=== PATIENT | female | born 1965 | race Caucasian/White ===

== ENCOUNTER 2019-03-08 15:32 | Emergency (ER) | payer OTHER ==
--- NOTE | 2019-03-08 17:47 | ED Physician Documentation ---
PD HPI OPHTHO - Stated complaint Stated Complaint: LEFT EYE REDNESS - History obtained from History obtained from: Patient - History of Present Illness Timing - onset: Today Timing - details: Still present Location: Left Associated symptoms: Redness Similar symptoms before: Has not had sx before - Additional information Additional information: The patient is a 53-year-old female who presents with redness of her left eye. It was noticed by her about one hour prior to arrival. She denies any traumatic injury. She denies any change in her visual acuity. She denies history of similar symptoms in the past. She wears corrective lenses. Review of Systems Constitutional: denies: Fever Eyes: reports: Other (Red discoloration left eye.). denies: Loss of vision, Decreased vision, Photophobia, Discharge, Irritation Ears: denies: Ear pain, Tinnitus/ringing Nose: reports: Congestion (slight) Throat: denies: Sore throat Cardiac: denies: Chest pain / pressure Respiratory: denies: Dyspnea, Cough GI: denies: Abdominal Pain, Nausea, Vomiting Skin: denies: Rash Musculoskeletal: denies: Neck pain, Extremity pain Neurologic: reports: Headache (mild). 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, Other - Present Medications Home Medications: Ambulatory Orders Medication Instructions Recorded Confirmed Cetirizine HCl 10 mg PO DAILY 03/08/19 03/08/19 - Allergies Allergies/Adverse Reactions: Allergies Allergy/AdvReac Type Severity Reaction Status Date / Time Sulfa (Sulfonamide Allergy Rash Verified 11/29/15 15:40 Antibiotics) codeine AdvReac Emesis Verified 11/29/15 15:40 - Social History Does the pt smoke?: No Smoking Status: Never smoker Does the pt drink ETOH?: No Does the pt have substance abuse?: No - Immunizations Immunizations are current?: Yes PD ED PE NORMAL - Vitals Vital signs reviewed: Yes - General General: Alert and oriented X 3, Well developed/nourished - HEENT HEENT: Atraumatic, PERRL, EOMI, Pharynx benign, Other (Scleral hemorrhages noted on the inferior and medial aspects of the sclera of the left eye. Visual acuity is 20/15 in the left eye with corrective lenses, and 20/20 in the right eye.) - Neck Neck: Supple, no meningeal sign, No adenopathy - Cardiac Cardiac: RRR - Respiratory Respiratory: No respiratory distress - Neuro Neuro: Alert and oriented X 3, No motor deficit, Normal speech Results - Vitals Vitals: Oxygen O2 Source Room air PD MEDICAL DECISION MAKING - ED course Complexity details: considered differential, d/w patient, d/w family ED course: The patient's presentation is significant for scleral hemorrhage of the left eye. There is no history of trauma, and no evidence of foreign body or conjunctival injury. Visual acuity is intact. No further medical treatment as clinically indicated at this time. I discussed with the patient and her the expected course of symptoms, as well as potentially worrisome signs or symptoms that should prompt reevaluation in the emergency department. Departure - Departure Disposition: 01 Home, Self Care Clinical Impression: Scleral hemorrhage of left eye Condition: Stable Instructions: ED Eye Injury Subconj Hemorrhage Follow-Up: Sienna Jara ARNP [Primary Care Provider] - Comments: Try to avoid rubbing your eye. Follow-up with your primary physician, or return to the emergency department, if you develop increasing pain or decreasing visual acuity in your eye, or otherwise worsening symptoms. Discharge Date/Time: 03/08/19 17:52
== END 2019-03-08 17:52 | disposition home or self-care (01) ==
LOC: ED 15:50
DX: H11.32 Conjunctival hemorrhage, left eye (principal)
CPT/HCPCS: 99282

== ENCOUNTER 2019-09-13 12:54 | Emergency (ER) | payer OTHER ==
[2019-09-13 13:02] VITALS: BP 147/81
[2019-09-13] MEDS ORDERED: LIDOCAINE 1% 2 ML VIAL MC ONE (13:14)
[2019-09-13] MEDS ORDERED: cefTRIAXone 1 GM VIAL IM STA (13:14)
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
== END 2019-09-13 13:33 | disposition home or self-care (01) ==
LOC: ED 12:54
DX: L03.211 Cellulitis of face (principal); T20.10XA Burn of first degree of head, face, and neck, unspecified site, initial encounter; X10.2XXA Contact with fats and cooking oils, initial encounter; L01.00 Impetigo, unspecified
CPT/HCPCS: 99282; 99283

== ENCOUNTER 2019-09-14 13:53 | Observation (INO) | payer OTHER ==
[2019-09-14] MEDS ORDERED: PIPERACILLIN/TAZOBACTAM 3.375 GM in SODIUM CHLORIDE 0.9% MINIBAG 100 ML IV STA (14:15)
[2019-09-14] MEDS ORDERED: VANCOMYCIN INJ 1 GM in SODIUM CHLORIDE 0.9% 500 ML IV STA (14:15)
[2019-09-14 14:30] LABS: BASOPHILS # (AUTO) 0.1 10^3/uL (0.0-0.1); BASOPHILS % (AUTO) 0.9 %; EOSINOPHILS # (AUTO) 0.5 10^3/uL (0.0-0.7); EOSINOPHILS % (AUTO) 6.2 %; HGB - HEMOGLOBIN 15.1 g/dL (12.0-16.0); LYMPHOCYTES # (AUTO) 1.9 10^3/uL (1.5-3.5); LYMPHOCYTES % (AUTO) 24.6 %; MEAN CORPUSCULAR HEMOGLOBIN 30.3 pg (27.0-31.0); MEAN CORPUSCULAR HGB CONC 33.2 g/dL (32.0-36.0); MEAN CORPUSCULAR VOLUME 91.4 fL (81.0-99.0); MEAN PLATELET VOLUME 9.8 fL (7.9-10.8); MONOCYTES # (AUTO) 0.7 10^3/uL (0.0-1.0); MONOCYTES % (AUTO) 9.4 %; NEUTROPHILS # (AUTO) 4.6 10^3/uL (1.5-6.6); NEUTROPHILS % (AUTO) 58.5 %; PLT - PLATELET COUNT 238 10^3/uL (130-450); RED BLOOD COUNT 4.98 10^6/uL (4.20-5.40); RED CELL DISTRIBUTION WIDTH 13.2 % (12.0-15.0); WHITE BLOOD COUNT 7.8 x10^3/uL (4.8-10.8)
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
[2019-09-14 14:39] LABS: CALCIUM 9.9 mg/dL (8.5-10.3); CREATININE 0.6 mg/dL (0.4-1.0)
[2019-09-14] MEDS ORDERED: PROCHLORPERAZINE 10 MG/2 ML VIAL IVP PRN (15:21)
[2019-09-14] MEDS ORDERED: SODIUM CHLORIDE FLUSH 0.9% 10 ML SYRINGE IVP PRN (15:21)
[2019-09-14] MEDS ORDERED: traMADol 50 MG TABLET PO PRN (15:25)
[2019-09-14] MEDS ORDERED: VANCOMYCIN PER PHARMACY 100 GM in SODIUM CHLORIDE 0.9% 250 ML IV SCH (16:00)
[2019-09-14] MEDS ORDERED: D5NS W/20 MEQ KCL 1,000 ML IV SCH (17:00)
[2019-09-14] MEDS: SODIUM CHLORIDE FLUSH 0.9% 10 ML SYRINGE IVP SCH (17:22)
[2019-09-14] MEDS: ACETAMINOPHEN 325 MG TABLET PO PRN (18:00)
[2019-09-14] MEDS ORDERED: diphenhydrAMINE 25 MG CAPSULE PO PRN (19:15)
[2019-09-14] MEDS: diphenhydrAMINE 25 MG CAPSULE PO PRN (19:36)
[2019-09-14] MEDS: PIPERACILLIN/TAZOBACTAM 3.375 GM in SODIUM CHLORIDE 0.9% MINIBAG 100 ML IV SCH (22:10)
[2019-09-14] MEDS: FAMOTIDINE 20 MG TABLET PO SCH (22:10)
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
[2019-09-15] MEDS: VANCOMYCIN INJ 1 GM in SODIUM CHLORIDE 0.9% 250 ML IV SCH ×2 (03:51→15:49)
[2019-09-15] MEDS: diphenhydrAMINE 25 MG CAPSULE PO PRN (04:02)
[2019-09-15] MEDS: ACETAMINOPHEN 325 MG TABLET PO PRN ×2 (04:02→08:40)
[2019-09-15] MEDS: SODIUM CHLORIDE FLUSH 0.9% 10 ML SYRINGE IVP SCH ×2 (04:06→08:42)
[2019-09-15 04:50] LABS: BASOPHILS # (AUTO) 0.1 10^3/uL (0.0-0.1); BASOPHILS % (AUTO) 0.9 %; EOSINOPHILS # (AUTO) 0.6 10^3/uL (0.0-0.7); HGB - HEMOGLOBIN 12.2 g/dL (12.0-16.0); LYMPHOCYTES # (AUTO) 2.2 10^3/uL (1.5-3.5); LYMPHOCYTES % (AUTO) 29.9 %; MEAN CORPUSCULAR HEMOGLOBIN 29.3 pg (27.0-31.0); MEAN CORPUSCULAR HGB CONC 32.3 g/dL (32.0-36.0); MEAN CORPUSCULAR VOLUME 90.9 fL (81.0-99.0); MEAN PLATELET VOLUME 9.7 fL (7.9-10.8); MONOCYTES # (AUTO) 0.9 10^3/uL (0.0-1.0); MONOCYTES % (AUTO) 12.1 %; NEUTROPHILS # (AUTO) 3.6 10^3/uL (1.5-6.6); NEUTROPHILS % (AUTO) 48.7 %; PLT - PLATELET COUNT 174 10^3/uL (130-450); RED BLOOD COUNT 4.16 10^6/uL (4.20-5.40); RED CELL DISTRIBUTION WIDTH 13.4 % (12.0-15.0); WHITE BLOOD COUNT 7.4 x10^3/uL (4.8-10.8)
[2019-09-15 04:59] LABS: CALCIUM 8.4 mg/dL (8.5-10.3); CREATININE 0.5 mg/dL (0.4-1.0); MAGNESIUM 1.6 mg/dL (1.7-2.8)
[2019-09-15] MEDS: PIPERACILLIN/TAZOBACTAM 3.375 GM in SODIUM CHLORIDE 0.9% MINIBAG 100 ML IV SCH ×2 (05:57→14:15)
[2019-09-15] MEDS ORDERED: diphenhydrAMINE 25 MG CAPSULE PO PRN (07:17)
[2019-09-15] MEDS: FAMOTIDINE 20 MG TABLET PO SCH (08:41)
[2019-09-15] MEDS ORDERED: POLYETHYLENE GLYCOL 3350 17 GM PACKET PO SCH (09:00)
[2019-09-15] MEDS ORDERED: LORATADINE 10 MG TABLET PO SCH (09:00)
[2019-09-15] MEDS ORDERED: MAGNESIUM OXIDE 400 MG TABLET PO SCH (09:00)
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
[2019-09-15 14:41] LABS: HEMOGLOBIN A1C 0.54 g/dL
--- NOTE | 2019-09-15 14:48 | CT Report ---
Reason: swollen eyes and recent URI, eval for sinusitis Procedure Date: 09/15/2019 Accession Number: [id number] / [id number] Procedure: CT - Sinuses CPT Code: FULL RESULT: EXAM: CT SINUS EXAM DATE: 09/15/2019 02:31 PM. HISTORY: Swollen eyes and recent URI, eval for sinusitis. COMPARISONS: HEAD W/O 11/29/2015 5:25 PM. TECHNIQUE: Routine multi-axial CT imaging performed through the sinuses. Iodinated IV contrast: None. Reconstructions: Multiplanar reformats. In accordance with CT protocol optimization, one or more of the following dose reduction techniques were utilized for this exam: automated exposure control, adjustment of mA and/or KV based on patient size, or use of iterative reconstructive technique. FINDINGS: RIGHT Frontal: Normal. Ethmoid: Opacification of several right-sided ethmoid air cells. Maxillary: Mild mucosal thickening, predominantly within the antrum floor and medial wall. Sphenoid: Normal. Drainage Pathways: Frontal recess appears patent. Right ostiomeatal unit appears occluded by soft tissue thickening, further narrowed by a right-sided Mary Beth cell. LEFT Frontal: Normal. Ethmoid: Normal. Maxillary: Normal. Sphenoid: Normal. Drainage Pathways: The frontal recess, ostiomeatal complex and sphenoethmoidal recess are patent and normal. Accessory ostium noted. Nasal Cavity: Deviation of the nasal septum to the left. Otherwise, unremarkable. Osseous Structures: Unremarkable. Orbits: Unremarkable. Other: None. IMPRESSION: Mild mucosal disease on the right with occlusion of the right ostiomeatal unit. Otherwise, paranasal sinus CT is unremarkable. RADIA
[2019-09-15] MEDS ORDERED: INSULIN ASPART 300 UNIT/3 ML PEN SUBQ SCH (17:00)
[2019-09-15 17:48] VITALS: BP 120/72
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
== END 2019-09-15 17:56 | disposition home or self-care (01) ==
LOC: ED 13:53 → MS3 15:20
PROVIDERS: ADMIT Internal Medicine; ATTEND Internal Medicine
DX: L03.211 Cellulitis of face (principal); T20.03XA Burn of unspecified degree of chin, initial encounter; J01.90 Acute sinusitis, unspecified; R73.03 Prediabetes; Z87.891 Personal history of nicotine dependence; R51 Headache
CPT/HCPCS: 36415; 70486; 80048; 83036; 83735; 85025; 96361; 96365; 96366; 96367; 96375; 99284; 99285; A9270; G0378; J3370

== ENCOUNTER 2023-03-28 11:07 | Emergency (ER) | payer OTHER ==
[2023-03-28 11:24] VITALS: BP 134/76
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
--- OUTSIDE RECORDS SUMMARY | 2023-03-28 12:19 | EXTERNAL MEDICAL SUMMARY RPT | Continuity of Care Document ---
Author Name Unknown Address [address] [place] [address] Phone Organization [facility] Address [address] [place] [address] Phone Care Team Providers Care Lacemaker Name Role Phone Flora Bae Unavailable Unavailable Allergies and Intolerances date description facility type (no date) [facility] (unknown) Immunizations date description facility 2023-03-22 00:00 Tetanus, Diphtheria, Pertussis (Tdap) [facility] Results/Labs test date author facility value unit interpretation Result panel 1 (unknown) (no date) (unknown) (unknown) (no value) (units unknown) (unknown) (unknown) (no date) (unknown) (unknown) [id number] (units unknown) (unknown) (unknown) (no date) (unknown) (unknown) 03/22/23 (units unknown) (unknown) (unknown) (no date) (unknown) (unknown) 11:12 (units unknown) (unknown) (unknown) (no date) (unknown) (unknown) Age/Sex: 58 / F Date of Service: (units unknown) (unknown) (unknown) (no date) (unknown) (unknown) Allergies (units unknown) (unknown) (unknown) (no date) (unknown) (unknown) [facility] (units unknown) (unknown) (unknown) (no date) (unknown) (unknown) [place] [address] (units unknown) (unknown) (unknown) (no date) (unknown) (unknown) Attending Dr: Flora Bae P.A-C (units unknown) (unknown) (unknown) (no date) (unknown) (unknown) BMI 2.2 (units unknown) (unknown) (unknown) (no date) (unknown) (unknown) BP 142/90 H (units unknown) (unknown) (unknown) (no date) (unknown) (unknown) Blood Pressure Location Lt brachial (units unknown) (unknown) (unknown) (no date) (unknown) (unknown) : 7 Acct:[id number] (units unknown) (unknown) (unknown) (no date) (unknown) (unknown) Dept at . (units unknown) (unknown) (unknown) (no date) (unknown) (unknown) Documented By: Flora Bae 03/22/23 1108 (units unknown) (unknown) (unknown) (no date) (unknown) (unknown) Draft (units unknown) (unknown) (unknown) (no date) (unknown) (unknown) Height 5 ft (units unknown) (unknown) (unknown) (no date) (unknown) (unknown) Hives (units unknown) (unknown) (unknown) (no date) (unknown) (unknown) Intake Note: (units unknown) (unknown) (unknown) (no date) (unknown) (unknown) Intake perform ed by: Shamar Mcqueen (units unknown) (unknown) (unknown) (no date) (unknown) (unknown) Intake (units unknown) (unknown) (unknown) (no date) (unknown) (unknown) Intake- Alex hinds Staff (units unknown) (unknown) (unknown) (no date) (unknown) (unknown) Loc: [facility] (units unknown) (unknown) (unknown) (no date) (unknown) (unknown) Medications (units unknown) (unknown) (unknown) (no date) (unknown) (unknown) No Known Home Medications 03/22/23 [History Confirmed 03/22/23] (units unknown) (unknown) (unknown) (no date) (unknown) (unknown) Oxygen Deliver y Method room air (units unknown) (unknown) (unknown) (no date) (unknown) (unknown) PFSH (units unknown) (unknown) (unknown) (no date) (unknown) (unknown) Patient: Delphine Loco MR#: [id number] (units unknown) (unknown) (unknown) (no date) (unknown) (unknown) Position Sitting (un its unknown) (unknown) (unknown) (no date) (unknown) (unknown) Pt presents wi th a rash on chest for a week. Started off as a grease burn. (units unknown) (unknown) (unknown) (no date) (unknown) (unknown) Pulse 81 (units unknown) (unknown) (unknown) (no date) (unknown) (unknown) Pulse Oximetry (%) 99 (units unknown) (unknown) (unknown) (no date) (unknown) (unknown) Pulse Source Monitor (units unknown) (unknown) (unknown) (no date) (unknown) (unknown) Rash (units unknown) (unknown) (unknown) (no date) (unknown) (unknown) Reason For Visit (un its unknown) (unknown) (unknown) (no date) (unknown) (unknown) Signed By: (units unknown) (unknown) (unknown) (no date) (unknown) (unknown) Smoking Status : Former smoker (units unknown) (unknown) (unknown) (no date) (unknown) (unknown) Sulfa (Sulfona mide Antibiotics) Allergy (Mild, Verified 03/22/23 11:12) (units unknown) (unknown) (unknown) (no date) (unknown) (unknown) Temp 98.5 F (units unknown) (unknown) (unknown) (no date) (unknown) (unknown) Temp Source Skin (un its unknown) (unknown) (unknown) (no date) (unknown) (unknown) This note may have been all or partially generated using voice recognition (units unknown) (unknown) (unknown) (no date) (unknown) (unknown) Tobacco + Subs tance Use (units unknown) (unknown) (unknown) (no date) (unknown) (unknown) Tobacco Status (unit s unknown) (unknown) (unknown) (no date) (unknown) (unknown) Visit Reasons: rash burn on chest x1wk (units unknown) (unknown) (unknown) (no date) (unknown) (unknown) Vitals (units unknown) (unknown) (unknown) (no date) (unknown) (unknown) Walk In Clinic Visit (units unknown) (unknown) (unknown) (no date) (unknown) (unknown) Weight 11 lb 3 oz (u nits unknown) (unknown) (unknown) (no date) (unknown) (unknown) codeine Allerg y (Mild, Verified 03/22/23 11:12) (units unknown) (unknown) (unknown) (no date) (unknown) (unknown) have occurred. If there are any questions, please contact the Medical Records (units unknown) (unknown) (unknown) (no date) (unknown) (unknown) may occur. Occasional wrong-word or 'sound-alike' substitutions may have (units unknown) (unknown) (unknown) (no date) (unknown) (unknown) occurred due t o the inherent limitations of voice recognition software. Please (units unknown) (unknown) (unknown) (no date) (unknown) (unknown) read the note carefully and recognize, using context, where these substitutions (units unknown) (unknown) (unknown) (no date) (unknown) (unknown) software. 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 (units unknown) (unknown) Result panel 2 (unknown) (no date) (unknown) (unknown) (no value) (units unknown) (unknown) (unknown) (no date) (unknown) (unknown) (1) Contact dermatitis: (units unknown) (unknown) (unknown) (no date) (unknown) (unknown) (2) Burn: (units unknown) (unknown) (unknown) (no date) (unknown) (unknown) [id number] (units unknown) (unknown) (unknown) (no date) (unknown) (unknown) 03/22/23 1130 (units unknown) (unknown) (unknown) (no date) (unknown) (unknown) 03/22/23 (units unknown) (unknown) (unknown) (no date) (unknown) (unknown) 11:12 (units unknown) (unknown) (unknown) (no date) (unknown) (unknown) Age/Sex: 58 / F Date of Service: (units unknown) (unknown) (unknown) (no date) (unknown) (unknown) Allergies (units unknown) (unknown) (unknown) (no date) (unknown) (unknown) [facility] (units unknown) (unknown) (unknown) (no date) (unknown) (unknown) [place] [id number] (units unknown) (unknown) (unknown) (no date) (unknown) (unknown) Assessment + Plan (u nits unknown) (unknown) (unknown) (no date) (unknown) (unknown) Attending Dr: Flora Bae P.A-C (units unknown) (unknown) (unknown) (no date) (unknown) (unknown) BMI 2.2 (units unknown) (unknown) (unknown) (no date) (unknown) (unknown) BP 142/90 H (units unknown) (unknown) (unknown) (no date) (unknown) (unknown) Blood Pressure Location Lt brachial (units unknown) (unknown) (unknown) (no date) (unknown) (unknown) Chief Complaint (uni ts unknown) (unknown) (unknown) (no date) (unknown) (unknown) Chief Complain t: Burn on chest x 10 days, Rash x 6 days (units unknown) (unknown) (unknown) (no date) (unknown) (unknown) Contact dermat itis type: allergic Contact dermatitis trigger: other (units unknown) (unknown) (unknown) (no date) (unknown) (unknown) : 7 Acct:[id number] (units unknown) (unknown) (unknown) (no date) (unknown) (unknown) Dept at . (units unknown) (unknown) (unknown) (no date) (unknown) (unknown) Details: (units unknown) (unknown) (unknown) (no date) (unknown) (unknown) Discussed with patient that the rash does seem consistent with a contact (units unknown) (unknown) (unknown) (no date) (unknown) (unknown) Documented By: Flora Bae 03/22/23 1108 (units unknown) (unknown) (unknown) (no date) (unknown) (unknown) Exam Narrative (unit s unknown) (unknown) (unknown) (no date) (unknown) (unknown) Exam Narrative: (uni ts unknown) (unknown) (unknown) (no date) (unknown) (unknown) Exam (units unknown) (unknown) (unknown) (no date) (unknown) (unknown) General: Well-developed well-nourished 58-year-old female in no acute distress, (units unknown) (unknown) (unknown) (no date) (unknown) (unknown) HPI (units unknown) (unknown) (unknown) (no date) (unknown) (unknown) Height 152.4 cm (uni ts unknown) (unknown) (unknown) (no date) (unknown) (unknown) Hives (units unknown) (unknown) (unknown) (no date) (unknown) (unknown) Intake Note: (units unknown) (unknown) (unknown) (no date) (unknown) (unknown) Intake perform ed by: Shamar Mcqueen (units unknown) (unknown) (unknown) (no date) (unknown) (unknown) Intake (units unknown) (unknown) (unknown) (no date) (unknown) (unknown) Intake- Alex al Staff (units unknown) (unknown) (unknown) (no date) (unknown) (unknown) Loc: [facility] (units unknown) (unknown) (unknown) (no date) (unknown) (unknown) Medications (units unknown) (unknown) (unknown) (no date) (unknown) (unknown) No Known Home Medications 03/22/23 [History Confirmed 03/22/23] (units unknown) (unknown) (unknown) (no date) (unknown) (unknown) Oxygen Deliver y Method room air (units unknown) (unknown) (unknown) (no date) (unknown) (unknown) PFSH (units unknown) (unknown) (unknown) (no date) (unknown) (unknown) Patient is a 58-year-old female presenting for evaluation of a rash over her (units unknown) (unknown) (unknown) (no date) (unknown) (unknown) Patient: Delphine Loco MR#: [id number] (units unknown) (unknown) (unknown) (no date) (unknown) (unknown) Plan (units unknown) (unknown) (unknown) (no date) (unknown) (unknown) Position Sitting (un its unknown) (unknown) (unknown) (no date) (unknown) (unknown) Pt presents wi th a rash on chest for a week. Started off as a grease burn. (units unknown) (unknown) (unknown) (no date) (unknown) (unknown) Pulse 81 (units unknown) (unknown) (unknown) (no date) (unknown) (unknown) Pulse Oximetry (%) 99 (units unknown) (unknown) (unknown) (no date) (unknown) (unknown) Pulse Source Monitor (units unknown) (unknown) (unknown) (no date) (unknown) (unknown) Qualifiers: (units unknown) (unknown) (unknown) (no date) (unknown) (unknown) ROS Narrative (units unknown) (unknown) (unknown) (no date) (unknown) (unknown) ROS Narrative: (unit s unknown) (unknown) (unknown) (no date) (unknown) (unknown) ROS (units unknown) (unknown) (unknown) (no date) (unknown) (unknown) Rash (units unknown) (unknown) (unknown) (no date) (unknown) (unknown) Reason For Visit (un its unknown) (unknown) (unknown) (no date) (unknown) (unknown) She notes that it is around the burn area where the ointment was applied and (units unknown) (unknown) (unknown) (no date) (unknown) (unknown) She says the r johann still seems to be getting worse. She describes it as itchy. (units unknown) (unknown) (unknown) (no date) (unknown) (unknown) Signed By: <Electronically signed by Flora Bae> (units unknown) (unknown) (unknown) (no date) (unknown) (unknown) Signed (units unknown) (unknown) (unknown) (no date) (unknown) (unknown) Skin: 8 in [place] g burn across anterior chest which appears dull red in color and (units unknown) (unknown) (unknown) (no date) (unknown) (unknown) Smoking Status : Former smoker (units unknown) (unknown) (unknown) (no date) (unknown) (unknown) Sulfa (Sulfona mide Antibiotics) Allergy (Mild, Verified 03/22/23 11:12) (units unknown) (unknown) (unknown) (no date) (unknown) (unknown) Temp 98.5 F (units unknown) (unknown) (unknown) (no date) (unknown) (unknown) Temp Source Skin (un its unknown) (unknown) (unknown) (no date) (unknown) (unknown) This note may have been all or partially generated using voice recognition (units unknown) (unknown) (unknown) (no date) (unknown) (unknown) Tobacco + Subs tance Use (units unknown) (unknown) (unknown) (no date) (unknown) (unknown) Tobacco Status (unit s unknown) (unknown) (unknown) (no date) (unknown) (unknown) Visit Reasons: rash burn on chest x1wk (units unknown) (unknown) (unknown) (no date) (unknown) (unknown) Vitals (units unknown) (unknown) (unknown) (no date) (unknown) (unknown) Walk In Clinic Visit (units unknown) (unknown) (unknown) (no date) (unknown) (unknown) Weight 5.075 kg (uni ts unknown) (unknown) (unknown) (no date) (unknown) (unknown) afterwards. Cleopatra lepe says that her last application of coconut oil was on Tuesday. (units unknown) (unknown) (unknown) (no date) (unknown) (unknown) agents (units unknown) (unknown) (unknown) (no date) (unknown) (unknown) and wash gentl y with soap and water. She may apply Vaseline to the wound to (units unknown) (unknown) (unknown) (no date) (unknown) (unknown) anterior chest for the last 6 days. She sustained a burn from grease on her (units unknown) (unknown) (unknown) (no date) (unknown) (unknown) applied coconu t oil to her chest 6 days ago and noticed a rash occurred (units unknown) (unknown) (unknown) (no date) (unknown) (unknown) cautioned her to avoid exposure to this trigger again. Discussed with patient (units unknown) (unknown) (unknown) (no date) (unknown) (unknown) chest roughly 10 days ago. She states that seems to be healing well, but she (units unknown) (unknown) (unknown) (no date) (unknown) (unknown) codeine Allerg y (Mild, Verified 03/22/23 11:12) (units unknown) (unknown) (unknown) (no date) (unknown) (unknown) consistent wit h contact dermatitis. No induration, fluctuance or exudate noted. (units unknown) (unknown) (unknown) (no date) (unknown) (unknown) dermatitis. Cleopatra lepe is been treated today with 10 mg of Decadron by mouth. I also (units unknown) (unknown) (unknown) (no date) (unknown) (unknown) dry to the [facility]. Surrounding the burn are interrupted erythematous bumps (units unknown) (unknown) (unknown) (no date) (unknown) (unknown) further treatm ent and evaluation. She is agreeable to plan of care. We have (units unknown) (unknown) (unknown) (no date) (unknown) (unknown) have occurred. If there are any questions, please contact the Medical Records (units unknown) (unknown) (unknown) (no date) (unknown) (unknown) help it contin ued to heal better. We discussed signs of infection including (units unknown) (unknown) (unknown) (no date) (unknown) (unknown) may occur. Occasional wrong-word or 'sound-alike' substitutions may have (units unknown) (unknown) (unknown) (no date) (unknown) (unknown) occurred due t o the inherent limitations of voice recognition software. Please (units unknown) (unknown) (unknown) (no date) (unknown) (unknown) over her back. Her last tetanus was updated over 5 years ago. (units unknown) (unknown) (unknown) (no date) (unknown) (unknown) per HPI (units unknown) (unknown) (unknown) (no date) (unknown) (unknown) read the note carefully and recognize, using context, where these substitutions (units unknown) (unknown) (unknown) (no date) (unknown) (unknown) recommend that she take [id number] allergy medicine and Benadryl at night (units unknown) (unknown) (unknown) (no date) (unknown) (unknown) seems to be spreading down her superior abdomen. She denies any involvement (units unknown) (unknown) (unknown) (no date) (unknown) (unknown) software. 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 This steroid should have affect for the next 3 days. I (units unknown) (unknown) (unknown) (no date) (unknown) (unknown) trigger Qualif ied Code(s): L23.89 - Allergic contact dermatitis due to other (units unknown) (unknown) (unknown) (no date) (unknown) (unknown) updated her te tanus today. (units unknown) (unknown) Result panel 3 (unknown) (no date) (unknown) (unknown) (no value) (units unknown) (unknown) (unknown) (no date) (unknown) (unknown) (1) Contact dermatitis: (units unknown) (unknown) (unknown) (no date) (unknown) (unknown) (2) Burn: (units unknown) (unknown) (unknown) (no date) (unknown) (unknown) ADDENDUM (units unknown) (unknown) (unknown) (no date) (unknown) (unknown) [id number] (units unknown) (unknown) (unknown) (no date) (unknown) (unknown) 03/22/23 1130 (units unknown) (unknown) (unknown) (no date) (unknown) (unknown) 03/22/23 1135 (units unknown) (unknown) (unknown) (no date) (unknown) (unknown) 03/22/23 (units unknown) (unknown) (unknown) (no date) (unknown) (unknown) 10 mg PO PO 3019 12/20/24 [id number] [facility] (units unknown) (unknown) (unknown) (no date) (unknown) (unknown) 11:12 (units unknown) (unknown) (unknown) (no date) (unknown) (unknown) Addendum Docum ented By: PETRA Mcqueen (units unknown) (unknown) (unknown) (no date) (unknown) (unknown) Addendum Signed By: (units unknown) (unknown) (unknown) (no date) (unknown) (unknown) Administered b y: Shamar Mcqueen MA on 03/22/23 11:34 (units unknown) (unknown) (unknown) (no date) (unknown) (unknown) Age/Sex: 58 / F Date of Service: (units unknown) (unknown) (unknown) (no date) (unknown) (unknown) Allergies (units unknown) (unknown) (unknown) (no date) (unknown) (unknown) [facility] (units unknown) (unknown) (unknown) (no date) (unknown) (unknown) [place] [id number] (units unknown) (unknown) (unknown) (no date) (unknown) (unknown) Assessment + Plan (u nits unknown) (unknown) (unknown) (no date) (unknown) (unknown) Attending Dr: Flora Bae P.A-C (units unknown) (unknown) (unknown) (no date) (unknown) (unknown) BMI 2.2 (units unknown) (unknown) (unknown) (no date) (unknown) (unknown) BP 142/90 H (units unknown) (unknown) (unknown) (no date) (unknown) (unknown) Blood Pressure Location Lt brachial (units unknown) (unknown) (unknown) (no date) (unknown) (unknown) Chief Complaint (uni ts unknown) (unknown) (unknown) (no date) (unknown) (unknown) Chief Complain t: Burn on chest x 10 days, Rash x 6 days (units unknown) (unknown) (unknown) (no date) (unknown) (unknown) Comments: ... (units unknown) (unknown) (unknown) (no date) (unknown) (unknown) Contact dermat itis type: allergic Contact dermatitis trigger: other (units unknown) (unknown) (unknown) (no date) (unknown) (unknown) : 7 Acct:[id number] (units unknown) (unknown) (unknown) (no date) (unknown) (unknown) Dept at . (units unknown) (unknown) (unknown) (no date) (unknown) (unknown) Details: (units unknown) (unknown) (unknown) (no date) (unknown) (unknown) Discussed with patient that the rash does seem consistent with a contact (units unknown) (unknown) (unknown) (no date) (unknown) (unknown) Documented By: Flora Bae 03/22/23 1108 (units unknown) (unknown) (unknown) (no date) (unknown) (unknown) Dose Route Adm in Location Lot Number Expiration Date NDC (units unknown) (unknown) (unknown) (no date) (unknown) (unknown) Exam Narrative (unit s unknown) (unknown) (unknown) (no date) (unknown) (unknown) Exam Narrative: (uni ts unknown) (unknown) (unknown) (no date) (unknown) (unknown) Exam (units unknown) (unknown) (unknown) (no date) (unknown) (unknown) General: Well-developed well-nourished 58-year-old female in no acute distress, (units unknown) (unknown) (unknown) (no date) (unknown) (unknown) HPI (units unknown) (unknown) (unknown) (no date) (unknown) (unknown) Height 152.4 cm (uni ts unknown) (unknown) (unknown) (no date) (unknown) (unknown) Hives (units unknown) (unknown) (unknown) (no date) (unknown) (unknown) Intake Note: (units unknown) (unknown) (unknown) (no date) (unknown) (unknown) Intake perform ed by: Shamar Mcqueen (units unknown) (unknown) (unknown) (no date) (unknown) (unknown) Intake (units unknown) (unknown) (unknown) (no date) (unknown) (unknown) Intake- Clin al Staff (units unknown) (unknown) (unknown) (no date) (unknown) (unknown) Loc: [facility] (units unknown) (unknown) (unknown) (no date) (unknown) (unknown) 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) (unknown) (unknown) (no date) (unknown) (unknown) Medications (units unknown) (unknown) (unknown) (no date) (unknown) (unknown) No Known Home Medications 03/22/23 [History Confirmed 03/22/23] (units unknown) (unknown) (unknown) (no date) (unknown) (unknown) Office Meds (units unknown) (unknown) (unknown) (no date) (unknown) (unknown) Office Procedu re Documentation entered by Shamar Mcqueen MA 03/22/23 11:35: (units unknown) (unknown) (unknown) (no date) (unknown) (unknown) Oxygen Deliver y Method room air (units unknown) (unknown) (unknown) (no date) (unknown) (unknown) PFSH (units unknown) (unknown) (unknown) (no date) (unknown) (unknown) Patient is a 58-year-old female presenting for evaluation of a rash over her (units unknown) (unknown) (unknown) (no date) (unknown) (unknown) Patient: Delphine Loco MR#: [id number] (units unknown) (unknown) (unknown) (no date) (unknown) (unknown) Performing Provider: Flora Bae PA-C (units unknown) (unknown) (unknown) (no date) (unknown) (unknown) Plan (units unknown) (unknown) (unknown) (no date) (unknown) (unknown) Position Sitting (un its unknown) (unknown) (unknown) (no date) (unknown) (unknown) Pt presents wi th a rash on chest for a week. Started off as a grease burn. (units unknown) (unknown) (unknown) (no date) (unknown) (unknown) Pulse 81 (units unknown) (unknown) (unknown) (no date) (unknown) (unknown) Pulse Oximetry (%) 99 (units unknown) (unknown) (unknown) (no date) (unknown) (unknown) Pulse Source Monitor (units unknown) (unknown) (unknown) (no date) (unknown) (unknown) Qualifiers: (units unknown) (unknown) (unknown) (no date) (unknown) (unknown) ROS Narrative (units unknown) (unknown) (unknown) (no date) (unknown) (unknown) ROS Narrative: (unit s unknown) (unknown) (unknown) (no date) (unknown) (unknown) ROS (units unknown) (unknown) (unknown) (no date) (unknown) (unknown) Rash (units unknown) (unknown) (unknown) (no date) (unknown) (unknown) Reason For Visit (un its unknown) (unknown) (unknown) (no date) (unknown) (unknown) She notes that it is around the burn area where the ointment was applied and (units unknown) (unknown) (unknown) (no date) (unknown) (unknown) She says the r johann still seems to be getting worse. She describes it as itchy. (units unknown) (unknown) (unknown) (no date) (unknown) (unknown) Signed By: <Electronically signed by Flora Bae> (units unknown) (unknown) (unknown) (no date) (unknown) (unknown) Signed with Addenda (units unknown) (unknown) (unknown) (no date) (unknown) (unknown) Skin: 8 in kat[place] g burn across anterior chest which appears dull red in color and (units unknown) (unknown) (unknown) (no date) (unknown) (unknown) Smoking Status : Former smoker (units unknown) (unknown) (unknown) (no date) (unknown) (unknown) Sulfa (Sulfona mide Antibiotics) Allergy (Mild, Verified 03/22/23 11:12) (units unknown) (unknown) (unknown) (no date) (unknown) (unknown) Temp 98.5 F (units unknown) (unknown) (unknown) (no date) (unknown) (unknown) Temp Source Skin (un its unknown) (unknown) (unknown) (no date) (unknown) (unknown) This note may have been all or partially generated using voice recognition (units unknown) (unknown) (unknown) (no date) (unknown) (unknown) Tobacco + Subs tance Use (units unknown) (unknown) (unknown) (no date) (unknown) (unknown) Tobacco Status (unit s unknown) (unknown) (unknown) (no date) (unknown) (unknown) Visit Reasons: rash burn on chest x1wk (units unknown) (unknown) (unknown) (no date) (unknown) (unknown) Vitals (units unknown) (unknown) (unknown) (no date) (unknown) (unknown) Walk In Clinic Visit (units unknown) (unknown) (unknown) (no date) (unknown) (unknown) Weight 5.075 kg (uni ts unknown) (unknown) (unknown) (no date) (unknown) (unknown) afterwards. Cleopatra lepe says that her last application of coconut oil was on Tuesday. (units unknown) (unknown) (unknown) (no date) (unknown) (unknown) agents (units unknown) (unknown) (unknown) (no date) (unknown) (unknown) and wash gentl y with soap and water. She may apply Vaseline to the wound to (units unknown) (unknown) (unknown) (no date) (unknown) (unknown) anterior chest for the last 6 days. She sustained a burn from grease on her (units unknown) (unknown) (unknown) (no date) (unknown) (unknown) applied coconu t oil to her chest 6 days ago and noticed a rash occurred (units unknown) (unknown) (unknown) (no date) (unknown) (unknown) cautioned her to avoid exposure to this trigger again. Discussed with patient (units unknown) (unknown) (unknown) (no date) (unknown) (unknown) chest roughly 10 days ago. She states that seems to be healing well, but she (units unknown) (unknown) (unknown) (no date) (unknown) (unknown) codeine Allerg y (Mild, Verified 03/22/23 11:12) (units unknown) (unknown) (unknown) (no date) (unknown) (unknown) consistent wit h contact dermatitis. No induration, fluctuance or exudate noted. (units unknown) (unknown) (unknown) (no date) (unknown) (unknown) dermatitis. Sh e is been treated today with 10 mg of Decadron by mouth. I also (units unknown) (unknown) (unknown) (no date) (unknown) (unknown) dexamethasone sodium phosphate (units unknown) (unknown) (unknown) (no date) (unknown) (unknown) dry to the [facility]. Surrounding the burn are interrupted erythematous bumps (units unknown) (unknown) (unknown) (no date) (unknown) (unknown) further treatm ent and evaluation. She is agreeable to plan of care. We have (units unknown) (unknown) (unknown) (no date) (unknown) (unknown) have occurred. If there are any questions, please contact the Medical Records (units unknown) (unknown) (unknown) (no date) (unknown) (unknown) help it contin ued to heal better. We discussed signs of infection including (units unknown) (unknown) (unknown) (no date) (unknown) (unknown) may occur. Occasional wrong-word or 'sound-alike' substitutions may have (units unknown) (unknown) (unknown) (no date) (unknown) (unknown) occurred due t o the inherent limitations of voice recognition software. Please (units unknown) (unknown) (unknown) (no date) (unknown) (unknown) over her back. Her last tetanus was updated over 5 years ago. (units unknown) (unknown) (unknown) (no date) (unknown) (unknown) per HPI (units unknown) (unknown) (unknown) (no date) (unknown) (unknown) read the note carefully and recognize, using context, where these substitutions (units unknown) (unknown) (unknown) (no date) (unknown) (unknown) recommend that she take [id number]-[id number] allergy medicine and Benadryl at night (units unknown) (unknown) (unknown) (no date) (unknown) (unknown) seems to be spreading down her superior abdomen. She denies any involvement (units unknown) (unknown) (unknown) (no date) (unknown) (unknown) software. 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 This steroid should have affect for the next 3 days. I (units unknown) (unknown) (unknown) (no date) (unknown) (unknown) trigger Qualif ied Code(s): L23.89 - Allergic contact dermatitis due to other (units unknown) (unknown) (unknown) (no date) (unknown) (unknown) updated her te tanus today. (units unknown) (unknown) Result panel 4 (unknown) (no date) (unknown) (unknown) (no value) (units unknown) (unknown) (unknown) (no date) (unknown) (unknown) (1) Contact dermatitis: (units unknown) (unknown) (unknown) (no date) (unknown) (unknown) (2) Burn: (units unknown) (unknown) (unknown) (no date) (unknown) (unknown) ADDENDUM (units unknown) (unknown) (unknown) (no date) (unknown) (unknown) 0.5 mL IM Left Deltoid [id number] 01/05/25 [id number] [employer] (units unknown) (unknown) (unknown) (no date) (unknown) (unknown) [id number] (units unknown) (unknown) (unknown) (no date) (unknown) (unknown) 03/22/23 1130 (units unknown) (unknown) (unknown) (no date) (unknown) (unknown) 03/22/23 1135 (units unknown) (unknown) (unknown) (no date) (unknown) (unknown) 03/22/23 1136 (units unknown) (unknown) (unknown) (no date) (unknown) (unknown) 03/22/23 Singl e Vaccine 21 (units unknown) (unknown) (unknown) (no date) (unknown) (unknown) 03/22/23 (units unknown) (unknown) (unknown) (no date) (unknown) (unknown) 10 mg PO PO 3019 12/20/24 [id number] [facility] (units unknown) (unknown) (unknown) (no date) (unknown) (unknown) 11:12 (units unknown) (unknown) (unknown) (no date) (unknown) (unknown) Adacel(Tdap Adolesn/Adult)(PF) (units unknown) (unknown) (unknown) (no date) (unknown) (unknown) Addendum Docum ented By: PETRA Mcqueen (units unknown) (unknown) (unknown) (no date) (unknown) (unknown) Addendum Signed By: (units unknown) (unknown) (unknown) (no date) (unknown) (unknown) Administered b y: Shamar Mcqueen MA on 03/22/23 11:34 (units unknown) (unknown) (unknown) (no date) (unknown) (unknown) Administered b y: Shamar Mcqueen MA on 03/22/23 11:35 (units unknown) (unknown) (unknown) (no date) (unknown) (unknown) Administration Comments: ....... (units unknown) (unknown) (unknown) (no date) (unknown) (unknown) Age/Sex: 58 / F Date of Service: (units unknown) (unknown) (unknown) (no date) (unknown) (unknown) Allergies (units unknown) (unknown) (unknown) (no date) (unknown) (unknown) [facility] (units unknown) (unknown) (unknown) (no date) (unknown) (unknown) [place] [id number] (units unknown) (unknown) (unknown) (no date) (unknown) (unknown) Assessment + Plan (u nits unknown) (unknown) (unknown) (no date) (unknown) (unknown) Attending Dr: Flora Bae P.A-C (units unknown) (unknown) (unknown) (no date) (unknown) (unknown) BMI 2.2 (units unknown) (unknown) (unknown) (no date) (unknown) (unknown) BP 142/90 H (units unknown) (unknown) (unknown) (no date) (unknown) (unknown) Blood Pressure Location Lt brachial (units unknown) (unknown) (unknown) (no date) (unknown) (unknown) Chief Complaint (uni ts unknown) (unknown) (unknown) (no date) (unknown) (unknown) Chief Complain t: Burn on chest x 10 days, Rash x 6 days (units unknown) (unknown) (unknown) (no date) (unknown) (unknown) Comments: ... (units unknown) (unknown) (unknown) (no date) (unknown) (unknown) Contact dermat itis type: allergic Contact dermatitis trigger: other (units unknown) (unknown) (unknown) (no date) (unknown) (unknown) : 7 Acct:[id number] (units unknown) (unknown) (unknown) (no date) (unknown) (unknown) Dept at . (units unknown) (unknown) (unknown) (no date) (unknown) (unknown) Details: (units unknown) (unknown) (unknown) (no date) (unknown) (unknown) Discussed with patient that the rash does seem consistent with a contact (units unknown) (unknown) (unknown) (no date) (unknown) (unknown) Documented By: Flora Bea 03/22/23 1108 (units unknown) (unknown) (unknown) (no date) (unknown) (unknown) Dose Route Adm in Location Lot Number Expiration Date NDC (units unknown) (unknown) (unknown) (no date) (unknown) (unknown) Eligibility Eligibility Date Funding Source (units unknown) (unknown) (unknown) (no date) (unknown) (unknown) Exam Narrative (unit s unknown) (unknown) (unknown) (no date) (unknown) (unknown) Exam Narrative: (uni ts unknown) (unknown) (unknown) (no date) (unknown) (unknown) Exam (units unknown) (unknown) (unknown) (no date) (unknown) (unknown) General: Well-developed well-nourished 58-year-old female in no acute distress, (units unknown) (unknown) (unknown) (no date) (unknown) (unknown) HPI (units unknown) (unknown) (unknown) (no date) (unknown) (unknown) Height 152.4 cm (uni ts unknown) (unknown) (unknown) (no date) (unknown) (unknown) Hives (units unknown) (unknown) (unknown) (no date) (unknown) (unknown) Immunizations (units unknown) (unknown) (unknown) (no date) (unknown) (unknown) Intake Note: (units unknown) (unknown) (unknown) (no date) (unknown) (unknown) Intake perform ed by: Shamar Mcqueen (units unknown) (unknown) (unknown) (no date) (unknown) (unknown) Intake (units unknown) (unknown) (unknown) (no date) (unknown) (unknown) Intake- Clinci al Staff (units unknown) (unknown) (unknown) (no date) (unknown) (unknown) Loc: [facility] (units unknown) (unknown) (unknown) (no date) (unknown) (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) 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) (unknown) (unknown) (no date) (unknown) (unknown) Medications (units unknown) (unknown) (unknown) (no date) (unknown) (unknown) No Known Home Medications 03/22/23 [History Confirmed 03/22/23] (units unknown) (unknown) (unknown) (no date) (unknown) (unknown) Not VFC Eligib le 03/22/23 Private Funds (units unknown) (unknown) (unknown) (no date) (unknown) (unknown) Office Meds (units unknown) (unknown) (unknown) (no date) (unknown) (unknown) Office Procedu re Documentation entered by Shamar Mcqueen MA 03/22/23 11:35: (units unknown) (unknown) (unknown) (no date) (unknown) (unknown) Office Procedu re Documentation entered by Shamar Mcqueen MA 03/22/23 11:36: (units unknown) (unknown) (unknown) (no date) (unknown) (unknown) Oxygen Deliver y Method room air (units unknown) (unknown) (unknown) (no date) (unknown) (unknown) PFSH (units unknown) (unknown) (unknown) (no date) (unknown) (unknown) Patient is a 58-year-old female presenting for evaluation of a rash over her (units unknown) (unknown) (unknown) (no date) (unknown) (unknown) Patient: Delphine Loco MR#: [id number] (units unknown) (unknown) (unknown) (no date) (unknown) (unknown) Performing Provider: Flora Bae PA-C (units unknown) (unknown) (unknown) (no date) (unknown) (unknown) Plan (units unknown) (unknown) (unknown) (no date) (unknown) (unknown) Position Sitting (un its unknown) (unknown) (unknown) (no date) (unknown) (unknown) Pt presents wi th a rash on chest for a week. Started off as a grease burn. (units unknown) (unknown) (unknown) (no date) (unknown) (unknown) Pulse 81 (units unknown) (unknown) (unknown) (no date) (unknown) (unknown) Pulse Oximetry (%) 99 (units unknown) (unknown) (unknown) (no date) (unknown) (unknown) Pulse Source Monitor (units unknown) (unknown) (unknown) (no date) (unknown) (unknown) Qualifiers: (units unknown) (unknown) (unknown) (no date) (unknown) (unknown) ROS Narrative (units unknown) (unknown) (unknown) (no date) (unknown) (unknown) ROS Narrative: (unit s unknown) (unknown) (unknown) (no date) (unknown) (unknown) ROS (units unknown) (unknown) (unknown) (no date) (unknown) (unknown) Rash (units unknown) (unknown) (unknown) (no date) (unknown) (unknown) Reason For Visit (un its unknown) (unknown) (unknown) (no date) (unknown) (unknown) She notes that it is around the burn area where the ointment was applied and (units unknown) (unknown) (unknown) (no date) (unknown) (unknown) She says the r johann still seems to be getting worse. She describes it as itchy. (units unknown) (unknown) (unknown) (no date) (unknown) (unknown) Signed By: <Electronically signed by Flora Bae> (units unknown) (unknown) (unknown) (no date) (unknown) (unknown) Signed with Tiffany (units unknown) (unknown) (unknown) (no date) (unknown) (unknown) Skin: 8 in katlyn g burn across anterior chest which appears dull red in color and (units unknown) (unknown) (unknown) (no date) (unknown) (unknown) Smoking Status : Former smoker (units unknown) (unknown) (unknown) (no date) (unknown) (unknown) Sulfa (Sulfona mide Antibiotics) Allergy (Mild, Verified 03/22/23 11:12) (units unknown) (unknown) (unknown) (no date) (unknown) (unknown) Temp 98.5 F (units unknown) (unknown) (unknown) (no date) (unknown) (unknown) Temp Source Skin (un its unknown) (unknown) (unknown) (no date) (unknown) (unknown) This note may have been all or partially generated using voice recognition (units unknown) (unknown) (unknown) (no date) (unknown) (unknown) Tobacco + Subs tance Use (units unknown) (unknown) (unknown) (no date) (unknown) (unknown) Tobacco Status (unit s unknown) (unknown) (unknown) (no date) (unknown) (unknown) VIS Given Date VIS Provided VIS Publication Date (units unknown) (unknown) (unknown) (no date) (unknown) (unknown) Visit Reasons: rash burn on chest x1wk (units unknown) (unknown) (unknown) (no date) (unknown) (unknown) Vitals (units unknown) (unknown) (unknown) (no date) (unknown) (unknown) Walk In Clinic Visit (units unknown) (unknown) (unknown) (no date) (unknown) (unknown) Weight 5.075 kg (uni ts unknown) (unknown) (unknown) (no date) (unknown) (unknown) afterwards. Sh sherley says that her last application of coconut oil was on Tuesday. (units unknown) (unknown) (unknown) (no date) (unknown) (unknown) agents (units unknown) (unknown) (unknown) (no date) (unknown) (unknown) and wash gentl y with soap and water. She may apply Vaseline to the wound to (units unknown) (unknown) (unknown) (no date) (unknown) (unknown) anterior chest for the last 6 days. She sustained a burn from grease on her (units unknown) (unknown) (unknown) (no date) (unknown) (unknown) applied coconu t oil to her chest 6 days ago and noticed a rash occurred (units unknown) (unknown) (unknown) (no date) (unknown) (unknown) cautioned her to avoid exposure to this trigger again. Discussed with patient (units unknown) (unknown) (unknown) (no date) (unknown) (unknown) chest roughly 10 days ago. She states that seems to be healing well, but she (units unknown) (unknown) (unknown) (no date) (unknown) (unknown) codeine Allerg y (Mild, Verified 03/22/23 11:12) (units unknown) (unknown) (unknown) (no date) (unknown) (unknown) consistent wit h contact dermatitis. No induration, fluctuance or exudate noted. (units unknown) (unknown) (unknown) (no date) (unknown) (unknown) dermatitis. Sh e is been treated today with 10 mg of Decadron by mouth. I also (units unknown) (unknown) (unknown) (no date) (unknown) (unknown) dexamethasone sodium phosphate (units unknown) (unknown) (unknown) (no date) (unknown) (unknown) dry to the [facility]. Surrounding the burn are interrupted erythematous bumps (units unknown) (unknown) (unknown) (no date) (unknown) (unknown) further treatm ent and evaluation. She is agreeable to plan of care. We have (units unknown) (unknown) (unknown) (no date) (unknown) (unknown) have occurred. If there are any questions, please contact the Medical Records (units unknown) (unknown) (unknown) (no date) (unknown) (unknown) help it contin ued to heal better. We discussed signs of infection including (units unknown) (unknown) (unknown) (no date) (unknown) (unknown) may occur. Occasional wrong-word or 'sound-alike' substitutions may have (units unknown) (unknown) (unknown) (no date) (unknown) (unknown) occurred due t o the inherent limitations of voice recognition software. Please (units unknown) (unknown) (unknown) (no date) (unknown) (unknown) over her back. Her last tetanus was updated over 5 years ago. (units unknown) (unknown) (unknown) (no date) (unknown) (unknown) per HPI (units unknown) (unknown) (unknown) (no date) (unknown) (unknown) read the note carefully and recognize, using context, where these substitutions (units unknown) (unknown) (unknown) (no date) (unknown) (unknown) recommend that she take rxii-rpb-nlqqqwx allergy medicine and Benadryl at night (units unknown) (unknown) (unknown) (no date) (unknown) (unknown) seems to be spreading down her superior abdomen. She denies any involvement (units unknown) (unknown) (unknown) (no date) (unknown) (unknown) software. 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 This steroid should have affect for the next 3 days. I (units unknown) (unknown) (unknown) (no date) (unknown) (unknown) trigger Qualif ied Code(s): L23.89 - Allergic contact dermatitis due to other (units unknown) (unknown) (unknown) (no date) (unknown) (unknown) updated her te tanus today. (units unknown) (unknown) Social History date description facility 2023-03-22 00:00 Ex-smoker (finding) [facility] Vital Signs date measurement value units 2023-03-22 00:00 BMI 2.2 kg/m2 2023-03-22 00:00 BP_diastolic 90 mmHg 2023-03-22 00:00 BP_systolic 142 mmHg 2023-03-22 00:00 heart_rate 81 /min 2023-03-22 00:00 height_metric 152.4 cm 2023-03-22 00:00 height_standard 60 in 2023-03-22 00:00 o2_saturation 99 % 2023-03-22 00:00 temperature_metric 36.94 C 2023-03-22 00:00 temperature_standard 98.5 F 2023-03-22 00:00 weight_metric 5.07 kg 2023-03-22 00:00 weight_standard 11.18 lb
== END 2023-03-28 11:44 | disposition home or self-care (01) ==
LOC: ED 11:07
DX: L25.1 Unspecified contact dermatitis due to drugs in contact with skin (principal)
CPT/HCPCS: 99281; 99283

== ENCOUNTER 2024-03-14 10:09 | Outpatient (CLI) | payer OTHER ==
[2024-03-14 10:20] LABS: BASOPHILS # (AUTO) 0.1 10^3/uL (0.0-0.1); BASOPHILS % (AUTO) 0.9 %; EOSINOPHILS # (AUTO) 0.2 10^3/uL (0.0-0.7); EOSINOPHILS % (AUTO) 4.3 %; HCT - HEMATOCRIT 43.3 % (37.0-47.0); HGB - HEMOGLOBIN 14.3 g/dL (12.0-16.0); LYMPHOCYTES # (AUTO) 1.5 10^3/uL (1.5-3.5); LYMPHOCYTES % (AUTO) 27.3 %; MEAN CORPUSCULAR HEMOGLOBIN 30.2 pg (27.0-31.0); MEAN CORPUSCULAR VOLUME 91.5 fL (81.0-99.0); MEAN PLATELET VOLUME 9.6 fL (7.9-10.8); MONOCYTES # (AUTO) 0.7 10^3/uL (0.0-1.0); MONOCYTES % (AUTO) 12.4 %; NEUTROPHILS # (AUTO) 2.9 10^3/uL (1.5-6.6); NEUTROPHILS % (AUTO) 54.7 %; PLT - PLATELET COUNT 147 10^3/uL (130-450); RED BLOOD COUNT 4.73 10^6/uL (4.20-5.40); RED CELL DISTRIBUTION WIDTH 12.9 % (12.0-15.0); WHITE BLOOD COUNT 5.3 x10^3/uL (4.8-10.8)
[2024-03-14 10:34] LABS: ALBUMIN 4.4 g/dL (3.2-5.5); ALBUMIN/GLOBULIN RATIO 1.6 (1.0-2.2); ALKALINE PHOSPHATASE 105 IU/L (42-121); ALT ALANINE AMINOTRANSFERASE 59 IU/L (10-60); AST ASPARTATE AMINOTRANSFERASE 35 IU/L (10-42); BILIRUBIN,TOTAL 0.6 mg/dL (0.2-1.0); BUN - BLOOD UREA NITROGEN 11 mg/dL (6-20); CALCIUM 9.3 mg/dL (8.5-10.3); CARBON DIOXIDE - CO2 35 mmol/L (21-32); CHLORIDE 89 mmol/L (101-111); CHOL/HDL RATIO 3.3 (<4.4); CHOLESTEROL 213 mg/dL; CREATININE 0.5 mg/dL (0.6-1.3); GFR - MDRD 128 (>89); GLUCOSE 346 mg/dL (74-104); HDL CHOLESTEROL 65 mg/dL; LDL CHOLESTEROL,CALCULATED 123 mg/dL; LDL/HDL RATIO 1.9 (<4.4); POTASSIUM 3.9 mmol/L (3.5-4.5); SODIUM 131 mmol/L (135-145); TOTAL PROTEIN 7.2 g/dL (6.4-8.9); TRIGLYCERIDES 127 mg/dL (48-352); VLDL CHOLESTEROL 25 mg/dL
[2024-03-14 10:49] LABS: THYROID STIMULATING HORMONE 2.93 uIU/mL (0.34-5.60)
== END 2024-03-14 10:10 | disposition home or self-care (01) ==
LOC: LAB 10:09
PROVIDERS: ATTEND Nurse Practitioner Family
DX: F50.2 Bulimia nervosa (principal); F50.00 Anorexia nervosa, unspecified; R05.3 Chronic cough
CPT/HCPCS: 36415; 80050; 80061; 83721

== ENCOUNTER 2024-03-20 15:02 | Outpatient (CLI) | payer OTHER ==
--- NOTE | 2024-03-21 06:34 | XRAY Report ---
PROCEDURE: Chest 2V INDICATIONS: CHRONIC COUGH TECHNIQUE: 2 views of the chest were obtained. COMPARISON: None. FINDINGS: Surgical changes and devices: None. Lungs and pleura: Mild chronic interstitial changes appear no focal infiltrate. No pneumothorax. Mediastinum: Mediastinal contours appear normal. Heart size is normal. Bones and chest wall: No suspicious bony lesions. Overlying soft tissues appear unremarkable. IMPRESSION: Chronic interstitial changes without focal infiltrate. Reviewed by: Barry Mayo MD on 03/21/2024 5:33 AM DONATO Approved by: Barry Mayo MD on 03/21/2024 5:33 AM DONATO Station ID: [id number]
== END 2024-03-20 15:03 | disposition home or self-care (01) ==
LOC: DI 15:02
PROVIDERS: ATTEND Nurse Practitioner Family
DX: R05.3 Chronic cough (principal)

== ENCOUNTER 2024-04-03 12:41 | Outpatient (CLI) | payer OTHER ==
--- NOTE | 2024-04-04 09:27 | Mammography Report ---
BILATERAL DIGITAL SCREENING MAMMOGRAM 3D/2D: 04/03/2024 CLINICAL: Routine screening. Comparison is made to exam dated: 07/07/2015 mammogram - [facility]. There are scattered areas of fibroglandular density in both breasts (category b / 25%-50% glandular t issue). No significant masses, calcifications, or other findings are seen in either breast. There has been no significant interval change. IMPRESSION: NEGATIVE There is no mammographic evidence of malignancy. A 1 year screening mammogram is recommended. Based on the Tyrer Cuzick model (a risk assessment model) the patient's lifetime risk is 5.6% and her 10 year risk is 1.9%. According to the ACR, ACS, and NCCN guidelines, an annual breast MRI exam maye g with mammogram is recommended if the patient's lifetime risk is 20% or greater. This exam was interpreted at Station ID: [id number]. NOTE: For mammograms, a report in lay terms will be sent to the patient. Approximately 15% of breast malignancies will not be visualized mammographically. In the management of a palpable breast mass, a negative mammogram must not discourage biopsy of a clinically suspicious lesion. Electronically Signed By: Pilo Interiano M.D. aty/penrad:04/03/2024 17:09:56 ACR BI-RADS Category 1: Negative 3341F PARENCHYMAL PATTERN: (A) - The breast(s) demonstrate(s) scattered fibroglandular densities. BI-RADS CATEGORY: (1) - 1 RECOMMENDATION: (ANNUAL) - Recommend routine annual screening mammography. [id number] 1 year screening LATERALITY: (B)
== END 2024-04-03 12:42 | disposition home or self-care (01) ==
LOC: DI 12:41
PROVIDERS: ATTEND Nurse Practitioner Family
DX: Z12.31 Encounter for screening mammogram for malignant neoplasm of breast (principal); R92.323 Mammographic fibroglandular density, bilateral breasts

== ENCOUNTER 2024-04-20 07:32 | Emergency (ER) | payer OTHER ==
[2024-04-20 08:25] LABS: BASOPHILS # (AUTO) 0.1 10^3/uL (0.0-0.1); BASOPHILS % (AUTO) 1.1 %; EOSINOPHILS # (AUTO) 0.2 10^3/uL (0.0-0.7); EOSINOPHILS % (AUTO) 2.9 %; HCT - HEMATOCRIT 43.5 % (37.0-47.0); HGB - HEMOGLOBIN 14.5 g/dL (12.0-16.0); LYMPHOCYTES # (AUTO) 2.1 10^3/uL (1.5-3.5); LYMPHOCYTES % (AUTO) 28.5 %; MEAN CORPUSCULAR HEMOGLOBIN 30.2 pg (27.0-31.0); MEAN CORPUSCULAR HGB CONC 33.3 g/dL (32.0-36.0); MEAN CORPUSCULAR VOLUME 90.6 fL (81.0-99.0); MEAN PLATELET VOLUME 10.5 fL (7.9-10.8); MONOCYTES # (AUTO) 0.6 10^3/uL (0.0-1.0); MONOCYTES % (AUTO) 7.7 %; NEUTROPHILS # (AUTO) 4.3 10^3/uL (1.5-6.6); NEUTROPHILS % (AUTO) 59.5 %; PLT - PLATELET COUNT 214 10^3/uL (130-450); RED CELL DISTRIBUTION WIDTH 12.4 % (12.0-15.0); WHITE BLOOD COUNT 7.2 x10^3/uL (4.8-10.8)
--- NOTE | 2024-04-20 08:36 | XRAY Report ---
PROCEDURE: Chest 1V INDICATIONS: Chest Pain TECHNIQUE: One view of the chest was acquired. COMPARISON: 03/20/2024. FINDINGS: Surgical changes and devices: None. Lungs and pleura: No pleural effusions or pneumothorax. Lungs are clear. Mediastinum: Mediastinal contours appear normal. Heart size is normal. Bones and chest wall: No suspicious bony lesions. Overlying soft tissues appear unremarkable. IMPRESSION: No acute cardiopulmonary process. Reviewed by: Po Ng MD on 04/20/2024 8:34 AM PDT Approved by: Po Ng MD on 04/20/2024 8:34 AM PDT Station ID: [id number]
[2024-04-20 08:39] LABS: ALBUMIN 4.4 g/dL (3.2-5.5); ALBUMIN/GLOBULIN RATIO 1.4 (1.0-2.2); ALKALINE PHOSPHATASE 101 IU/L (42-121); ALT ALANINE AMINOTRANSFERASE 53 IU/L (10-60); AST ASPARTATE AMINOTRANSFERASE 44 IU/L (10-42); BILIRUBIN,TOTAL 0.6 mg/dL (0.2-1.0); BUN - BLOOD UREA NITROGEN 7 mg/dL (6-20); CALCIUM 8.9 mg/dL (8.5-10.3); CARBON DIOXIDE - CO2 29 mmol/L (21-32); CHLORIDE 98 mmol/L (101-111); CREATININE 0.5 mg/dL (0.6-1.3); GFR - MDRD 127 (>89); GLUCOSE 189 mg/dL (74-104); LIPASE < 10 U/L (11-82); MAGNESIUM 1.3 mg/dL (1.7-2.3); POTASSIUM 3.5 mmol/L (3.5-4.5); SODIUM 138 mmol/L (135-145); TOTAL PROTEIN 7.6 g/dL (6.4-8.9)
[2024-04-20 08:42] LABS: TROPONIN I HIGH SENSITIVITY 4.6 ng/L (2.3-14.8)
[2024-04-20] MEDS: MAGNESIUM SULFATE 2 GRAM 2 GM/50 ML BAG IV ONE (09:21)
[2024-04-20] MEDS: POTASSIUM BICARB 25 MEQ TABLET PO STA (09:21)
[2024-04-20] MEDS: SODIUM CHLORIDE 0.9% 500 ML IV STA (09:22)
--- NOTE | 2024-04-20 10:00 | ED Physician Documentation ---
PD HPI CHEST PAIN - Stated complaint Stated Complaint: CP/NAUSEA/BODY NUMB - Chief complaint Chief Complaint: Cardiac - History obtained from History obtained from: Patient, EMS - History of Present Illness Timing - onset: How many hours ago (1) Timing - onset during: Rest (was getting up out of bed when noted pressure feeling in chest and feeling dyspnea. Subsequently noted numbness in arms and legs and face.) Timing - details: Abrupt onset, Still present (the numbness is lessened as has the tightness in chest.) Quality: Pressure, Tightness, Aching Location: Substernal Radiation: No: Neck, Back Associated symptoms: Shortness of air, Nausea. No: Feeling faint / dizzy, Palpitations Similar symptoms before: Has not had sx before Recently seen: Not recently seen Review of Systems Constitutional: denies: Fever, Chills, Myalgias Nose: denies: Rhinorrhea / runny nose, Congestion Throat: denies: Sore throat Cardiac: reports: Chest pain / pressure. denies: Palpitations, Pedal edema, Calf pain Respiratory: reports: Dyspnea. denies: Cough, Wheezing Musculoskeletal: denies: Extremity swelling Neurologic: denies: Near syncope, Syncope PD PAST MEDICAL HISTORY - Past Medical History Past Medical History: Yes Cardiovascular: None Respiratory: None, Other (she reports having a scaring on prior CXR sand has pulmonary appt in few weeks for ?bronchoscopy about it. 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 : None HEENT: None Psych: Eating disorder Musculoskeletal: Osteoarthritis Derm: None - Past Surgical History Past Surgical History: Yes Ortho: Arthroscopic surgery /BELT AND LINK ASSEMBLY SUPERVISOR: Tubal ligation, Other - Present Medications Home Medications: Ambulatory Orders Medication Instructions Recorded Confirmed Multivitamin [Theragran] 1 tab PO DAILY 09/15/19 03/28/23 Betamethasone/Propylene Glyc 10 gm TP TID #200 gm 03/28/23 [Betamethasone Dp Aug 0.05% Oin] - Allergies Allergies/Adverse Reactions: Allergies Allergy/AdvReac Type Severity Reaction Status Date / Time Sulfa (Sulfonamide Allergy Rash Verified 04/20/24 07:45 Antibiotics) codeine AdvReac Emesis Verified 04/20/24 07:45 - Social History Does the pt smoke?: No Smoking Status: Never smoker Does the pt drink ETOH?: Yes Does the pt have substance abuse?: Yes - Immunizations Immunizations are current?: Yes - POLST Patient has POLST: No PD ED PE NORMAL - Vitals Vital signs reviewed: Yes - General General: Alert and oriented X 3, No acute distress, Well developed/nourished - HEENT HEENT: Pharynx benign - Neck Neck: Supple, no meningeal sign, No adenopathy - Cardiac Cardiac: RRR, No murmur - Respiratory Respiratory: No respiratory distress, Clear bilaterally - Abdomen Abdomen: Soft, Non tender, Non distended - Derm Derm: Normal color, Warm and dry Results - Vitals Vitals: Vital Signs - 24 hr 04/20/24 04/20/24 07:43 10:52 Temperature 36.6 C Heart Rate 86 85 Respiratory 18 20 Rate Blood Pressure 146/92 H 146/90 H O2 Saturation 98 97 Oxygen O2 Source Room air - EKG (time done) 07:43 EKG releavant findings:: EKG personally interpreted by author of this note. Relevant findings are: Rate: Rate (enter#) (88) Rhythm: NSR [place]: Normal Intervals: Normal MD QRS: Normal Ischemia: Normal ST segments. No: ST elevation c/w ischemia, ST depression - Labs Labs: Laboratory Tests 04/20/24 04/20/24 07:40 07:40 WBC 7.2 RBC 4.80 Hgb 14.5 Hct 43.5 MCV 90.6 MCH 30.2 MCHC 33.3 RDW 12.4 Plt Count 214 MPV 10.5 Neut # (Auto) 4.3 Lymph # (Auto) 2.1 [place] # (Auto) 0.6 Eos # (Auto) 0.2 Baso # (Auto) 0.1 Absolute Nucleated RBC 0.00 Nucleated RBC % 0.0 Sodium 138 Potassium 3.5 Chloride 98 L Carbon Dioxide 29 Anion Gap 11.0 BUN 7 Creatinine 0.5 L Estimated GFR (MDRD) 127 Glucose 189 H Calcium 8.9 Magnesium 1.3 L Total Bilirubin 0.6 AST 44 H ALT 53 Alkaline Phosphatase 101 Troponin I High Sens 4.6 Total Protein 7.6 Albumin 4.4 Globulin 3.2 Albumin/Globulin Ratio 1.4 Lipase < 10 L - Rads (name of study) chest xray Relevant Findings:: Prelim report reviewed (no acute process), EMP independent interpretation of test PD Medical Decision Making - ED course Complexity details: reviewed results (potassium and magnesium are low. The numbness could be enhanced by those, but initially triggered by hypervent. Normal ECG and CXR with neg trop. ), considered differential (her symptoms sound like possible anxiety, with hhyperventilation. She is breathing okay here but has faint residual numbness symtpoms and chest tightness. No hypoxia. Normal breath sounds. ), d/w patient Departure - Departure Disposition: 01 Home, Self Care Clinical Impression: Numbness and tingling, Chest pain, Hypomagnesemia, Hypokalemia Condition: Stable Record reviewed to determine appropriate education?: Yes Instructions: ED Chest Pain Atypical Unkn Cause Follow-Up: Brittany Snyder FNP [Primary Care Provider] - Comments: Your EKG, chest x-ray, blood tests are normal. The x-ray report actually did not comment on any scar tissue per se. However follow-up with underwriting intern as planned. No signs of heart attack, heart failure, pneumonia, fluid in the lungs. Your blood count and blood sugar and kidney function are good. Regarding your electrolytes, there was some low potassium and low magnesium. It is unclear the cause of the chest discomfort. Consider causes that would not show on the test such as reflux or heartburn, musculoskeletal, panic attack among other things. However the numbness that you had on the arms legs and around the face may have been related to heavier breathing and combined with the electrolyte abnormalities. I would suggest some magnesium and potassium supplements dietarily or [id number] tablets particularly next week or 2. Follow-up with your primary care this afternoon as planned. Return if needed. Forms: PCP List Discharge Date/Time: 04/20/24 10:53
[2024-04-20] MEDS: MAG HYDROX/AL HYDROX/SIMETH 30 ML UDC PO STA (10:06)
[2024-04-20] MEDS: KETOROLAC 15 MG/ML VIAL IVP STA (10:40)
[2024-04-20 10:58] VITALS: BP 146/90; O2SAT 97
== END 2024-04-20 10:53 | disposition home or self-care (01) ==
LOC: ED 07:32
DX: R07.89 Other chest pain (principal); R20.2 Paresthesia of skin; E83.42 Hypomagnesemia; E87.6 Hypokalemia
CPT/HCPCS: 36415; 71045; 80053; 83690; 83735; 84484; 85025; 93005; 96365; 99284; A9270

== ENCOUNTER 2024-08-03 14:53 | Outpatient (CLI) | payer OTHER ==
--- NOTE | 2024-08-07 15:43 | XRAY Report ---
PROCEDURE: Chest 2V INDICATIONS: PNEUMONIA TECHNIQUE: 2 views of the chest were obtained. COMPARISON: 02/18/2014 FINDINGS: Surgical changes and devices: None. Lungs and pleura: No pleural effusions or pneumothorax. Lungs are clear. Mediastinum: Mediastinal contours appear normal. Heart size is normal. Bones and chest wall: No suspicious bony lesions. Overlying soft tissues appear unremarkable. IMPRESSION: Diffuse chronic interstitial changes. No focal infiltrate. Reviewed by: Barry Mayo MD on 08/07/2024 2:42 PM AKDT Approved by: Barry Mayo MD on 08/07/2024 2:42 PM AKDT Station ID: [id number]
== END 2024-08-03 14:54 | disposition home or self-care (01) ==
LOC: DI 14:53
PROVIDERS: ATTEND Nurse Practitioner Family
DX: J15.8 Pneumonia due to other specified bacteria (principal)

== ENCOUNTER 2024-08-11 12:39 | Outpatient (CLI) | payer OTHER | END 2024-08-11 23:59 | disposition critical access hospital (66) | LOC: EMS 12:39 | DX: R06.02 Shortness of breath (principal); R05.9 Cough, unspecified | CPT/HCPCS: A0425; A0427 ==

== ENCOUNTER 2024-08-11 12:49 | Emergency (ER) | payer OTHER ==
--- NOTE | 2024-08-11 12:57 | ED Physician Documentation ---
History of Present Illness - Stated complaint Stated Complaint: SOA - History obtained from History obtained from: Patient - Additonal information Additional information: 59-year-old woman quit smoking 13 years ago and quit drinking alcohol a few weeks ago. She has type 2 diabetes, she got sick earlier this month and went to [facility]. She was diagnosed with pneumonia and put on Omnicef. Reportedly also had a UTI at this time and was given some steroids to. She is still sick but got much worse this morning with shortness of breath and productive cough and feeling like she cannot swallow. She was started on a different antibiotic by her PCP 3 days ago and did a steroid inhaler as well. Denies pedal edema or calf pain. No chronic heart or lung problems. PD PAST MEDICAL HISTORY - Past Medical History Cardiovascular: None Respiratory: None, Other (she reports having a scaring on prior CXR sand has pulmonary appt in few weeks for ?bronchoscopy about it. 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 : None HEENT: None Psych: Eating disorder Musculoskeletal: Osteoarthritis Derm: None - Past Surgical History Past Surgical History: Yes Ortho: Arthroscopic surgery /FLANGING OPERATOR: Tubal ligation, Other - Present Medications Home Medications: Ambulatory Orders Medication Instructions Recorded Confirmed Multivitamin [Theragran] 1 tab PO DAILY 09/15/19 03/28/23 Betamethasone/Propylene Glyc 10 gm TP TID #200 gm 03/28/23 [Betamethasone Dp Aug 0.05% Oin] - Allergies Allergies/Adverse Reactions: Allergies Allergy/AdvReac Type Severity Reaction Status Date / Time Sulfa (Sulfonamide Allergy Rash Verified 08/11/24 13:02 Antibiotics) codeine AdvReac Emesis Verified 08/11/24 13:02 - Social History Does the pt smoke?: No Smoking Status: Former smoker Does the pt drink ETOH?: Yes Does the pt have substance abuse?: Yes - Immunizations Immunizations are current?: Yes - POLST Patient has POLST: No PD ED PE NORMAL - Vitals Vital signs reviewed: Yes - General General: Alert and oriented X 3, Other (Loud audible wheezing at the bedside with frequent cough and speaking in short sentences with some respiratory distress.) - Cardiac Cardiac: RRR, No murmur - Respiratory Respiratory: Other (Tachypneic and speaking in short sentences with rhonchi and wheezing throughout.) - Abdomen Abdomen: Normal bowel sounds, Soft, Non tender - Extremities Extremities: No edema, No calf tenderness / cord - Neuro Neuro: Alert and oriented X 3 Results - Vitals Vitals: Vital Signs - 24 hr 08/11/24 08/11/24 08/11/24 12:58 13:02 13:04 Temperature 36.3 C L Heart Rate 118 H 112 H 118 H Respiratory 32 H 16 22 Rate Blood Pressure 132/104 H 122/75 O2 Saturation 99 98 08/11/24 08/11/24 08/11/24 13:32 15:02 15:30 Temperature Heart Rate 88 85 86 Respiratory 18 16 20 Rate Blood Pressure 122/75 119/61 119/61 O2 Saturation 99 95 96 08/11/24 08/11/24 08/11/24 16:00 16:30 17:00 Temperature Heart Rate 81 69 80 Respiratory 15 18 19 Rate Blood Pressure 102/65 102/68 113/64 O2 Saturation 96 98 96 08/11/24 08/11/24 17:30 18:00 Temperature Heart Rate 83 81 Respiratory 22 20 Rate Blood Pressure 109/71 106/74 O2 Saturation 98 97 Oxygen O2 Source Room air - EKG (time done) 1256 EKG releavant findings:: EKG personally interpreted by author of this note. Relevant findings are: Rate: Rate (enter#) (103) Rhythm: Sinus tachycardia, LAE, AUDREY Hughes: Normal Intervals: Normal MA. No: Prolonged QT QRS: Normal Ischemia: Non specific changes - Labs Labs: Laboratory Tests 08/11/24 08/11/24 08/11/24 13:05 13:05 13:05 WBC 16.5 H RBC 4.63 Hgb 14.3 Hct 42.9 MCV 92.7 MCH 30.9 MCHC 33.3 RDW 12.2 Plt Count 283 MPV 10.1 Neut # (Auto) 11.5 H Lymph # (Auto) 3.0 [place] # (Auto) 1.3 H Eos # (Auto) 0.3 Baso # (Auto) 0.1 Absolute Nucleated RBC 0.00 Nucleated RBC % 0.0 D-Dimer VBG pH 7.398 VBG pCO2 35.2 L VBG pO2 22.3 L VBG HCO3 21.2 L VBG Total CO2 22.3 L VBG O2 Saturation 44.1 L VBG Base Excess -2.9 L Sodium 136 Potassium 3.7 Chloride 96 L Carbon Dioxide 26 Anion Gap 14.0 H BUN 6 Creatinine 0.5 L Estimated GFR (MDRD) 127 Glucose 245 H Calcium 9.7 Phosphorus 3.3 Magnesium 1.0 L* Total Bilirubin 0.5 AST 23 ALT 41 Alkaline Phosphatase 67 Troponin I High Sens Total Protein 7.1 Albumin 4.3 Globulin 2.8 Albumin/Globulin Ratio 1.5 Nasal Adenovirus (PCR) Nasal B. parapertussis DNA (PCR) Nasal Coronavir 229E PCR Nasal Coronavir HKU1 PCR Nasal Coronavir NL63 PCR Nasal Coronavir OC43 PCR Nasal Enterovir/Rhinovir PCR Nasal Influenza B PCR Nasal Influenza A PCR Nasal Parainfluen 1 PCR Nasal Parainfluen 2 PCR Nasal Parainfluen 3 PCR Nasal Parainfluen 4 PCR Nasal RSV (PCR) Nasal B.pertussis DNA PCR Nasal C.pneumoniae (PCR) Christian Human Metapneumo PCR Nasal M.pneumoniae (PCR) Nasal SARS-CoV-2 (PCR) 08/11/24 08/11/24 08/11/24 13:05 13:25 14:39 WBC RBC Hgb Hct MCV MCH MCHC RDW Plt Count MPV Neut # (Auto) Lymph # (Auto) [place] # (Auto) Eos # (Auto) Baso # (Auto) Absolute Nucleated RBC Nucleated RBC % D-Dimer 283.1 H VBG pH VBG pCO2 VBG pO2 VBG HCO3 VBG Total CO2 VBG O2 Saturation VBG Base Excess Sodium Potassium Chloride Carbon Dioxide Anion Gap BUN Creatinine Estimated GFR (MDRD) Glucose Calcium Phosphorus Magnesium Total Bilirubin AST ALT Alkaline Phosphatase Troponin I High Sens 8.5 Total Protein Albumin Globulin Albumin/Globulin Ratio Nasal Adenovirus (PCR) NOT DETECTED Nasal B. parapertussis DNA (PCR) NOT DETECTED Nasal Coronavir 229E PCR NOT DETECTED Nasal Coronavir HKU1 PCR NOT DETECTED Nasal Coronavir NL63 PCR NOT DETECTED Nasal Coronavir OC43 PCR NOT DETECTED Nasal Enterovir/Rhinovir PCR NOT DETECTED Nasal Influenza B PCR NOT DETECTED Nasal Influenza A PCR NOT DETECTED Nasal Parainfluen 1 PCR NOT DETECTED Nasal Parainfluen 2 PCR NOT DETECTED Nasal Parainfluen 3 PCR NOT DETECTED Nasal Parainfluen 4 PCR NOT DETECTED Nasal RSV (PCR) NOT DETECTED Nasal B.pertussis DNA PCR NOT DETECTED Nasal C.pneumoniae (PCR) NOT DETECTED Christian Human Metapneumo PCR NOT DETECTED Nasal M.pneumoniae (PCR) NOT DETECTED Nasal SARS-CoV-2 (PCR) NOT DETECTED - Rads (name of study) CTPA- Mediastinal mass causing mass effect on the trachea and subsegmental PEs Relevant Findings:: Final report received, EMP independent interpretation of test PD Medical Decision Making - ED course ED course: She presents with some respiratory distress, and rhonchorous and wheezy lungs. Sounded more like a bronchitis or COPD exacerbation than anything but concerning the she said she was having trouble eating and drinking feeling like the food would not go down. Workup was notable for leukocytosis, relatively unremarkable venous gas, significant hypomagnesemia and mild hyperglycemia with known diabetes. CT demonstrating a mediastinal mass with possible right lower lobe PE. PE does not quite fit the clinical picture so we will screen for a D-dimer and start anticoagulation if positive. Case discussed with Dr. Ruiz, pulmonology at [facility] at 3:05 PM who agrees with transfer and defers to the hospitalist for admit but he is available for bronchoscopy. Accepted by the hospitalist to [facility] @[phone] Subsequently the bottom turner at [facility] reviewed the case more and felt like she was actually to acute and complex to go to [facility] and subsequently they rerouted her wanting her to go to [facility]. I discussed the case by phone with their bottom turner, Dr. Geoff Meyers at 4:26 PM and they will get me a hospitalist at [facility] now. Accepted by the hospitalist [facility] 5:10 PM. 6:49 PM still waiting for a bed at [facility]. Departure - Departure Disposition: 02 Transfer Acute Care Hosp Clinical Impression: Hypomagnesemia, Mediastinal mass Dyspnea Qualifiers: Dyspnea type: shortness of breath Qualified Code(s): R06.02 - Shortness of breath; R06.00 - Dyspnea, unspecified; R06.01 - Orthopnea Pulmonary embolism Qualifiers: Pulmonary embolism type: single subsegmental (without acute cor pulmonale) Qualified Code(s): I26.93 - Single subsegmental pulmonary embolism without acute cor pulmonale Condition: Serious
[2024-08-11] MEDS: ALBUTEROL NEB 2.5 MG/3 ML INH STA ×2 (13:04→18:53)
[2024-08-11] MEDS: DEXAMETHASONE 10 MG/ML VIAL IVP STA (13:06)
[2024-08-11 13:12] LABS: BASOPHILS # (AUTO) 0.1 10^3/uL (0.0-0.1); BASOPHILS % (AUTO) 0.8 %; EOSINOPHILS # (AUTO) 0.3 10^3/uL (0.0-0.7); EOSINOPHILS % (AUTO) 2.1 %; HCT - HEMATOCRIT 42.9 % (37.0-47.0); HGB - HEMOGLOBIN 14.3 g/dL (12.0-16.0); LYMPHOCYTES % (AUTO) 18.4 %; MEAN CORPUSCULAR HEMOGLOBIN 30.9 pg (27.0-31.0); MEAN CORPUSCULAR HGB CONC 33.3 g/dL (32.0-36.0); MEAN CORPUSCULAR VOLUME 92.7 fL (81.0-99.0); MEAN PLATELET VOLUME 10.1 fL (7.9-10.8); MONOCYTES # (AUTO) 1.3 10^3/uL (0.0-1.0); MONOCYTES % (AUTO) 8.1 %; NEUTROPHILS # (AUTO) 11.5 10^3/uL (1.5-6.6); NEUTROPHILS % (AUTO) 69.7 %; PLT - PLATELET COUNT 283 10^3/uL (130-450); RED BLOOD COUNT 4.63 10^6/uL (4.20-5.40); RED CELL DISTRIBUTION WIDTH 12.2 % (12.0-15.0); WHITE BLOOD COUNT 16.5 x10^3/uL (4.8-10.8)
[2024-08-11 13:15] LABS: VBG PCO2 35.2 mmHg (41-51); VBG PH 7.398 (7.31-7.41)
[2024-08-11 13:16] LABS: VBG BASE EXCESS -2.9 mmol/L (-2 - +2); VBG HCO3 21.2 mmol/L (23-28); VBG OXYGEN SATURATION 44.1 % (60-80); VBG PO2 22.3 mmHg (25-47); VBG TOTAL CO2 22.3 mmol/L (24-29)
[2024-08-11 13:33] LABS: ALBUMIN 4.3 g/dL (3.2-5.5); ALBUMIN/GLOBULIN RATIO 1.5 (1.0-2.2); BILIRUBIN,TOTAL 0.5 mg/dL (0.2-1.0); CALCIUM 9.7 mg/dL (8.5-10.3); CREATININE 0.5 mg/dL (0.6-1.3); PHOSPHORUS 3.3 mg/dL (2.5-5.0); POTASSIUM 3.7 mmol/L (3.5-4.5); TOTAL PROTEIN 7.1 g/dL (6.4-8.9)
[2024-08-11] MEDS ORDERED: iohexoL-300 100 ML VIAL ONE (13:36)
[2024-08-11] MEDS: MAGNESIUM SULFATE 2 GRAM 2 GM/50 ML BAG IV ONE ×2 (14:09→15:24)
[2024-08-11] MEDS: HYDROmorphone 1 MG/ML CARPUJECT IVP STA (14:10)
--- NOTE | 2024-08-11 14:29 | CT Report ---
PROCEDURE: Angio Chest INDICATIONS: pe protocol for dyspnea CONTRAST: omni, 80 TECHNIQUE: After the administration of intravenous contrast, 2 mm axial images were acquired from the pulmonary apices to the posterior costophrenic angles during the arterial phase. In addition, 1 mm lung kernel and 5 mm soft tissue kernel reconstructions were performed. 3-dimensional coronal oblique maximum int ensity projection (MIP) reformats, 8 mm axial MIP, and 5 mm coronal and sagittal MPR reformats were t hen performed through the thorax. For radiation dose reduction, the following was used: automated exp osure control, adjustment of mA and/or kV according to patient size. COMPARISON: Radiograph August 03, 2024, April 20, 2024, April 03, 2024 FINDINGS: Image quality: Excellent. Large vessels: No filling defects within the opacified pulmonary arteries, accounting for motion and contrast timing. No evidence of acute aortic syndrome or aortic aneurysm. Small peripheral filling d efects within the vessels feeding the right inferior posterior lung. Lungs and pleura: No consolidation. No pleural effusions. No pneumothorax. Right lower lobe subpleur al nodule measuring 5.8 mm. Mediastinum: Heart size is normal. No pericardial effusion. No large vessel abnormality. 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 There is a polypoid extension of the mass into the trachea This mass measures 5.3 x 4.1 x 5.3 cm (TV, AP, CC) Chest wall and lower neck: The inferior lobe of the right thyroid abuts the superior mediastinal mass . No axillary or supraclavicular adenopathy by size. Bones: No aggressive osseous abnormality. Upper Abdomen: Unremarkable. IMPRESSION: Middle mediastinal mass causing mass effect upon the trachea with polypoid extension into the airway. Consider direct visualization with bronchoscopy. Subsegmental small pulmonary emboli feeding the right lower lobe. Dr. Sellers called and discussed the above findings the ordering provider at 1:30 PM [place] time 2023 Reviewed by: Masoud Sellers MD on 08/11/2024 1:27 PM AKDT Approved by: Masoud Sellers MD on 08/11/2024 1:27 PM AKDT Station ID: [id number]
[2024-08-11 15:19] LABS: CORONAVIRUS 229E-RESP PCR NOT DETECTED; CORONAVIRUS HKU1-RESP PCR NOT DETECTED; CORONAVIRUS NL63-RESP PCR NOT DETECTED; CORONAVIRUS OC43-RESP PCR NOT DETECTED; SARS-CoV-2 -RESP PCR PANEL NOT DETECTED
[2024-08-11 15:20] LABS: B. PARAPERTUSSIS- RESP PCR PAN NOT DETECTED; B. PERTUSSIS- RESP PCR PANEL NOT DETECTED; C. PNEUMONIAE- RESP PCR PANEL NOT DETECTED; HUMAN METAPNEUMOVIRUS NOT DETECTED; INFLUENZA A- RESP PCR PANEL NOT DETECTED; INFLUENZA B - RESP PCR PANEL NOT DETECTED; M. PNEUMONIAE- RESP PCR PANEL NOT DETECTED; PARAINFLUENZA VIRUS 1 NOT DETECTED; PARAINFLUENZA VIRUS 2 NOT DETECTED; PARAINFLUENZA VIRUS 3 NOT DETECTED; PARAINFLUENZA VIRUS 4 NOT DETECTED; RHINOVIRUS/ENTEROVIRUS NOT DETECTED; RSV- RESP PCR PANEL NOT DETECTED
[2024-08-11] MEDS: HEPARIN 25000UNITS/500ML (D5W) 25,000 UNIT/500 ML BAG IV SCH (15:59)
[2024-08-11] MEDS: iohexoL-300 100 ML VIAL IVP ONE (17:52)
[2024-08-12] MEDS: ACETAMINOPHEN 325 MG TABLET PO PRN (00:42)
[2024-08-12] MEDS: LIDOCAINE VISCOUS 2% 15 ML UDC MM STA ×2 (00:43→22:40)
--- NOTE | 2024-08-12 08:09 | ED Physician Documentation ---
ED Addendum - Addendum Addendum: 08/12/24 08:08 She is still pending bed at [facility]. She was seen and examined at the bedside. She is his she is really no better or worse than yesterday. She is trying to eat breakfast and her stepped out to get her a smoothie from the local coffee shop. 08/12/24 08:46 Called into the room at this time, patient was having a lot more pain in the chest after eating. She denied aspirating. She looked panicky but sats were good and lungs were actually much more clear than yesterday. She was tachycardic though, sinus tach about 130 on the monitor. I suspect she has increased pain as she was eating and it exacerbated the pain from the mass. Will medicate with Dilaudid and Zofran and reassess. 08/12/24 09:16 On recheck she is much better after the above treatments and we are still waiting for a bed at [facility]. I am told that Alma feels that she should go to [facility], and there may be a delay because of that. 08/12/24 16:05 It sounds like [facility] will not be able to take her today. I have asked the health batch unit treater to reach out to other facilities such as [facility]. Obviously were somewhat limited by her acuity given that even [facility] was unable to take her. 08/12/24 16:21 I presented the case to the transfer nurse at [facility] but she was pessimistic that they would have a bed availability. 08/12/24 18:27 I also [facility] at [facility] time and they will consider her case.
[2024-08-12] MEDS: ONDANSETRON 4 MG/2 ML VIAL IVP STA (08:55)
[2024-08-12] MEDS: HYDROmorphone 0.5 MG/0.5 ML SYRINGE IVP STA (08:55)
--- NOTE | 2024-08-12 11:52 | PHARMACY PROGRESS NOTE ---
- Best Possible Medication History Admit Date and Time: Processed by: Pharmacy (Medication Reconciliation completed by Inventory Control AnalystWilliam) Medications reviewed in ED?: Yes Medication History completed: Yes Patient Interview: Completed Secondary Source(s): Insurance records As the person ultimately responsible for medication therapy, providers are able to order a medication from an existing home medication list in [facility] via the "Reconcile Routine" prior to Confirmation of that medication by application support manager. Such practice is discouraged except when the physician, in their clinical judgment, deems that a medical need exists for a medication without regard to previous use.
[2024-08-12 16:29] LABS: BASOPHILS % (AUTO) 0.2 %; EOSINOPHILS # (AUTO) 0.1 10^3/uL (0.0-0.7); EOSINOPHILS % (AUTO) 0.4 %; HCT - HEMATOCRIT 41.2 % (37.0-47.0); HGB - HEMOGLOBIN 13.8 g/dL (12.0-16.0); LYMPHOCYTES # (AUTO) 1.9 10^3/uL (1.5-3.5); LYMPHOCYTES % (AUTO) 12.1 %; MEAN CORPUSCULAR HGB CONC 33.5 g/dL (32.0-36.0); MEAN CORPUSCULAR VOLUME 92.6 fL (81.0-99.0); MEAN PLATELET VOLUME 10.4 fL (7.9-10.8); MONOCYTES # (AUTO) 1.3 10^3/uL (0.0-1.0); MONOCYTES % (AUTO) 8.3 %; NEUTROPHILS # (AUTO) 12.1 10^3/uL (1.5-6.6); NEUTROPHILS % (AUTO) 78.2 %; PLT - PLATELET COUNT 265 10^3/uL (130-450); RED BLOOD COUNT 4.45 10^6/uL (4.20-5.40); RED CELL DISTRIBUTION WIDTH 12.3 % (12.0-15.0); WHITE BLOOD COUNT 15.5 x10^3/uL (4.8-10.8)
[2024-08-12] MEDS: ALBUTEROL NEB 2.5 MG/3 ML INH PRN (16:38)
[2024-08-12 16:43] LABS: ALBUMIN 4.1 g/dL (3.2-5.5); ALBUMIN/GLOBULIN RATIO 1.5 (1.0-2.2); BILIRUBIN,TOTAL 0.3 mg/dL (0.2-1.0); CALCIUM 9.3 mg/dL (8.5-10.3); CREATININE 0.5 mg/dL (0.6-1.3); MAGNESIUM 1.8 mg/dL (1.7-2.3); POTASSIUM 4.2 mmol/L (3.5-4.5); TOTAL PROTEIN 6.8 g/dL (6.4-8.9)
[2024-08-12] MEDS: HYDROmorphone 0.5 MG/0.5 ML SYRINGE IVP PRN (18:34)
[2024-08-12] MEDS ORDERED: DEXAMETHASONE 10 MG/ML VIAL ONE (22:20)
--- NOTE | 2024-08-12 22:20 | ED Physician Documentation ---
ED Addendum - Addendum Addendum: 08/12/24 22:19 Care of patient signed out to me by Dr. Rubio. At [address] Reynoso of CT surgery at [facility], who agreed patient needed to be transferred, for rigid bronchoscopy in conjunction with interventional pulmonology. Just after hanging up the phone I was informed by nursing staff that the patient had an abrupt change in respiratory status. On evaluation patient is stridorous, appeared to be having labored breathing. Patient was able to maintain saturations on room air. Racemic epinephrine nebulizer as well as additional Decadron ordered, respiratory therapy paged out for evaluation. Called anesthesiology electronic equipment installer to come in as backup in case of crash airway needs. BUSINESS TRAINER Candice called to bedside to assist in airway if needed. Patient and significant other did verbally consent to intubation if indicated. Recommended close discussion with ENT as well due to the size and location of the mass. ENT at paged. 2300 - Dr. Green reviewed images, felt that if patient was still having stridor she should be intubated, however it would be an extremely difficult tube, especially with the size and location of the mass as well as limited resources at a critical access hospital. She recommended we reconsult cardiothoracic surgery for additional guidance. Mentioned possibility of heliox, however we do not have this at our facility. 2303: Case re-discussed with Dr. Reynoso and Dr. Bruce via conference call. Dr. Reynoso states that this is likely a tumor and not an abscess, indicating slower growth. He agreed with racemic epinephrine administration, and states that if patient feeling better after steroids and racemic epi then he would recommend against intubation at this time, in favor of expedited transfer to [facility] for interventional pulmonology and CT surgery evaluation. If absolutely necessary then could attempt intubation with 6-0 ETT, however as last resort option. Recommended ICU for airway monitoring. MANDOLIN REPAIR PERSON advised to call [facility] for standby 2320 - Dr. Reid of ICU at accepted case for transfer to ICU. 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 CT surgery recommendations discussed with [facility]. 08/13/24 01:09
[2024-08-12] MEDS: DEXAMETHASONE 10 MG/ML VIAL IVP STA (22:24)
[2024-08-12] MEDS: RACEPINEPHRINE 2.25% NEB INH STA (22:33)
[2024-08-12] MEDS: SODIUM CHLORIDE FOR INHALATION 5 ML NEB INH STA (22:34)
[2024-08-12 23:30] VITALS: BP 105/66
[2024-08-12 23:40] VITALS: O2SAT 98
== END 2024-08-13 | disposition short-term general hospital (02) ==
LOC: EDUNIT# → ED 12:49
DX: E83.42 Hypomagnesemia (principal); R93.89 Abnormal findings on diagnostic imaging of other specified body structures; R06.02 Shortness of breath; I26.93 Single subsegmental thrombotic pulmonary embolism without acute cor pulmonale; Z87.891 Personal history of nicotine dependence; E11.9 Type 2 diabetes mellitus without complications
CPT/HCPCS: 36415; 71275; 80053; 82803; 83735; 84100; 84484; 85025; 85379; 85730; 87633; 93005; 94640; 94664; 96365; 96366; 96368; 96375; 96376; 99285; A9270; J1170; Q9967

== ENCOUNTER 2025-03-10 17:48 | Inpatient (IN) ==
--- OUTSIDE RECORDS SUMMARY | 2025-03-10 17:59 | EXTERNAL MEDICAL SUMMARY RPT | Continuity of Care Document ---
Author Organization [facility] Address [address] [place] [address] Phone Problems date description facility 2024-12-11 08:21 Malignant neoplasm of trachea [facility] 2024-12-11 08:21 Type 2 diabetes mellitus with h yperglycemia [facility] 2024-12-11 08:21 Urinary tract infection, site n ot specified [facility] 2024-12-11 08:21 shelter (current) use of insu swati [facility] 2024-12-11 08:27 Malignant neoplasm of trachea [facility] 2024-12-11 08:27 Type 2 diabetes mellitus with h yperglycemia [facility] 2024-12-11 08:27 Urinary tract infection, site n ot specified [facility] 2024-12-11 08:27 [employer] (current) use of insu sw[facility] 2024-12-11 09:49 Malignant neoplasm of trachea [facility] 2024-12-11 09:49 Type 2 diabetes mellitus with h yperglycemia [facility] 2024-12-11 09:49 Urinary tract infection, site n ot specified [facility] 2024-12-11 09:49 shelter (current) use of insu sw[facility] 2024-12-12 09:05 Malignant neoplasm of trachea [facility] 2024-12-12 09:05 Type 2 diabetes mellitus with h yperglycemia [facility] 2024-12-12 09:05 Urinary tract infection, site n ot specified [facility] 2024-12-12 09:05 shelter (current) use of insu sw[facility] 2024-12-12 10:50 Malignant neoplasm of trachea [facility] 2024-12-12 10:50 Type 2 diabetes mellitus with h yperglycemia [facility] 2024-12-12 10:50 Urinary tract infection, site n ot specified [facility] 2024-12-12 10:50 shelter (current) use of insu swati [facility] 2024-12-12 19:06 Malignant neoplasm of trachea [facility] 2024-12-12 19:06 Type 2 diabetes mellitus with h yperglycemia [facility] 2024-12-12 19:06 Urinary tract infection, site n ot specified [facility] 2024-12-12 19:06 [employer] (current) use of insu [employer] 2024-12-13 00:23 Bronchitis, not specified as ac crow or chronic [facility] 2024-12-13 07:54 Malignant neoplasm of trachea [facility] 2024-12-13 07:54 Type 2 diabetes mellitus with h yperglycemia [facility] 2024-12-13 07:54 Urinary tract infection, site n ot specified [facility] 2024-12-13 07:54 [employer] (current) use of insu [employer] 2024-12-13 08:11 Malignant neoplasm of trachea [facility] 2024-12-13 08:11 Type 2 diabetes mellitus with h yperglycemia [email or web address] 2024-12-13 08:11 Urinary tract infection, site n ot specified [facility] 2024-12-13 08:11 shelter (current) use of insu [employer] 2024-12-13 08:12 Malignant neoplasm of trachea [facility] 2024-12-13 08:12 Type 2 diabetes mellitus with h yperglycemia [facility] 2024-12-13 08:12 Urinary tract infection, site n ot specified [facility] 2024-12-13 08:12 [employer] (current) use of insu [employer] 2024-12-13 08:28 Malignant neoplasm of trachea [facility] 2024-12-13 08:28 Type 2 diabetes mellitus with h yperglycemia [facility] 2024-12-13 08:28 Urinary tract infection, site n ot specified [facility] 2024-12-13 08:28 [employer] (current) use of insu [employer] 2024-12-13 10:05 Malignant neoplasm of trachea [facility] 2024-12-13 10:05 Other specified counseling [employer] 2024-12-13 10:44 Bronchitis, not specified as ac crow or chronic [facility]-13 11:05 [facility] 2024-12-13 11:05 Other specified counseling [employer] [facility] [employer] 2024-12-14 10:39 Bronchitis, not specified as ac crow or chronic [facility] 2024-12-14 10:39 Other specified cough [facility] 2024-12-14 10:39 Pain, unspecified [facility] 2024-12-14 13:11 Malignant neoplasm of trachea [facility] 2024-12-14 13:11 Type 2 diabetes mellitus with h [facility]perglycemia [facility] 13:11 Urinary tract infection, site n ot specified [email or web address] 2024-12-14 13:11 [employer] (current) use of insu sw[facility] [email or web address] 2024-12-14 13:12 Malignant neoplasm of trachea [facility] 2024-12-14 13:12 Type 2 diabetes mellitus with h [facility]perglycemia [facility] 13:12 Urinary tract infection, site n ot specified [email or web address] 2024-12-14 13:12 [employer] (current) use of insu sw[facility] [email or web address] 2024-12-14 13:14 Malignant neoplasm of trachea [facility] 2024-12-14 13:14 Type 2 diabetes mellitus with h [facility]perglycemia [facility] 13:14 Urinary tract infection, site n ot specified [email or web address] 2024-12-14 13:14 shelter (current) use of insu sw[email or web address] 2024-12-14 13:17 Malignant neoplasm of trachea [facility] 2024-12-14 13:17 Type 2 diabetes mellitus with h yperglycemia [email or web address] 2024-12-14 13:17 Urinary tract infection, site n ot specified [email or web address] 2024-12-14 13:17 [employer] (current) use of insu [facility] 2024-12-14 13:19 Malignant neoplasm of trachea [facility] 2024-12-14 13:19 Type 2 diabetes mellitus with h yperglycemia [facility] 2024-12-14 13:19 Urinary tract infection, site n ot specified [email or web address] 2024-12-14 13:19 shelter (current) use of insu [employer] 2024-12-14 14:48 Malignant neoplasm of trachea [facility] 2024-12-14 14:48 Type 2 diabetes mellitus with h yperglycemia [facility] 2024-12-14 14:48 Bronchitis, not specified as ac crow or chronic [facility] 2024-12-14 14:48 Urinary tract infection, site n ot specified [facility] 2024-12-14 14:48 Other specified cough [facility]14 14:48 [facility], unspecified [facility] 2024-12-14 14:48 Other specified counseling [employer] 2024-12-14 14:48 shelter (current) use of insu [employer] 2024-12-15 00:00 Malignant neoplasm of trachea [facility] 2024-12-15 00:00 Type 2 diabetes mellitus withou t complications [facility] 2024-12-15 00:00 Unspecified severe protein-anastacio rajiv malnutrition [facility] 2024-12-15 00:00 Major depressive disorder, sing le episode, moderate [facility] 2024-12-15 00:00 Other specified diseases of upp er respiratory tract [facility] 2024-12-15 00:00 Bronchitis, not specified as ac crow or chronic [facility] 2024-12-15 00:00 Encounter for antineoplastic ch emotherapy [facility] 2024-12-15 00:00 Encounter for palliative care [employer] 2024-12-15 00:00 shelter (current) use of insu [employer] 2024-12-17 06:27 Malignant neoplasm of trachea [facility] 2024-12-17 06:27 Anemia, [facility] 2024-12-17 06:27 Neoplasm related pain (acute) ( chronic) [facility] 2024-12-17 06:27 Other pulmonary embolism withou t acute cor pul[facility]ale [facility] 06:27 Other specified diseases of upp er respiratory tract [facility] 2024-12-17 06:27 Encounter for genera l adult medical examination without abnormal findings [facility]17 06:27 Encounter [facility]ineoplastic ch emotherapy [facility]17 06:27 [facility]17 06:27 Gastrostomy status [facility] 2024-12-18 08:33 Malignant neoplasm of trachea [facility] 2024-12-18 08:33 Type 2 diabetes mellitus with h yperglycemia [facility] 08:33 Urinary tract infection, site n ot specified [facility] 2024-[facility]18 08:33 [employer] (current) use of insu [email or web address] 2024-12-18 08:38 Malignant neoplasm of trachea [facility] 2024-12-18 08:38 Type 2 diabetes mellitus with h yperglycemia [facility] 08:38 Urinary tract infection, site n ot specified [email or web address] 2024-12-18 08:38 shelter (current) use of insu [facility] [email or web address] 2024-12-18 09:32 Malignant neoplasm of trachea [facility] 2024-12-18 09:32 Type 2 diabetes mellitus with h yperglycemia [facility]18 09:32 Urinary tract infection, site n ot specified [email or web address] 2024-12-18 09:32 [employer] (current) use of insu [email or web address] 2024-12-18 10:22 Malignant neoplasm of trachea [facility] 2024-12-18 10:22 Type 2 diabetes mellitus with h yperglycemia [facility]18 10:22 Urinary tract infection, site n ot specified [email or web address] 2024-12-18 10:22 [employer] (current) use of insu swati [facility] 2024-12-19 14:57 Malignant neoplasm of trachea [facility] 2024-12-19 14:57 Gastrostomy status [facility] 2024-12-20 10:09 Malignant neoplasm of trachea [facility] 2024-12-20 10:09 Type 2 diabetes mellitus with h yperglycemia [facility] 2024-12-20 10:09 Urinary tract infection, site n ot specified [facility] 2024-12-20 10:09 [employer] (current) use of insu sw[facility] [email or web address] 2024-12-20 12:46 Malignant neoplasm of trachea [facility] 2024-12-20 12:46 Type 2 diabetes mellitus with h yperglycemia [facility]20 12:46 Urinary tract infection, site n ot specified [facility] 2024-12-20 12:46 [employer] (current) use of insu sw[facility] [email or web address] 2024-12-20 12:47 Malignant neoplasm of trachea [facility] 2024-12-20 12:47 Type 2 diabetes mellitus with h yperglycemia [facility]-20 12:47 Urinary tract infection, site n ot specified [facility]24-[facility]-20 12:47 shelter (current) use of insu [employer] 2024-12-25 09:19 Malignant neoplasm of trachea [facility] 2024-12-25 09:19 Type 2 diabetes mellitus with h yperglycemia [email or web address] 2024-12-25 09:19 Urinary tract infection, site n ot specified [facility] 2024-12-25 09:19 [employer] (current) use of insu swati [facility] 2024-12-25 09:22 Malignant neoplasm of trachea [facility] 2024-12-25 09:22 Type 2 diabetes mellitus with h yperglycemia [email or web address] 2024-12-25 09:22 Urinary tract infection, site n ot specified [email or web address] 2024-12-25 09:22 [employer] (current) use of insu swati [facility] 2024-12-25 09:48 Malignant neoplasm of trachea [facility] 2024-12-25 09:48 Type 2 diabetes mellitus with h yperglycemia [email or web address] 2024-12-25 09:48 Urinary tract infection, site n ot specified [facility] 2024-12-25 09:48 [employer] (current) use of insu [employer] [email or web address] 2024-12-25 10:02 [facility]a [facility] 2024-12-25 10:02 Gastrostomy status [facility] 2024-12-25 10:13 Malignant neoplasm of trachea [facility] 2024-12-25 10:13 [facility]astrostomy status [facility] 2024-12-25 10:14 Malignant neoplasm of trachea [facility] 2024-12-25 10:14 [facility]astrostomy status [facility] 2024-12-25 11:17 Malignant neoplasm of trachea [facility] 2024-12-25 11:17 Type 2 diabetes mellitus with h yperglycemia [facility]25 11:17 Urinary tract infection, site n ot specified [facility] 2024-12-25 11:17 shelter (current) use of insu [facility] [email or web address] 2024-12-27 07:29 Malignant neoplasm of trachea [facility] 2024-12-27 07:29 [facility]astrostomy status [facility] 2024-12-27 08:18 Malignant neoplasm of trachea [facility] 2024-12-27 08:18 Type 2 diabetes mellitus with h yperglycemia [facility]27 08:18 Urinary tract infection, site n ot specified [email or web address] 2024-12-27 08:18 shelter (current) use of insu [facility]ati [email or web address] 2024-12-27 11:50 Malignant neoplasm of trachea [facility] 2024-12-27 11:50 Neoplasm related pain (acute) ( chronic) [email or web address] 2024-12-27 11:50 Other specified diseases of upp er respiratory tract [facility]27 11:50 Encounter for genera l adult medical examination without abnormal findings [email or web address] 2024-12-27 11:50 Encounter for antineoplastic ch emotherapy [facility] 2024-12-27 11:50 Procedure and treatm ent not carried out, unspecified reason [email or web address] 2024-12-27 11:50 Gastrostomy status [facility] 2025-01-01 08:15 Malignant [facility] trachea [facility] 2025-01-01 08:15 Type 2 diabetes mellitus with h yperglycemia [facility] 2025-01-01 08:15 Urinary tract infection, site n ot specified [facility] 2025-01-01 08:15 shelter (current) use of insu [facility]25-[facility]01 08:52 Malignant [facility]oplasm [facility] trachea [facility] 2025-01-01 08:52 Type 2 diabetes mellitus with h yperglycemia [facility] 2025-01-01 08:52 Urinary tract infection, site n ot specified [facility] 2025-01-01 08:52 shelter (current) use of insu [facility] 2025-[facility]-01 08:55 Malignant [facility]oplasm [facility] trachea [facility] 2025-01-01 08:55 Type 2 diabetes mellitus with h yperglycemia [facility] 2025-[facility]-01 08:55 Urinary tract infection, site n ot specified [facility] 2025-01-01 08:55 [employer] (current) use of insu [facility] 2025-01-01 12:23 Malignant [facility] trachea [facility] 2025-01-01 12:23 Gastrostomy status [facility] 2025-01-03 08:12 Malignant neoplasm of trachea [facility] 2025-01-03 08:20 [facility]ignant [facility] trachea [facility] 2025-01-03 08:20 Type 2 diabetes mellitus with h yperglycemia [facility]25-[facility]03 08:20 Urinary tract infection, site n ot specified [email or web address] 2025-01-03 08:20 shelter (current) use of insu swati [email or web address] 2025-01-03 08:21 Malignant neoplasm of trachea [facility] 2025-01-03 08:21 Type 2 diabetes mellitus with h yperglycemia [facility]25-[facility]03 08:21 Urinary tract infection, site n ot specified [email or web address] 2025-01-03 08:21 shelter (current) use of insu [facility] 2025-01-03 08:35 Malignant neoplasm of trachea [facility] 2025-01-03 08:35 Type 2 diabetes mellitus with h yperglycemia [facility] 2025-01-03 08:35 Urinary tract infection, site n ot specified [email or web address] 2025-01-03 08:35 [employer] (current) use of insu [facility]ati [email or web address] 2025-01-03 08:40 Malignant neoplasm of trachea [facility] 2025-01-03 08:52 Malignant neoplasm of trachea [facility] 2025-01-03 08:52 Type 2 diabetes mellitus with h yperglycemia [facility] 2025-01-03 08:52 Urinary tract infection, site n ot specified [facility] 2025-[facility]-03 08:52 [employer] (current) use of insu [facility] [email or web address] 2025-01-03 09:04 Malignant neoplasm of trachea [facility] 2025-01-03 09:04 Type 2 diabetes mellitus with h yperglycemia [facility]25-[facility]03 09:04 Urinary tract infection, site n ot specified [email or web address] 2025-01-03 09:04 [employer] (current) use of insu [employer] 2025-01-03 09:09 Malignant neoplasm of trachea [facility] 2025-01-03 09:09 Type 2 diabetes mellitus with h yperglycemia [facility]25-[facility]03 09:09 Urinary tract infection, site n ot specified [email or web address] 2025-01-03 09:09 [employer] (current) use of insu [facility] 2025-01-03 10:27 Malignant neoplasm of trachea [facility] 2025-01-03 10:27 Type 2 diabetes mellitus with h yperglycemia [facility] 2025-01-03 10:27 Urinary tract infection, site n ot specified [facility]25-[facility]03 10:27 shelter (current) use of insu [facility] 2025-01-03 10:29 Malignant neoplasm of trachea [facility] 2025-01-03 10:29 Type 2 diabetes mellitus with h yperglycemia [email or web address] 2025-01-03 10:29 Urinary tract infection, site n ot specified [facility] 2025-[facility]-03 10:29 shelter (current) use of insu [facility] 2025-01-03 10:32 Malignant neoplasm of trachea [facility] 2025-01-03 10:32 Type 2 diabetes mellitus with h yperglycemia [facility] 2025-01-03 10:32 Urinary tract infection, site n ot specified [facility] 2025-01-03 10:32 shelter (current) use of insu [facility] 2025-01-03 10:34 Malignant neoplasm of trachea [facility] 2025-01-03 10:34 Type 2 diabetes mellitus with h yperglycemia [facility] 2025-01-03 10:34 Urinary tract infection, site n ot specified [facility] 2025-[facility]03 10:34 shelter (current) use of insu [email or web address] 2025-01-03 11:21 Malignant neoplasm of trachea [facility] 2025-01-03 11:21 Type 2 diabetes mellitus with h yperglycemia [facility] 2025-01-03 11:21 Urinary tract infection, site n ot specified [facility] 2025-[facility]-03 11:21 shelter (current) use of insu [email or web address] 2025-01-03 11:22 Malignant neoplasm of trachea [facility] 2025-01-03 11:22 Type 2 diabetes mellitus with h yperglycemia [facility] 2025-01-03 11:22 Urinary tract infection, site n ot specified [facility] 2025-01-03 11:22 [employer] (current) use of insu [facility] 2025-01-04 00:03 Malignant neoplasm of trachea [facility] 2025-01-08 09:00 Malignant neoplasm of trachea [facility] 2025-01-08 09:00 Type 2 diabetes mellitus with h yperglycemia [facility] 2025-01-08 09:00 Urinary tract infection, site n ot specified [facility] 2025-01-08 09:00 shelter (current) use of insu [facility] 2025-01-08 09:01 Malignant neoplasm of trachea [facility] 2025-01-08 09:01 Type 2 diabetes mellitus with h yperglycemia [facility] 2025-01-08 09:01 Urinary tract infection, site n ot specified [email or web address] 2025-01-08 09:01 shelter (current) use of insu [facility]ati [email or web address] 2025-01-08 09:58 [facility] 2025-[facility]-08 09:58 Type 2 diabetes mellitus with h yperglycemia [facility] 2025-01-08 09:58 Urinary tract infection, site n ot specified [email or web address] 2025-01-08 09:58 [employer] (current) use of insu [employer] [email or web address] 2025-01-08 09:59 Malignant neoplasm of trachea [facility] 2025-01-08 09:59 Type 2 diabetes mellitus with h yperglycemia [facility] 2025-01-08 09:59 Urinary tract infection, site n ot specified [email or web address] 2025-01-08 09:59 [employer] (current) use of insu [facility] 2025-01-08 10:00 Malignant neoplasm of trachea [facility] 2025-01-08 10:00 Type 2 diabetes mellitus with h yperglycemia [facility]08 10:00 Urinary tract infection, site n ot specified [email or web address] 2025-01-08 10:00 [employer] (current) use of insu [employer] 2025-01-08 10:05 Malignant neoplasm of trachea [facility] 2025-01-08 10:05 Type 2 diabetes mellitus with h yperglycemia [facility] 2025-01-08 10:05 Urinary tract infection, site n ot specified [email or web address] 2025-01-08 10:05 shelter (current) use of insu [employer] 2025-01-08 10:11 Malignant neoplasm of trachea [facility] 2025-01-08 10:11 Type 2 diabetes mellitus with h yperglycemia [facility] 2025-01-08 10:11 Urinary tract infection, site n ot specified [facility] 2025-01-08 10:11 shelter (current) use of insu [facility] 2025-01-08 13:43 Malignant neoplasm of trachea [facility] 2025-01-08 13:43 Type 2 diabetes mellitus with h yperglycemia [facility] 2025-01-08 13:43 Urinary tract infection, site n ot specified [email or web address] 2025-01-08 13:43 shelter (current) use of insu [facility]ati [facility] 2025-01-08 15:49 Malignant neoplasm of trachea [facility] 2025-01-08 15:49 Type 2 diabetes mellitus with h yperglycemia [facility] 2025-01-08 15:49 Urinary tract infection, site n ot specified [email or web address] 2025-01-08 15:49 [employer] (current) use of insu [facility] 2025-01-09 15:59 Malignant neoplasm of trachea [facility] 2025-01-09 15:59 Type 2 diabetes mellitus with h yperglycemia [email or web address] 2025-01-09 15:59 Urinary tract infection, site n ot specified [email or web address] 2025-01-09 15:59 [employer] (current) use of insu [employer] 2025-01-10 08:03 Malignant neoplasm of trachea [facility] 2025-01-10 08:03 Type 2 diabetes mellitus with h yperglycemia [email or web address] 2025-01-10 08:03 Urinary tract infection, site n ot specified [email or web address] 2025-01-10 08:03 [employer] (current) use of insu [employer] 2025-01-10 09:46 Malignant neoplasm of trachea [facility] 2025-01-10 09:46 Type 2 diabetes mellitus with h yperglycemia [facility] 2025-01-10 09:46 Urinary tract infection, site n ot specified [email or web address] 2025-01-10 09:46 shelter (current) use of insu [facility] 2025-01-10 09:47 Malignant neoplasm of trachea [facility] 2025-01-10 09:47 Type 2 diabetes mellitus with h yperglycemia [email or web address] 2025-01-10 09:47 Urinary tract infection, site n ot specified [facility] 2025-01-10 09:47 [employer] (current) use of [email or web address] 2025-01-10 10:03 Malignant neoplasm of trachea [facility] 2025-01-10 10:03 Type 2 diabetes mellitus with h yperglycemia [facility] 2025-[facility]10 10:03 Urinary tract infection, site n ot specified [facility] [facility]:03 [employer] (current) use of [email or web address] 2025-01-10 11:10 Malignant neoplasm of trachea [employer] [facility] 2025-01-10 11:10 Anemia, unspecified [facility] 2025-01-10 11:10 Neoplasm related pain (acute) ( chronic) [facility] [employer] [facility] 2025-01-10 11:10 Other pulmonary embolism withou t acute cor pulmonale [facility] [employer] [facility] 2025-01-10 11:10 Other specified diseases of upp er respiratory tract [facility] [employer] [facility] 2025-01-10 11:10 Dysuria [facility] [employer] [facility] 2025-01-10 11:10 Encounter for genera l adult medical examination without abnormal findings [facility] [employer] [facility] 2025-01-10 11:10 Encounter for [facility]ineoplastic ch emotherapy [facility] 11:10 Gastrostomy status [facility] 2025-01-10 11:27 Malignant neoplasm of trachea [employer] [facility] 2025-01-10 11:27 Anemia, unspecified [facility] 2025-01-10 11:27 Neoplasm related pain (acute) ( chronic) [facility] [employer] [facility] 2025-01-10 11:27 Other pulmonary embolism withou t acute cor pulmonale [facility] [employer] [facility] 2025-01-10 11:27 Other specified diseases of upp er respiratory tract [facility] [employer] [facility] 2025-01-10 11:27 Dysuria [facility] [employer] [facility] 2025-01-10 11:27 Encounter for genera l adult medical examination without abnormal findings [email or web address] 2025-01-10 11:27 Encounter for antineoplastic ch emotherapy [facility] [employer] [facility] 2025-01-10 11:27 Gastrostomy status [facility] 2025-01-10 15:43 [facility] 2025-01-10 15:43 Type 2 diabetes mellitus with h yperglycemia [facility] 2025-01-10 15:43 Urinary tract infection, site n ot specified [facility] 2025-01-10 15:43 shelter (current) use of insu swati [facility] [employer] [facility] 2025-01-10 16:25 Acute upper respiratory infecti on, unspecified [facility] [employer] [facility] 2025-01-10 16:25 Bronchitis, not specified as ac crow or chronic [facility] [employer] [facility] 2025-01-10 16:25 Nausea [facility] 2025-01-13 18:31 Diarrhea, unspecified [facility] [employer] [facility] 2025-01-13 18:47 Diarrhea, unspecified [facility] [employer] [facility] 2025-01-14 08:56 Diarrhea, unspecified [facility] [employer] [facility] 2025-01-14 15:58 [facility]ignant [facility] 2025-01-14 15:58 Type 2 diabetes mellitus with h yperglycemia [facility] 2025-01-14 15:58 Urinary tract infection, site n ot specified [facility] [employer] [facility] 2025-01-14 15:58 shelter (current) use of insu swati [employer] [facility] 2025-01-15 07:49 [facility]ignant [facility] [employer] [facility] 2025-01-15 07:49 Type 2 diabetes mellitus with h yperglycemia [facility] [employer] [facility] 2025-01-15 07:49 Urinary tract infection, site n ot specified [facility] [employer] [facility] 2025-01-15 07:49 shelter (current) use of insu [email or web address] 2025-01-15 08:44 Malignant neoplasm of trachea [employer] [facility] 2025-01-15 08:44 Type 2 diabetes mellitus with h yperglycemia [facility] [employer] [facility] 2025-01-15 08:44 Urinary tract infection, site n ot specified [facility] [employer] [facility] 2025-01-15 08:44 [employer] (current) use of insu [email or web address] 2025-01-16 08:08 Unspecified abdominal pain [employer] 2025-01-16 08:08 Diarrhea, unspecified [facility] [employer] [facility] 2025-01-16 15:20 Malignant [facility] trachea [facility] [employer] [facility] 2025-01-16 15:20 Type 2 diabetes mellitus with h yperglycemia [facility] [employer] [facility] 2025-01-16 15:20 Urinary tract infection, site n ot specified [facility] [employer] [facility] 2025-01-16 15:20 shelter (current) use of insu swati [email or web address] 2025-01-17 07:56 Malignant neoplasm of trachea [employer] 2025-01-17 08:06 Malignant neoplasm of trachea [employer] [facility] 2025-01-17 08:06 Type 2 diabetes mellitus with h yperglycemia [facility] 08:06 Urinary tract infection, site n ot specified [facility]17 08:06 shelter (current) use of insu swati [email or web address] 2025-01-17 08:07 Malignant neoplasm of trachea [employer] 2025-01-17 08:07 Type 2 diabetes mellitus with h yperglycemia [facility] 08:07 Urinary tract infection, site n ot specified [facility] 2025-01-17 08:07 [employer] (current) use of insu swati [email or web address] 2025-01-17 08:27 Malignant neoplasm of trachea [employer] 2025-01-17 08:27 Type 2 diabetes mellitus with h yperglycemia [facility]17 08:27 Urinary tract infection, site n ot specified [email or web address] 2025-01-17 08:27 [employer] (current) use of insu swati [email or web address] 2025-01-17 08:48 Malignant neoplasm of trachea [employer] 2025-01-17 08:48 Type 2 diabetes mellitus with h yperglycemia [facility]17 08:48 Urinary tract infection, site n ot specified [email or web address] 2025-01-17 08:48 shelter (current) use of insu swati [email or web address] 2025-01-17 08:57 Malignant neoplasm of trachea [employer] 2025-01-17 10:02 Malignant neoplasm of trachea [employer] 2025-01-17 10:02 Type 2 diabetes mellitus with h yperglycemia [email or web address] 2025-01-17 10:02 Urinary tract infection, site n ot specified [email or web address] 2025-01-17 10:02 [employer] (current) use of insu swati [employer] 2025-01-17 15:47 Malignant neoplasm of trachea [employer] 2025-01-17 15:47 Type 2 diabetes mellitus with h yperglycemia [facility] 15:47 Urinary tract infection, site n ot specified [email or web address] 2025-01-17 15:47 [employer] (current) use of insu swati [employer] 2025-01-17 15:48 Malignant neoplasm of trachea [employer] 2025-01-17 15:48 Type 2 diabetes mellitus with h yperglycemia [facility]17 15:48 Urinary tract infection, site n ot specified [email or web address] 2025-01-17 15:48 [employer] (current) use of insu swati [employer] 2025-01-17 15:51 Malignant neoplasm of trachea [employer] 2025-01-17 15:51 Type 2 diabetes mellitus with h yperglycemia [facility]17 15:51 Urinary tract infection, site n ot specified [email or web address] 2025-01-17 15:51 [employer] (current) use of insu [employer] 2025-01-17 15:52 Malignant neoplasm of trachea [employer] 2025-01-17 15:52 Type 2 diabetes mellitus with h yperglycemia [email or web address] 2025-01-17 15:52 Urinary tract infection, site n ot specified [employer] 2025-01-17 15:52 shelter (current) use of insu swati [employer] 2025-01-20 14:53 Toxic gastroenteritis and colit is [employer] 2025-01-20 14:53 Personal history of antineoplas tic chemotherapy [employer] 2025-01-21 09:01 Malignant neoplasm of trachea W [employer] 2025-01-21 09:01 Other pulmonary embolism withou t acute cor pulmonale [employer] 2025-01-21 09:01 Other diseases of me diastinum, not elsewhere classified [employer] 2025-01-21 09:11 Malignant neoplasm of trachea W [employer] 2025-01-21 09:11 Other pulmonary embolism withou t acute cor pulmonale [employer] 2025-01-21 09:11 Other diseases of me diastinum, not elsewhere classified [employer] 2025-01-21 11:39 Malignant neoplasm of trachea W [employer] 2025-01-21 12:31 Malignant neoplasm of trachea W [employer] 2025-01-21 12:31 Other pulmonary embolism withou t acute cor pulmonale [employer] 2025-01-21 12:31 Other diseases of me diastinum, not elsewhere classified [employer] 2025-01-21 14:13 Malignant neoplasm of trachea [employer] 2025-01-21 14:13 Type 2 diabetes mellitus with h yperglycemia [employer] 2025-01-21 14:13 Urinary tract infection, site n ot specified [employer] 2025-01-21 14:13 shelter (current) use of insu [employer] 2025-01-22 08:25 Malignant neoplasm of trachea [employer] 2025-01-22 08:25 Type 2 diabetes mellitus with h yperglycemia [employer] 2025-01-22 08:25 Urinary tract infection, site n ot specified [employer] 2025-01-22 08:25 shelter (current) use of insu [employer] 2025-01-22 08:52 Malignant neoplasm of trachea W [employer] 2025-01-22 08:52 Type 2 diabetes mellitus with h yperglycemia [employer] 2025-01-22 08:52 Urinary tract infection, site n ot specified [employer] 2025-01-22 08:52 [employer] (current) use of insu [employer] 2025-01-23 13:20 Malignant neoplasm of trachea W [employer] 2025-01-23 13:20 Other pulmonary embolism withou t acute cor pulmonale [employer] 2025-01-23 13:20 Other diseases of me diastinum, not elsewhere classified [employer] 2025-01-24 00:01 Malignant neoplasm of trachea W [employer] 2025-01-24 00:01 Other pulmonary embolism withou t acute cor pulmonale [employer] 2025-01-24 00:01 Other diseases of me diastinum, not elsewhere classified [employer] 2025-01-24 07:24 Malignant neoplasm of trachea [employer] 2025-01-24 07:40 Malignant neoplasm of trachea W [employer] 2025-01-24 07:40 Type 2 diabetes mellitus with h yperglycemia [employer] 2025-01-24 07:40 Urinary tract infection, site n ot specified [employer] 2025-01-24 07:40 [employer] (current) use of insu [employer] 2025-01-24 07:41 Malignant neoplasm of trachea [employer] 2025-01-24 07:41 Type 2 diabetes mellitus with h yperglycemia [employer] 2025-01-24 07:41 Urinary tract infection, site n ot specified [employer] 2025-01-24 07:41 shelter (current) use of [employer] 2025-01-24 08:07 Malignant neoplasm of trachea [employer] 2025-01-24 08:07 Type 2 diabetes mellitus with h yperglycemia [employer] 2025-01-24 08:07 Urinary tract infection, site n ot specified [employer] 2025-01-24 08:07 [employer] (current) use of [employer] 2025-01-24 11:07 Malignant neoplasm of trachea [employer] 2025-01-24 11:07 Anemia, unspecified [facility] 2025-01-24 11:07 Other pulmonary embolism withou t acute cor pulmonale [employer] 2025-01-24 11:07 Other specified diseases of upp er respiratory tract [employer] 2025-01-24 11:07 [facility] 2025-01-24 11:07 Pain in left knee [facility] 2025-01-24 11:07 Encounter for genera l adult medical examination without abnormal findings [email or web address] 2025-01-24 11:07 Encounter for antineoplastic ch emotherapy [email or web address] 2025-01-24 11:07 [facility]astrostomy status [facility] [employer] [facility] 2025-01-24 11:15 Malignant neoplasm of trachea [employer] 2025-01-24 15:43 Malignant neoplasm of trachea [employer] 2025-01-24 15:43 Type 2 diabetes mellitus with h yperglycemia [facility] 15:43 Urinary tract infection, site n ot specified [email or web address] 2025-01-24 15:43 [employer] (current) use of insu swati [email or web address] 2025-01-25 00:03 Malignant neoplasm of trachea [employer] 2025-01-28 13:15 Malignant neoplasm of trachea [employer] 2025-01-28 13:15 Type 2 diabetes mellitus with h yperglycemia [facility]28 13:15 Urinary tract infection, site n ot specified [email or web address] 2025-01-28 13:15 shelter (current) use of insu swati [email or web address] 2025-01-29 08:55 Malignant neoplasm of trachea [employer] [facility] 2025-01-29 08:55 Type 2 diabetes mellitus with h yperglycemia [facility]25-[facility]29 08:55 Urinary tract infection, site n ot specified [email or web address] 2025-01-29 08:55 shelter (current) use of insu swati [email or web address] 2025-02-05 09:08 Cough, unspecified [facility] [employer] [facility] 2025-02-05 09:08 Shortness of breath [employer] [facility] 2025-02-07 07:21 Malignant neoplasm of trachea [employer] 2025-02-07 08:33 Malignant neoplasm of trachea [employer] 2025-02-07 08:33 Type 2 diabetes mellitus with h yperglycemia [email or web address] 2025-02-07 08:33 Urinary tract infection, site n ot specified [email or web address] 2025-02-07 08:33 shelter (current) use of insu swati [email or web address] 2025-02-07 08:54 Malignant neoplasm of trachea [facility] 2025-02-07 08:54 Type 2 diabetes mellitus with h yperglycemia [facility] 2025-02-07 08:54 Urinary tract infection, site n ot specified [facility] 2025-02-07 08:54 [employer] (current) use of insu swati [email or web address] 2025-02-07 09:08 Malignant neoplasm of trachea [facility] [employer] [facility] 2025-02-07 09:08 Type 2 diabetes mellitus with h yperglycemia [facility] 2025-02-07 09:08 Urinary tract infection, site n ot specified [email or web address] 2025-02-07 09:08 [employer] (current) use of insu swati [email or web address] 2025-02-07 09:25 Malignant neoplasm of trachea [facility] [employer] [facility] 2025-02-07 09:25 Type 2 diabetes mellitus with h yperglycemia [facility] [employer] [facility] 2025-02-07 09:25 Urinary tract infection, site n ot specified [email or web address] 2025-02-07 09:25 [employer] (current) use of insu [employer]ait [employer] 2025-02-07 09:27 Malignant neoplasm of trachea [employer] [facility] 2025-02-07 09:27 Type 2 diabetes mellitus with h yperglycemia [facility] [employer] [facility] 2025-02-07 09:27 Urinary tract infection, site n ot specified [email or web address] 2025-02-07 09:27 [employer] (current) use of insu swati [employer] 2025-02-07 10:10 Malignant neoplasm of trachea W [employer] [facility] 2025-02-07 10:10 Type 2 diabetes mellitus with h yperglycemia [facility] [employer] [facility] 2025-02-07 10:10 Urinary tract infection, site n ot specified [email or web address] 2025-02-07 10:10 [employer] (current) use of insu swati [employer] 2025-02-07 13:21 Dyspnea, unspecified [facility] 2025-02-07 14:34 Malignant neoplasm of trachea [facility] [employer] [facility] 2025-02-07 14:34 Type 2 diabetes mellitus with h yperglycemia [facility] [employer] [facility] 2025-02-07 14:34 Urinary tract infection, site n ot specified [facility] 2025-[facility]-07 14:34 shelter (current) use of insu swati [email or web address] 2025-02-07 14:37 Malignant neoplasm of trachea [employer] [facility] 2025-02-07 14:37 Type 2 diabetes mellitus with h yperglycemia [facility] [employer] [facility] 2025-02-07 14:37 Urinary tract infection, site n ot specified [facility] 2025-[facility]-07 14:37 shelter (current) use of insu swati [email or web address] 2025-02-07 14:38 Malignant neoplasm of trachea [employer] [facility] 2025-02-07 14:38 Type 2 diabetes mellitus with h yperglycemia [facility] [employer] [facility] 2025-02-07 14:38 Urinary tract infection, site n ot specified [email or web address] 2025-02-07 14:38 shelter (current) use of insu swati [employer] 2025-02-07 14:52 Malignant neoplasm of trachea [employer] 2025-02-07 14:52 Type 2 diabetes mellitus with h yperglycemia [facility] 2025-[facility]07 14:52 Urinary tract infection, site n ot specified [email or web address] 2025-02-07 14:52 shelter (current) use of insu swati [employer] 2025-02-07 15:38 Malignant neoplasm of trachea [employer] 2025-02-07 15:38 Type 2 diabetes mellitus with h yperglycemia [facility] 2025-[facility]-07 15:38 Urinary tract infection, site n ot specified [email or web address] 2025-02-07 15:38 shelter (current) use of insu swati [employer] 2025-02-07 15:39 Malignant neoplasm of trachea [employer] 2025-02-07 15:39 Type 2 diabetes mellitus with h yperglycemia [facility] 2025-02-07 15:39 Urinary tract infection, site n ot specified [email or web address] 2025-02-07 15:39 [employer] (current) use of insu swati [employer] 2025-02-07 15:40 Malignant neoplasm of trachea [facility] [employer] 2025-02-07 15:40 Type 2 diabetes mellitus with h yperglycemia [facility] 2025-02-07 15:40 Urinary tract infection, site n ot specified [facility] 2025-02-07 15:40 [employer] (current) use of insu swati [facility] 2025-02-07 15:57 Malignant neoplasm of trachea [facility] 2025-02-07 15:57 Type 2 diabetes mellitus with h yperglycemia [facility] 2025-02-07 15:57 Urinary tract infection, site n ot specified [facility] 2025-02-07 15:57 [employer] (current) use of insu swati [facility] 2025-02-07 16:04 Malignant neoplasm of trachea [facility] 2025-02-07 16:04 Type 2 diabetes mellitus with h yperglycemia [facility] 2025-02-07 16:04 Urinary tract infection, site n ot specified [facility] 2025-02-07 16:04 shelter (current) use of insu swati [facility] 2025-02-07 16:05 Malignant neoplasm of trachea [facility] 2025-02-07 16:05 Type 2 diabetes mellitus with h yperglycemia [facility] 2025-02-07 16:05 Urinary tract infection, site n ot specified [facility] 2025-02-07 16:05 shelter (current) use of insu [facility]ati [facility] 2025-02-07 16:06 Malignant neoplasm of trachea [facility] 2025-02-07 16:06 Type 2 diabetes mellitus with h yperglycemia [facility] 2025-02-07 16:06 Urinary tract infection, site n ot specified [facility] 2025-02-07 16:06 [employer] (current) use of insu swati [facility] 2025-02-07 16:09 Malignant neoplasm of trachea [facility] 2025-02-07 16:09 Type 2 diabetes mellitus with h yperglycemia [facility] 2025-02-07 16:09 Urinary tract infection, site n ot specified [facility] 2025-02-07 16:09 [employer] (current) use of insu swati [employer] 2025-02-07 16:10 Malignant neoplasm of trachea [facility] [employer] [facility] 2025-02-07 16:10 Type 2 diabetes mellitus with h yperglycemia [facility] [employer] [facility] 2025-02-07 16:10 Urinary tract infection, site n ot specified [facility] 2025-02-07 16:10 [employer] (current) use of insu swati [email or web address] 2025-02-07 16:12 Malignant neoplasm of trachea [facility] [employer] [facility] 2025-02-07 16:12 Type 2 diabetes mellitus with h yperglycemia [facility] [employer] [facility] 2025-02-07 16:12 Urinary tract infection, site n ot specified [email or web address] 2025-02-07 16:12 shelter (current) use of insu swati [employer] 2025-02-11 07:46 Malignant neoplasm of trachea [employer] [facility] 2025-02-11 12:59 Malignant neoplasm of trachea [employer] [facility] 2025-02-11 12:59 Type 2 diabetes mellitus with h yperglycemia [email or web address] 2025-02-11 12:59 Urinary tract infection, site n ot specified [email or web address] 2025-02-11 12:59 shelter (current) use of insu swati [employer] 2025-02-11 13:00 Malignant neoplasm of trachea [employer] 2025-02-11 13:00 Type 2 diabetes mellitus with h yperglycemia [facility]-11 13:00 Urinary tract infection, site n ot specified [email or web address] 2025-02-11 13:00 [employer] (current) use of insu swati [employer] 2025-02-11 15:19 Malignant neoplasm of trachea [facility] [employer] 2025-02-11 15:19 Type 2 diabetes mellitus with h yperglycemia [email or web address] 2025-02-11 15:19 Urinary tract infection, site n ot specified [email or web address] 2025-02-11 15:19 shelter (current) use of insu swati [employer] 2025-02-12 08:05 Malignant neoplasm of trachea [employer] 2025-02-12 08:05 Type 2 diabetes mellitus with h yperglycemia [email or web address] 2025-02-12 08:05 Urinary tract infection, site n ot specified [email or web address] 2025-02-12 08:05 shelter (current) use of insu swati [employer] 2025-02-12 08:50 Malignant neoplasm of trachea [facility] [employer] [facility] 2025-02-12 08:50 Type 2 diabetes mellitus with h yperglycemia [facility] [employer] [facility] 2025-02-12 08:50 Urinary tract infection, site n ot specified [email or web address] 2025-02-12 08:50 [employer] (current) use of insu swati [email or web address] 2025-02-12 08:51 Malignant neoplasm of trachea [facility] [employer] 2025-02-12 08:51 Type 2 diabetes mellitus with h yperglycemia [employer] [facility] 2025-02-12 08:51 Urinary tract infection, site n ot specified [email or web address] 2025-02-12 08:51 shelter (current) use of insu swati [employer] 2025-02-12 08:54 Malignant neoplasm of trachea [employer] 2025-02-12 08:54 Type 2 diabetes mellitus with h yperglycemia [facility] 08:54 Urinary tract infection, site n ot specified [email or web address] 2025-02-12 08:54 shelter (current) use of insu swati [employer] 2025-02-12 09:51 Malignant neoplasm of trachea W [employer] 2025-02-12 09:51 Type 2 diabetes mellitus with h yperglycemia [email or web address] 2025-02-12 09:51 Urinary tract infection, site n ot specified [employer] 2025-02-12 09:51 shelter (current) use of insu swati [employer] 2025-02-12 11:29 Malignant neoplasm of trachea [employer] 2025-02-12 11:29 Type 2 diabetes mellitus with h yperglycemia [employer] 2025-02-12 11:29 Type 2 diabetes mellitus withou t complications [facility] 2025-02-12 11:29 Urinary tract infection, site n ot specified [employer] 2025-02-12 11:29 [employer] (current) use of insu swati [employer] 2025-02-12 11:31 Malignant neoplasm of trachea [employer] 2025-02-12 11:31 Type 2 diabetes mellitus with h yperglycemia [facility] 11:31 Type 2 diabetes mellitus withou t complications [facility] 2025-[facility]12 11:31 Urinary tract infection, site n ot specified [facility] 2025-02-12 11:31 shelter (current) use of insu swati [email or web address] 2025-02-12 11:35 Type 2 diabetes mellitus withou t complications [facility] 2025-02-12 11:35 [employer] (current) use of insu swati [employer] 2025-02-12 14:04 Type 2 diabetes mellitus withou t [facility]04 [employer] (current) use of insu swati [email or web address] 2025-02-14 08:19 Malignant neoplasm of trachea [employer] 2025-02-14 08:19 Type 2 diabetes mellitus with h [facility]perglycemia [facility] 08:19 Type 2 diabetes mellitus with[facility] t complications [facility]14 08:19 Urinary tract infection, site n ot specified [email or web address] 2025-02-14 08:19 shelter (current) use of insu [employer] 2025-02-14 09:11 Malignant neoplasm of trachea [employer] 2025-02-14 09:11 Type 2 diabetes mellitus with h yperglycemia [email or web address] 2025-02-14 09:11 Type 2 diabetes mellitus withou t complications [email or web address] 2025-02-14 09:11 Urinary tract infection, site n ot specified [email or web address] 2025-02-14 09:11 [employer] (current) use of insu swati [employer] 2025-02-14 12:33 Malignant neoplasm of trachea [employer] 2025-02-14 12:33 Type 2 diabetes mellitus with h yperglycemia [email or web address] 2025-02-14 12:33 Type 2 diabetes mellitus withou t complications [email or web address] 2025-02-14 12:33 Urinary tract infection, site n ot specified [email or web address] 2025-02-14 12:33 [employer] (current) use of insu swati [employer] 2025-02-14 16:06 Malignant neoplasm of trachea W [employer] 2025-02-14 16:06 Type 2 diabetes mellitus with h yperglycemia [employer] 2025-02-14 16:06 Type 2 diabetes mellitus withou t complications [employer] 2025-02-14 16:06 Urinary tract infection, site n ot specified [employer] 2025-02-14 16:06 [employer] (current) use of insu [employer] 2025-02-18 15:33 Malignant neoplasm of trachea W [employer] 2025-02-18 15:33 Type 2 diabetes mellitus with h yperglycemia [employer] 2025-02-18 15:33 Type 2 diabetes mellitus withou t complications [employer] 2025-02-18 15:33 Urinary tract infection, site n ot specified [employer] 2025-02-18 15:33 shelter (current) use of insu [employer] 2025-02-19 07:44 Malignant neoplasm of trachea W [employer] 2025-02-19 08:01 Malignant neoplasm of trachea W [employer] 2025-02-19 08:01 Type 2 diabetes mellitus with h yperglycemia [employer] 2025-02-19 08:01 Type 2 diabetes mellitus withou t complications [employer] 2025-02-19 08:01 Urinary tract infection, site n ot specified [employer] 2025-02-19 08:01 [employer] (current) use of insu [employer] 2025-02-19 08:59 Malignant neoplasm of trachea W [employer] 2025-02-19 08:59 Type 2 diabetes mellitus with h yperglycemia [employer] 2025-02-19 08:59 Type 2 diabetes mellitus withou t complications [employer] 2025-02-19 08:59 Urinary tract infection, site n ot specified [employer] 2025-02-19 08:59 [employer] (current) use of insu [employer] 2025-02-19 09:18 Malignant neoplasm of trachea W [employer] 2025-02-19 09:20 Malignant neoplasm of trachea W [employer] [facility] 2025-02-19 09:20 Type 2 diabetes mellitus with h yperglycemia [employer] 2025-02-19 09:20 Type 2 diabetes mellitus withou t complications [email or web address] 2025-02-19 09:20 Urinary tract infection, site n ot specified [facility] 09:20 shelter (current) use of insu [employer] 2025-02-19 10:36 Malignant neoplasm of trachea [employer] [facility] 2025-02-19 10:36 Anemia, unspecified [facility] 2025-02-19 10:36 Type 2 diabetes mellitus with h yperglycemia [employer] 2025-02-19 10:36 Type 2 diabetes mellitus withou t complications [facility] 10:36 Urinary tract infection, site n ot specified [email or web address] 2025-02-19 10:36 Nausea with vomiting, unspecifi ed [email or web address] 2025-02-19 10:36 shelter (current) use of insu [employer] 2025-02-19 10:37 Malignant neoplasm of trachea [employer] 2025-02-19 10:37 Anemia, unspecified [facility] [facility] 2025-02-19 10:37 Type 2 diabetes mellitus with h yperglycemia [employer] 2025-02-19 10:37 Type 2 diabetes mellitus withou t complications [email or web address] 2025-02-19 10:37 Urinary tract infection, site n ot specified [email or web address] 2025-02-19 10:37 Nausea with vomiting, unspecifi ed [email or web address] 2025-02-19 10:37 [employer] (current) use of insu [employer] 2025-02-19 10:42 Malignant neoplasm of trachea [employer] 2025-02-19 10:42 Anemia, unspecified [facility] [facility] 2025-02-19 10:42 Type 2 diabetes mellitus with h yperglycemia [employer] 2025-02-19 10:42 Type 2 diabetes mellitus withou t complications [employer] 2025-02-19 10:42 Urinary tract infection, site n ot specified [email or web address] 2025-02-19 10:42 Nausea with vomiting, unspecifi ed [email or web address] 2025-02-19 10:42 shelter (current) use of insu swati [email or web address] 2025-02-19 10:43 Malignant neoplasm of trachea [employer] [facility] 2025-02-19 10:43 Anemia, unspecified [facility] 2025-02-19 10:43 Type 2 diabetes mellitus with h yperglycemia [email or web address] 2025-02-19 10:43 Type 2 diabetes mellitus withou t complications [facility] 10:43 Urinary tract infection, site n ot specified [email or web address] 2025-02-19 10:43 Nausea with vomiting, unspecifi ed [facility] 10:43 shelter (current) use of [employer] 2025-02-19 10:53 Malignant neoplasm of trachea [employer] [facility] 2025-02-19 10:53 Anemia, unspecified [facility] 2025-02-19 10:53 Type 2 diabetes mellitus with h yperglycemia [email or web address] 2025-02-19 10:53 Type 2 diabetes mellitus withou t complications [facility] 10:53 Urinary tract infection, site n ot specified [email or web address] 2025-02-19 10:53 Nausea with vomiting, unspecifi ed [facility] 2025-02-19 10:53 [employer] (current) use of [employer] 2025-02-20 00:03 Malignant neoplasm of trachea [employer] 2025-02-20 09:32 Malignant neoplasm of trachea [employer] 2025-02-20 09:32 Anemia, unspecified [facility] [facility] 2025-02-20 09:32 Type 2 diabetes mellitus with h yperglycemia [email or web address] 2025-02-20 09:32 Type 2 diabetes mellitus withou t complications [email or web address] 2025-02-20 09:32 Urinary tract infection, site n ot specified [email or web address] 2025-02-20 09:32 Nausea with vomiting, unspecifi ed [employer] 2025-02-20 09:32 shelter (current) use of insu [employer] 2025-02-20 11:35 Malignant neoplasm of trachea W [employer] 2025-02-20 11:35 Anemia, unspecified [facility] [facility] 2025-02-20 11:35 Type 2 diabetes mellitus with h yperglycemia [employer] 2025-02-20 11:35 Type 2 diabetes mellitus withou t complications [employer] 2025-02-20 11:35 Urinary tract infection, site n ot specified [employer] 2025-02-20 11:35 Nausea with vomiting, unspecifi ed [email or web address] 2025-02-20 11:35 shelter (current) use of [employer] 2025-02-20 13:44 Malignant neoplasm of trachea [employer] 2025-02-20 13:44 Anemia, unspecified [facility] [facility] 2025-02-20 13:44 Type 2 diabetes mellitus with h yperglycemia [employer] 2025-02-20 13:44 Type 2 diabetes mellitus withou t complications [email or web address] 2025-02-20 13:44 Urinary tract infection, site n ot specified [employer] 2025-02-20 13:44 Nausea with vomiting, unspecifi ed [email or web address] 2025-02-20 13:44 shelter (current) use of [employer] 2025-02-20 14:51 Hypotension, unspecified [employer] 2025-02-20 14:51 Weakness [employer] 2025-02-21 08:44 Malignant neoplasm of trachea [employer] 2025-02-21 08:44 Anemia, unspecified [facility] [facility] 2025-02-21 08:44 Type 2 diabetes mellitus with h yperglycemia [employer] 2025-02-21 08:44 Type 2 diabetes mellitus withou t complications [employer] 2025-02-21 08:44 Urinary tract infection, site n ot specified [employer] 2025-02-21 08:44 Nausea with vomiting, unspecifi ed [employer] 2025-02-21 08:44 [employer] (current) use of insu [employer] 2025-02-21 08:59 Malignant neoplasm of trachea [employer] [facility] 2025-02-21 08:59 Anemia, unspecified [facility] [facility] 2025-02-21 08:59 Type 2 diabetes mellitus with h yperglycemia [employer] [facility] 2025-02-21 08:59 Type 2 diabetes mellitus withou t complications [facility] [employer] [facility] 2025-02-21 08:59 Urinary tract infection, site n ot specified [email or web address] 2025-02-21 08:59 Nausea with vomiting, unspecifi ed [employer] [facility] 2025-02-21 08:59 [employer] (current) use of [employer] 2025-02-21 11:14 Malignant neoplasm of trachea [employer] [facility] 2025-02-21 11:14 Anemia, unspecified [facility] [facility] 2025-02-21 11:14 Type 2 diabetes mellitus with h yperglycemia [email or web address] 2025-02-21 11:14 Type 2 diabetes mellitus withou t complications [facility] [employer] [facility] 2025-02-21 11:14 Urinary tract infection, site n ot specified [email or web address] 2025-02-21 11:14 Nausea with vomiting, unspecifi ed [employer] [facility] 2025-02-21 11:14 Diarrhea, unspecified [facility] 2025-02-21 11:14 shelter (current) use of [employer] 2025-02-21 11:20 Malignant neoplasm of trachea [employer] [facility] 2025-02-21 11:20 Anemia, unspecified [facility] [facility] 2025-02-21 11:20 Type 2 diabetes mellitus with h yperglycemia [email or web address] 2025-02-21 11:20 Type 2 diabetes mellitus withou t complications [email or web address] 2025-02-21 11:20 Urinary tract infection, site n ot specified [email or web address] 2025-02-21 11:20 Nausea with vomiting, unspecifi ed [email or web address] 2025-02-21 11:20 Diarrhea, unspecified [facility] 2025-02-21 11:20 shelter (current) use of insu [employer] 2025-02-22 00:00 Type 2 diabetes mellitus with h yperglycemia [employer] [facility] 2025-02-22 00:00 Type 2 diabetes mellitus withou t complications [facility] [employer] [facility] 2025-02-22 00:00 [facility] 2025-02-22 00:00 [employer] (current) use of [employer] 2025-02-26 08:18 Malignant neoplasm of trachea [employer] [facility] 2025-02-26 08:18 Anemia, unspecified [facility] [facility] 2025-02-26 08:18 Type 2 diabetes mellitus with h yperglycemia [employer] [facility] 2025-02-26 08:18 Type 2 diabetes mellitus withou t complications [facility] [employer] [facility] 2025-02-26 08:18 Urinary tract infection, site n ot specified [email or web address] 2025-02-26 08:18 Nausea with vomiting, unspecifi ed [employer] [facility] 2025-02-26 08:18 Diarrhea, unspecified [place] [facility] 2025-02-26 08:18 shelter (current) use of [employer] 2025-02-26 08:24 Malignant neoplasm of trachea [employer] [facility] 2025-02-26 08:24 Anemia, unspecified [facility] [facility] 2025-02-26 08:24 Type 2 diabetes mellitus with h yperglycemia [email or web address] 2025-02-26 08:24 Type 2 diabetes mellitus withou t complications [facility] [employer] [facility] 2025-02-26 08:24 Urinary tract infection, site n ot specified [email or web address] 2025-02-26 08:24 Nausea with vomiting, unspecifi ed [email or web address] 2025-02-26 08:24 Diarrhea, unspecified [facility] 2025-02-26 08:24 shelter (current) use of [employer] 2025-02-26 08:25 Malignant neoplasm of trachea [employer] [facility] 2025-02-26 08:25 Anemia, unspecified [facility] [facility] 2025-02-26 08:25 Type 2 diabetes mellitus with h yperglycemia [facility] 08:25 Type 2 diabetes mellitus withou t complications [facility]26 08:25 Urinary tract infection, site n ot specified [facility] [employer] [facility] 2025-02-26 08:25 Nausea with vomiting, unspecifi ed [facility] [employer] [facility] 2025-02-26 08:25 Diarrhea, unspecified [facility] 2025-02-26 08:25 [employer] (current) use of insu swati [email or web address] 2025-02-26 08:55 Malignant neoplasm of trachea [employer] [facility] 2025-02-26 08:55 Anemia, unspecified [facility] [facility] 2025-02-26 08:55 Type 2 diabetes mellitus with h yperglycemia [facility]25-[facility]26 08:55 Type 2 diabetes mellitus withou t complications [facility] [employer] [facility] 2025-02-26 08:55 Urinary tract infection, site n ot specified [email or web address] 2025-02-26 08:55 Nausea with vomiting, unspecifi ed [facility] [employer] [facility] 2025-02-26 08:55 Diarrhea, unspecified [facility] 2025-02-26 08:55 [employer] (current) use of [email or web address] 2025-02-26 09:56 Malignant neoplasm of trachea [employer] [facility] 2025-02-26 09:56 Anemia, unspecified [place] [facility] 2025-02-26 09:56 Type 2 diabetes mellitus with h yperglycemia [facility] 2025-[facility]26 09:56 Type 2 diabetes mellitus withou t complications [facility] [employer] [facility] 2025-02-26 09:56 Urinary tract infection, site n ot specified [email or web address] 2025-02-26 09:56 Nausea with vomiting, unspecifi ed [email or web address] 2025-02-26 09:56 Diarrhea, unspecified [facility] 2025-02-26 09:56 shelter (current) use of [employer] 2025-02-28 08:39 Malignant neoplasm of trachea [employer] 2025-02-28 08:39 Anemia, unspecified [facility] [facility] 2025-02-28 08:39 Type 2 diabetes mellitus with h yperglycemia [facility] [employer] [facility] 2025-02-28 08:39 Type 2 diabetes mellitus withou t complications [facility] 2025-02-28 08:39 Urinary tract infection, site n ot specified [facility] [employer] [facility] 2025-02-28 08:39 Nausea with vomiting, unspecifi ed [facility] [employer] [facility] 2025-02-28 08:39 Diarrhea, unspecified [place] [facility] 2025-02-28 08:39 [employer] (current) use of [email or web address] 2025-02-28 09:15 Malignant neoplasm of trachea [employer] [facility] 2025-02-28 09:15 Anemia, unspecified [place] [facility] 2025-02-28 09:15 Type 2 diabetes mellitus with h yperglycemia [facility] [employer] [facility] 2025-02-28 09:15 Type 2 diabetes mellitus withou t complications [facility] [employer] [facility] 2025-02-28 09:15 Urinary tract infection, site n ot specified [email or web address] 2025-02-28 09:15 Nausea with vomiting, unspecifi ed [facility]25-[facility]28 09:15 Diarrhea, unspecified [place] [facility] 2025-02-28 09:15 shelter (current) use of [email or web address] 2025-02-28 09:21 Malignant neoplasm of trachea [employer] [facility] 2025-02-28 09:21 Anemia, unspecified [facility] [facility] 2025-02-28 09:21 Type 2 diabetes mellitus with h yperglycemia [facility] 2025-[facility]28 09:21 Type 2 diabetes mellitus withou t complications [facility] [employer] [facility] 2025-02-28 09:21 Urinary tract infection, site n ot specified [email or web address] 2025-02-28 09:21 Nausea with vomiting, unspecifi ed [facility] [employer] [facility] 2025-02-28 09:21 Diarrhea, unspecified [facility] 2025-02-28 09:21 shelter (current) use of [employer] 2025-02-28 14:39 [facility] 2025-[facility]-28 14:39 Anemia, unspecified [place] [facility] 2025-02-28 14:39 Type 2 diabetes mellitus with h yperglycemia [facility] 2025-02-28 14:39 Type 2 diabetes mellitus withou t complications [facility] 2025-02-28 14:39 Urinary tract infection, site n ot specified [facility] 2025-02-28 14:39 Nausea with vomiting, unspecifi ed [facility] 2025-02-28 14:39 Diarrhea, unspecified [place] [facility] 2025-02-28 14:39 [employer] (current) use of insu [email or web address] 2025-02-28 14:41 [facility] 2025-02-28 14:41 Anemia, unspecified [place] [facility] 2025-02-28 14:41 Type 2 diabetes mellitus with h yperglycemia [facility] 2025-02-28 14:41 Type 2 diabetes mellitus withou t complications [facility] 2025-02-28 14:41 Urinary tract infection, site n ot specified [facility] 2025-02-28 14:41 Nausea with vomiting, unspecifi ed [facility] 2025-02-28 14:41 Diarrhea, unspecified [facility] 2025-02-28 14:41 shelter (current) use of [email or web address] 2025-03-05 08:32 Malignant [facility] trachea [facility] [employer] [facility] 2025-03-05 08:32 Anemia, unspecified [place] [facility] 2025-03-05 08:32 Type 2 diabetes mellitus with h yperglycemia [facility] 2025-[facility]05 08:32 Type 2 diabetes mellitus withou t complications [facility] 2025-03-05 08:32 Urinary tract infection, site n ot specified [facility] [employer] [facility] 2025-03-05 08:32 Nausea with vomiting, unspecifi ed [facility] [employer] [facility] 2025-03-05 08:32 Diarrhea, unspecified [facility] 2025-03-05 08:32 [employer] (current) use of [employer] [facility] 2025-03-05 08:33 Malignant neoplasm of trachea [facility] 2025-03-05 08:33 Anemia, unspecified [facility] 2025-03-05 08:33 Type 2 diabetes mellitus with h yperglycemia [facility] 2025-03-05 08:33 Type 2 diabetes mellitus withou t complications [facility] 2025-03-05 08:33 Urinary tract infection, site n ot specified [facility] 2025-03-05 08:33 Nausea with vomiting, unspecifi ed [facility] 2025-03-05 08:33 [facility], [facility]25-03-05 08:33 shelter (current) use of insu [employer] [facility] 2025-03-05 11:31 Malignant [facility]oplasm of trachea [facility] 2025-03-05 11:31 Anemia, unspecified [facility] 2025-03-05 11:31 Other pulmonary embolism withou t acute cor pulmonale [facility] 2025-03-05 11:31 Other specified diseases of upp er respiratory tract [facility] 2025-03-05 11:31 Pain in right knee [facility] 2025-03-05 11:31 Pain in left knee [facility] 2025-03-05 11:31 Encounter for genera l adult medical examination without abnormal findings [facility] [employer] [facility] 2025-03-05 11:31 Encounter for antineoplastic ch emotherapy [facility] 2025-03-05 11:31 Gastrostomy status [facility] 2025-03-05 11:35 Malignant [facility] trachea [facility] 2025-03-05 11:35 Anemia, unspecified [facility] 2025-03-05 11:35 Type 2 diabetes mellitus with h yperglycemia [facility] 2025-03-05 11:35 Type 2 diabetes mellitus withou t complications [facility] 2025-03-05 11:35 Urinary tract infection, site n ot specified [facility] [employer] [facility] 2025-03-05 11:35 Nausea with vomiting, unspecifi ed [facility] 2025-03-05 11:35 Diarrhea, unspecified [place] [facility] 2025-03-05 11:35 [employer] (current) use of insu [email or web address] 2025-03-05 11:37 Malignant [facility]oplasm of trachea [facility] [employer] [facility] 2025-03-05 11:37 Anemia, unspecified [place] [facility] 2025-03-05 11:37 Type 2 diabetes mellitus with h yperglycemia [facility] [employer] [facility] 2025-03-05 11:37 Type 2 diabetes mellitus withou t complications [facility] 2025-03-05 11:37 Urinary tract infection, site n ot specified [email or web address] 2025-03-05 11:37 Nausea with vomiting, unspecifi ed [facility] [employer] [facility] 2025-03-05 11:37 Diarrhea, unspecified [facility] [facility] 2025-03-05 11:37 [employer] (current) use of insu [email or web address] 2025-03-06 09:17 Malignant neoplasm of trachea [employer] [facility] 2025-03-06 09:17 Anemia, unspecified [place] [facility] 2025-03-06 09:17 Type 2 diabetes mellitus with h yperglycemia [facility] 2025-03-06 09:17 Type 2 diabetes mellitus withou t complications [facility] [employer] [facility] 2025-03-06 09:17 Urinary tract infection, site n ot specified [email or web address] 2025-03-06 09:17 Nausea with vomiting, unspecifi ed [facility] [employer] [facility] 2025-03-06 09:17 Diarrhea, unspecified [place] [facility] 2025-03-06 09:17 shelter (current) use of [email or web address] 2025-03-07 08:51 Malignant neoplasm of trachea [employer] 2025-03-07 08:51 Anemia, unspecified [place] [facility] 2025-03-07 08:51 Type 2 diabetes mellitus with h yperglycemia [facility] 2025-03-07 08:51 Type 2 diabetes mellitus withou t complications [facility] [employer] [facility] 2025-03-07 08:51 Urinary tract infection, site n ot specified [email or web address] 2025-03-07 08:51 Nausea with vomiting, unspecifi ed [facility] [employer] [facility] 2025-03-07 08:51 Diarrhea, unspecified [facility] 2025-03-07 08:51 [employer] (current) use of insu [employer] [facility] [employer] [facility] 2025-03-07 16:05 [facility] [facility]05 Anemia, unspecified [facility] 2025-03-07 16:05 Type 2 diabetes mellitus with h [facility]perglycemia [facility] [employer] [facility] 2025-03-07 16:05 Type 2 diabetes mellitus withou t complications [facility] 2025-03-07 16:05 Urinary tract infection, site n ot specified [facility] [employer] [facility] 2025-03-07 16:05 Nausea with vomiting, unspecifi ed [facility] [employer] [facility] 2025-03-07 16:05 Diarrhea, unspecified [facility] 2025-03-07 16:05 [employer] (current) use of insu swati [facility] [employer] [facility] 2025-03-07 16:19 Malignant neoplasm of trachea [employer] [facility] 2025-03-07 16:19 Anemia, unspecified [facility] 2025-03-07 16:19 Type 2 diabetes mellitus with h yperglycemia [facility] [employer] [facility] 2025-03-07 16:19 Type 2 diabetes mellitus withou t complications [facility] [employer] [facility] 2025-03-07 16:19 Hypoglycemia, unspecified [facility] 2025-03-07 16:19 Hypotension, unspecified [facility] [employer] [facility] 2025-03-07 16:19 Bronchitis, not specified as ac crow or chronic [facility] 2025-03-07 16:19 [facility]asm [facility]25-03-07 16:19 Urinary tract infection, site n ot specified [facility] [employer] [facility] 2025-03-07 16:19 [facility]optysis [facility] [employer] [facility] 2025-03-07 16:19 Other specified [facility] 2025-03-07 16:19 Cough, unspecified [facility] 2025-03-07 16:19 Shortness of breath [facility] 2025-03-07 16:19 Other forms [facility]pnea [facility] 2025-03-07 16:19 [facility]zing [facility] 2025-03-07 16:19 Other chest pain [facility] 2025-03-07 16:19 Unspecified abdominal pain [facility] 2025-03-07 16:19 Nausea with vomiting, unspecifi ed [facility] [employer] [facility] 2025-03-07 16:19 Dysphagia, unspecified [facility] [employer] [facility] 2025-03-07 16:19 Diarrhea, unspecified [facility] 2025-03-07 16:19 Pain, unspecified [facility] [employer] [facility] 2025-03-07 16:19 Weakness [facility] [employer] [facility] 2025-03-07 16:19 Hyperglycemia, unspecified [facility] 2025-03-07 16:19 shelter (current) use of [email or web address] 2025-03-08 08:23 Malignant ne[facility]a [facility] 2025-03-08 08:23 Anemia, unspecified [facility] 2025-03-08 08:23 Type 2 diabetes mellitus with h yperglycemia [facility] 2025-03-08 08:23 Type 2 diabetes mellitus withou t complications [facility] 2025-03-08 08:23 Urinary tract infection, site n ot specified [facility] 2025-03-08 08:23 Nausea with vomiting, unspecifi ed [facility] 2025-03-08 08:23 Diarrhea, unspecified [facility] 2025-03-08 08:23 [employer] (current) use of [employer] Results/Labs test date facility value unit notes Result panel 1 SARS-CoV-2 -RESP PCR PANEL 2024-12-12 19:23 [employer] NOT DETECTED (missing) A negative test result for this test indicates that SARS-CoV-2 RNA was not present in the specimen above the limit of detection. Testing performed on the [employer] RP2.1 Panel, a multiplexed nucleic acid repiratory panel. Negative results do not preclude infection with SARS-CoV-2 virus and should not be the sole basis of a patient management decision. In some patients repeat testing at various time points may be necessary for virus detection. False-negative results may arise from improper sample collection, degradation of viral RNA during shipping or storage, the presence of PCR inhibitors, and/or mutation in the SARS-CoV-2 virus. INFLUENZA A- RESP PCR PANEL 2024-12-12:23 [facility] NOT DETECTED (missing) Influenza A including subtypes H1, H3, and H1-2009 not detected by the [employer] RP2.1 Panel, a multiplexed nucleic acid test intended for the simultaneous qualitative detection and differentiation of nucleic acids from multiple viral and bacterial respiratory organisms. B. PARAPERTUSSIS- RESP PCR DEL RIO 2024-12-12 19:23 [facility] NOT DETECTED (missing) Negative results for this organism do not preclude infection with this organism and may require additional laboratory testing (e.g., bacterial and viral culture, immunofluorescence, and radiography) when evaluating a patient with possible respiratory tract infection. B. PERTUSSIS- RESP PCR PANEL 2024-12-12 19:23 [facility] NOT DETECTED (missing) Negative results for this organism do not preclude infection with this organism and may require additional laboratory testing (e.g., bacterial and viral culture, immunofluorescence, and radiography) when evaluating a patient with possible respiratory tract infection. C. PNEUMONIAE- RESP PCR PANEL 2024-12-12 19:23 [facility] NOT DETECTED (missing) Negative results for this organism do not preclude infection with this organism and may require additional laboratory testing (e.g., bacterial and viral culture, immunofluorescence, and radiography) when evaluating a patient with possible respiratory tract infection. M. PNEUMONIAE- RESP PCR PANEL 2024-12-12 19:23 [facility] NOT DETECTED (missing) Negative results for this organism do not preclude infection with this organism and may require additional laboratory testing (e.g., bacterial and viral culture, immunofluorescence, and radiography) when evaluating a patient with possible respiratory tract infection. CORONAVIRUS 229E-RESP PCR 2024-12-12 19:23 [facility] NOT DETECTED (missing) Negative results in the setting ofa respiratory illness may be due to infection with pathogens not detected by this test, or lower respiratory tract infection that may not be detected by nasopharyngeal specimen. CORONAVIRUS HKU1-RESP PCR 2024-12-12 19:23 [facility] NOT DETECTED (missing) Negative results in the setting ofa respiratory illness may be due to infection with pathogens not detected by this test, or lower respiratory tract infection that may not be detected by nasopharyngeal specimen. CORONAVIRUS [id number] PCR 2024-12-12 19:23 [facility] NOT DETECTED (missing) Negative results in the setting ofa respiratory illness may be due to infection with pathogens not detected by this test, or lower respiratory tract infection that may not be detected by nasopharyngeal specimen. CORONAVIRUS [id number] PCR 2024-12-12 19:23 [facility] NOT DETECTED (missing) Negative results in the setting ofa respiratory illness may be due to infection with pathogens not detected by this test, or lower respiratory tract infection that may not be detected by nasopharyngeal specimen. HUMAN METAPNEUMOVIRUS 2024-12-12 19:23 [facility] NOT DETECTED (missing) Negative results in the setting ofa respiratory illness may be due to infection with pathogens not detected by this test, or lower respiratory tract infection that may not be detected by nasopharyngeal specimen. INFLUENZA B - RESP PCR PANEL 2024-12-12 19:23 [facility] NOT DETECTED (missing) Negative results in the setting ofa respiratory illness may be due to infection with pathogens not detected by this test, or lower respiratory tract infection that may not be detected by nasopharyngeal specimen. PARAINFLUENZA VIRUS 1 2024-12-12 19:23 [facility] NOT DETECTED (missing) Negative results in the setting ofa respiratory illness may be due to infection with pathogens not detected by this test, or lower respiratory tract infection that may not be detected by nasopharyngeal specimen. PARAINFLUENZA VIRUS 2 2024-12-12 19:23 [facility] NOT DETECTED (missing) Negative results in the setting ofa respiratory illness may be due to infection with pathogens not detected by this test, or lower respiratory tract infection that may not be detected by nasopharyngeal specimen. PARAINFLUENZA VIRUS 3 2024-12-12 19:23 [facility] NOT DETECTED (missing) Negative results in the setting ofa respiratory illness may be due to infection with pathogens not detected by this test, or lower respiratory tract infection that may not be detected by nasopharyngeal specimen. PARAINFLUENZA VIRUS 4 2024-12-12 19:23 [facility] NOT DETECTED (missing) Negative results in the setting ofa respiratory illness may be due to infection with pathogens not detected by this test, or lower respiratory tract infection that may not be detected by nasopharyngeal specimen. RHINOVIRUS/ENTEROVI CHETAN 2024-12-12 19:23 [facility] NOT DETECTED (missing) Negative results in the setting ofa respiratory illness may be due to infection with pathogens not detected by this test, or lower respiratory tract infection that may not be detected by nasopharyngeal specimen. RSV- RESP PCR PANEL 2024-12-12 19:23 [facility] NOT DETECTED (missing) Negative results in the setting ofa respiratory illness may be due to infection with pathogens not detected by this test, or lower respiratory tract infection that may not be detected by nasopharyngeal specimen. ADENOVIRUS - RESP PCR PANEL 2024-12-12 19:23 [facility] NOT DETECTED (missing) Y Negative results in the setting ofa respiratory illness may be due to infection with pathogens not detected by this test, or lower respiratory tract infection that may not be detected by nasopharyngeal specimen. Result panel 2 NUCLEATED RED BLOOD CELLS AUTO 2024-12-12 19:24 [facility] 0.0 /100wbc (missing) EOSINOPHILS # (AUTO) 2024-12-12 19:24 [facility] 0.0 10 3/ul (missing) NRBC ABSOLUTE COUNT (AUTO) 2024-12-12 19:24 [facility] 0.00 x10 3/ul (missing) BASOPHILS # (AUTO) 2024-12-12 19:24 [facility] 0.1 10 3/ul (missing) BILIRUBIN,TOTAL 2024-12-12 19:24 [facility] 0.2 mg /dl As of May 2023 testing method has changed, this may include reference ranges. LYMPHOCYTES # (AUTO) 2024-12-12 19:24 [facility] 0.3 10 3/ul (missing) CREATININE 2024-12-12 19:24 [facility] 0.5 mg/dl As of May 2023 testing method has changed, this may include reference ranges. MONOCYTES # (AUTO) 2024-12-12 19:24 [facility] 0.8 10 3/ul (missing) ALBUMIN/GLOBULIN RATIO 2024-12-12 19:24 [facility] 1.4 (missing) (missing) LACTIC ACID, VENOUS 2024-12-12 19:24 [facility] 1.6 mmol/l Y As of May 2023 testing method has changed, this may include reference ranges. HGB - HEMOGLOBIN 2024-12-12 19:24 [facility] 10.4 g /dl (missing) CHLORIDE 2024-12-12 19:24 [facility] 100 mmol/l As of May 2023 testing method has changed, this may include reference ranges. GFR - MDRD 2024-12-12 19:24 [facility] (jihan givens) Social History date description facility
--- NOTE | 2025-03-10 18:00 | ED Physician Documentation ---
PD HPI URI Stated complaint Stated Complaint: SOA Chief complaint Chief Complaint: Resp History obtained from History obtained from: Patient and Family History of Present Illness Timing - onset: How many days ago (3-4) Timing duration: Days Timing details: Gradual onset and Still present (Increasing cough with yellow sputum and feeling of dyspnea and wheezing over the last 3 to 4 days, feeling chilled but no measured fevers. Oximetry at home 95%. Has been doing her usual Xopenex nebulizer and budesonide inhalers. 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 Is being treated by oncology. History of asthma. She states PE last fall and is on DOAC medication however ran out a week ago and her insurance is not covering it.) Recently seen: Clinic (Removal of tracheal stent by pulmonology about a month ago.) Meds/Allgy Home Medications Ambulatory Orders Medication Instructions Recorded Confirmed sodium chloride 3 % for 4 ml inhalation BID 09/05/24 03/10/25 nebulization prochlorperazine maleate 10 mg 10 mg PO TID PRN nausea and 10/25/24 03/10/25 tablet (Compazine) vomiting #90 tabs naloxone 4 mg/actuation nasal 4 mg intranasal Q2M PRN opioid 10/30/24 03/10/25 spray (Narcan) overdose #2 ea budesonide-formoterol HFA 80 2 puff inhalation BID #10.2 grams 11/07/24 03/10/25 mcg-4.5 mcg/actuation aerosol inhaler (Symbicort) loperamide 2 mg tablet (Imodium 2 mg PO Q4H PRN diarrhea 11/21/24 03/10/25 A-D) lancets 30 gauge (CareTouch Twist #100 ea 11/23/24 03/02/25 Lancet) pen needle, diabetic 31 gauge x #100 ea 11/23/24 03/02/25 3/16" (Comfort EZ Pen [place]) apixaban 2.5 mg tablet 2.5 mg PO BID #60 tabs 11/29/24 03/10/25 insulin lispro 100 unit/mL 1 - 4 unit (0.01 - 0.04 mL) subcut 12/03/24 03/10/25 subcutaneous pen (Humalog KwikPen TID #15 mL (U-100) Insulin) lidocaine HCl 2 % mucosal solution 1 applic mucous membrane TID PRN 12/05/24 03/10/25 (Lidocaine Viscous) pain #100 mL lidocaine 5 % topical patch 1 patch topical QDAY #30 ea 12/13/24 03/10/25 lidocaine-prilocaine 2.5 %-2.5 % 30 g topical ONCE PRN pain #30 01/01/25 03/10/25 topical cream grams benzonatate 200 mg capsule See Rx Instructions .Route 01/10/25 03/10/25 .COMPLEX #30 caps blood sugar diagnostic (FreeStyle #100 ea 01/10/25 03/02/25 Lite Strips) olanzapine 5 mg tablet 5 mg PO QPM Nausea #60 tabs 01/10/25 03/10/25 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 sensor (FreeStyle #6 ea 01/17/25 03/02/25 Deep 3 Sensor device) diphenoxylate-atropine 2.5 1 tab PO QID PRN diarrhea #60 tabs 01/18/25 03/10/25 mg-0.025 mg tablet (Lomotil) 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 sensor (FreeStyle #3 ea 01/22/25 03/02/25 Deep 3 Plus Sensor device) hydromorphone 1 mg/mL oral liquid 3 - 4 mg (3 - 4 mL) PO Q4H PRN 01/24/25 03/10/25 pain #473 mL ondansetron 8 mg disintegrating 8 mg PO Q8H PRN nausea and 01/24/25 03/10/25 tablet vomiting #90 tabs 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,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,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 ea 01/26/25 03/02/25 (FreeStyle Deep 3 [place]) levalbuterol HCl 1.25 mg/3 mL 1.25 mg inhalation Q12H 02/07/25 03/10/25 solution for nebulization miconazole nitrate 200 mg/5 gram 1 appful vaginal 02/07/25 03/02/25 (4 %) vaginal cream famotidine 40 mg/5 mL (8 mg/mL) 40 mg (5 mL) PO QDAY #150 mL 02/08/25 03/10/25 oral suspension guaifenesin 100 mg/5 mL oral liquid 200 mg PO Q4H PRN congestion 02/10/25 03/10/25 insulin glargine 100 unit/mL (3 5 - 10 unit subcut DAILY 02/10/25 03/10/25 mL) subcutaneous pen (Lantus Solostar U-100 Insulin) gabapentin 300 mg/6 mL (6 mL) oral 200 - 300 mg PO TID 02/12/25 03/10/25 solution acetaminophen 500 mg tablet 1,000 mg (2 x 500 mg) PO TID PRN 02/19/25 03/10/25 pain #180 tabs [id number] 1 cap PO BID #60 caps 02/19/25 03/10/25 12,000-38,000-60,000 unit capsule,delayed rel (Creon) mirtazapine 7.5 mg tablet 15 mg (2 x 7.5 mg) feeding tube HS 02/19/25 03/02/25 #90 tabs metformin 1,000 mg tablet 500 mg (1/2 x 1,000 mg) feeding 02/21/25 03/10/25 tube HS #180 tabs alprazolam 0.5 mg disintegrating 0.5 mg PO BID-TID PRN Anxiety #60 03/02/25 03/10/25 tablet tabs Allergies Allergies Allergy/AdvReac Type Severity Reaction Status Date / Time oxycodone Allergy Severe Rash Verified 03/10/25 17:52 Sulfa (Sulfonamide Allergy Rash Verified 03/10/25 17:52 Antibiotics) paclitaxel AdvReac Severe Respiratory Verified 03/10/25 17:52 codeine AdvReac Emesis Verified 03/10/25 17:52 PFSH Active Problems All Active Problems (Updated 03/10/25 @ 22:10 by Solomon Grande MD) Aspiration pneumonia (Acute) Acute hypokalemia (Acute) RAD (reactive airway disease) with wheezing (Acute) Productive cough (Acute) Acute dyspnea (Acute) Hiccups (Acute) Chronic pain (Acute) Nausea and vomiting (Acute) EMILY (acute kidney injury) (Acute) Status post chemotherapy (Chronic) Shortness of breath (Acute) Joint pain (Acute) Anemia (Acute) Fatigue due to treatment (Acute) Drug-induced diarrhea (Acute) Electrolyte and fluid disorder (Acute) 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) Diabetes mellitus type 2, insulin dependent (Chronic) Major depression (Chronic) Encounter for education about infusion care (Acute) Throat pain (Acute) Right pulmonary embolus (Acute) Type 2 diabetes mellitus with diabetic neuropathy (Chronic) GERD without esophagitis (Chronic) Anemia associated with chemotherapy (Chronic) Anxiety as acute reaction to gross stress (Acute) Tobacco use disorder, moderate, in sustained remission, dependence (Chronic) Palliative care patient (Acute) Counseling regarding advanced directives and goals of care (Acute) Joint pain following chemotherapy (Acute) Chronic pancreatitis (Acute) Severe protein-calorie malnutrition (Chronic) Alcohol dependence, in remission (Chronic) G tube feedings (Acute) Healthcare maintenance (Acute) Cancer associated pain (Chronic) Tracheal stenosis (Chronic) Encounter for antineoplastic chemotherapy (Acute) Medical History Medical History (Updated 03/10/25 @ 22:10 by Solomon Grande MD) Acidosis, lactic Nausea GERD (gastroesophageal reflux disease) Anemia Hypomagnesemia Type 2 diabetes mellitus with hyperglycemia Weight loss Diabetic eye exam 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 Numbness and tingling sensation of skin (04/20/24) Recurrent UTI Dyspnea and respiratory abnormalities Chronic cough (03/09/24) Mixed hyperlipidemia (03/22/24) Tracheal stenosis after procedure Type 2 diabetes mellitus with hyperglycemia, without long-term current use of insulin (03/22/24) Seasonal allergies (03/09/24) Atrophy of pancreas Tinnitus, bilateral (03/09/24) Hypochloremia (03/22/24) Bulimia nervosa (03/09/24) Anorexia nervosa (03/09/24) Alcohol abuse, episodic (03/09/24) Knee cartilage, torn, left Surgical History Surgical History H/O knee surgery 3 in the S/P bronchoscopy with biopsy History of reversal of tubal ligation History of tubal ligation History of laparoscopy Family History Family History Other Family history unknown Social History Social History Smoking Status: Former smoker If you are a former smoker, when did you quit? (Date/Year): 2010 Number of Years Smoked: 20 How many cigarettes a day do you smoke? (20 cigarettes=1 Pk): 20 Second hand tobacco smoke exposure: Yes Do you dip or chew tobacco?: No Do you vape?: No Patient requests smoking cessation consult: No Initiate information on smoking cessation: No Living arrangement: At home Marital Status: Living Condition: With spouse/s.o. 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 She does have intermittent harsh cough with production of yellowish thicker sputum. No noted blood. Lymph no lymphadenopathy noted Respiratory breath sounds equal bilaterally, normal respiratory effort, wheezing noted (expiratory wheezes) and (scattered wheezes), rales noted (base) (left) and no retractions Cardiovascular normal heart rate noted, regular rhythm noted and no edema Gastrointestinal abdomen soft to palpation and nontender to palpation Extremities no tenderness and full ROM Frail extremities with very low muscle mass Psychiatry mental status grossly normal, oriented x3, thought process normal and cooperative Results Vitals Vitals: Vital Signs - 24 hr 03/10/25 17:52 03/10/25 18:32 03/10/25 19:11 Temperature 36.5 C Temperature Source Tympanic Pulse Rate 105 H 88 Respiratory Rate 24 20 Blood Pressure 117/62 O2 Saturation 94 Oxygen Delivery Method Room Air O2 Source Room air Room air Pain Intensity 6 04/20/25 20:20 Temperature Temperature Source Pulse Rate 100 Respiratory Rate 24 Blood Pressure 104/67 O2 Saturation 93 Oxygen Delivery Method O2 Source Pain Intensity 5 Oxygen O2 Source Room air Labs Labs: Microbiology 03/10/25 19:20 Gram Stain - Final Sputum Laboratory Tests 03/10/25 18:35 WBC 5.5 RBC 2.33 L Hgb 7.1 L Hct 21.0 L MCV 90.1 MCH 30.5 MCHC 33.8 RDW 15.6 H Plt Count 148 MPV 9.4 Neut # (Auto) Not Reportable Lymph # (Auto) Not Reportable [place] # (Auto) Not Reportable Eos # (Auto) Not Reportable Baso # (Auto) Not Reportable Absolute Nucleated RBC Not Reportable Total Counted 100 Band Neuts % (Manual) 6 Abnorm Lymph % (Manual) 0 Nucleated RBC % Not Reportable Neutrophils # (Manual) 5.1 Lymphocytes # (Manual) 0.2 L Monocytes # (Manual) 0.1 Eosinophils # (Manual) 0.1 Basophils # (Manual) 0.0 Differential Comment MANUAL DIFFERENTIAL Platelet Estimate NORMAL (130-450,000) Platelet Morphology NORMAL APPEARANCE RBC Morph Micro Appear NORMAL APPEARANCE Sodium 133 L Potassium 2.8 L Chloride 96 L Carbon Dioxide 29 Anion Gap 8.0 BUN 12 Creatinine 0.5 L Estimated GFR (MDRD) 127 Glucose 173 H Calcium 8.3 L Total Bilirubin 0.3 AST 15 ALT 10 Alkaline Phosphatase 90 Total Protein 6.1 L Albumin 3.0 L Globulin 3.1 Albumin/Globulin Ratio 1.0 Lipase < 10 L Nasal Adenovirus (PCR) NOT DETECTED Nasal B. parapertussis DNA (PCR) NOT DETECTED Nasal Coronavir 229E PCR NOT DETECTED Nasal Coronavir HKU1 PCR NOT DETECTED Nasal Coronavir NL63 PCR NOT DETECTED Nasal Coronavir OC43 PCR NOT DETECTED Nasal Enterovir/Rhinovir PCR NOT DETECTED Nasal Influenza B PCR NOT DETECTED Nasal Influenza A PCR NOT DETECTED Nasal Parainfluen 1 PCR NOT DETECTED Nasal Parainfluen 2 PCR NOT DETECTED Nasal Parainfluen 3 PCR NOT DETECTED Nasal Parainfluen 4 PCR NOT DETECTED Nasal RSV (PCR) NOT DETECTED Nasal B.pertussis DNA PCR NOT DETECTED Nasal C.pneumoniae (PCR) NOT DETECTED [facility] Human Metapneumo PCR NOT DETECTED Nasal M.pneumoniae (PCR) NOT DETECTED Nasal SARS-CoV-2 (PCR) NOT DETECTED Rads (name of study) chest xray: Relevant Findings:: Final report received and EMP independent interpretation of test (patchy basilar opacities most likely c/w pneumonia.) PD Medical Decision Making ED course Complexity details: re-evaluated patient (givning nebulier treatments as well as steroids. Presume to give antibiotics as CXR just done showing likely infiltrates. Care to Dr. Grande. ), considered differential (concern for pneumonia given cough, dyspnea, and productive cough. Had tracheal stent until this past month. Could be easier for aspiration or infectious causes. ) and d/w patient Discharge Plan Discharge Patient Disposition: [facility] DC/Xfer Condition: Stable Clinical Impression: Acute dyspnea, Productive cough, Acute hypokalemia RAD (reactive airway disease) with wheezing Qualifiers: Asthma severity: unspecified severity Asthma persistence: unspecified Asthma complication type: with acute exacerbation Qualified Code(s): J45.901 - Unspecified asthma with (acute) exacerbation Aspiration pneumonia Qualifiers: Aspiration pneumonia type: unspecified Laterality: unspecified laterality Lung location: unspecified part of lung Qualified Code(s): J69.0 - Pneumonitis due to inhalation of food and vomit
[2025-03-10] MEDS ORDERED: LEVALBUTEROL 1.25 MG/3 ML NEB INH ONE (18:23)
[2025-03-10] MEDS ORDERED: IPRATROPIUM 0.2 MG/ML NEB INH ONE (18:23)
[2025-03-10] MEDS: IPRATROPIUM 0.2 MG/ML NEB INH STA (18:25)
[2025-03-10] MEDS: LEVALBUTEROL 1.25 MG/3 ML NEB INH STA (18:25)
[2025-03-10 18:52] LABS: BASOPHILS % (AUTO) 0.2 %; EOSINOPHILS % (AUTO) 1.3 %; HGB - HEMOGLOBIN 7.1 g/dL (12.0-16.0); LYMPHOCYTES % (AUTO) 4.9 %; MEAN CORPUSCULAR HEMOGLOBIN 30.5 pg (27.0-31.0); MEAN CORPUSCULAR HGB CONC 33.8 g/dL (32.0-36.0); MEAN CORPUSCULAR VOLUME 90.1 fL (81.0-99.0); MEAN PLATELET VOLUME 9.4 fL (7.9-10.8); NEUTROPHILS % (AUTO) 82.2 %; PLT - PLATELET COUNT 148 10^3/uL (130-450); RED BLOOD COUNT 2.33 10^6/uL (4.20-5.40); RED CELL DISTRIBUTION WIDTH 15.6 % (12.0-15.0); WHITE BLOOD COUNT 5.5 x10^3/uL (4.8-10.8)
[2025-03-10 18:54] LABS: ABNORMAL LYMPHS % (MANUAL) 0 %
[2025-03-10] MEDS: DEXAMETHASONE 10 MG/ML VIAL IVP STA (19:02)
[2025-03-10] MEDS: SODIUM CHLORIDE 0.9% 1,000 ML IV STA (19:02)
--- NOTE | 2025-03-10 19:04 | ED Physician Documentation ---
ED Addendum Addendum Addendum: 59-year-old female with past medical significant for tracheal carcinoma status post stent placement presents to the emergency department shortness of air. Tachycardic, low-level tachypnea on arrival but maintaining low but adequate oxygen saturations on room air. Initial report was patient had some mild to moderate wheezing and received breathing treatments and Decadron prior to my evaluation. During my evaluation patient remains somewhat short of breath with crackles in lower lung bases. Labs reviewed, significant hypokalemia with potassium repletion administered. No chest pain reported that would be of concern for cardiac ischemia. She does have history of PE and is not currently anticoagulated and given the remainder of her risk factors I obtained CT angiography which was negative for pulmonary emboli but did show likely aspiration pneumonia. She is covered with Rocephin, Flagyl, azithromycin. Discussed with the telehospitalist service who graciously agreed to hospitalize for further evaluation and treatment. Discharge Plan Discharge Condition: Stable Clinical Impression: Acute dyspnea, Productive cough, RAD (reactive airway disease) with wheezing Prescriptions: No Action lidocaine HCl [Lidocaine Viscous] 2 % solution 1 applic mucous membrane TID PRN (Reason: pain) Qty: 100 3RF Rx Instructions: Mix 5 ml / 15 ml water to thin; use every 3 hours as need for throat pain lidocaine 5 % adhesive patch,medicated 1 patch topical QDAY Qty: 30 5RF Rx Instructions: leave on most painful area for up to 12 hrs then remove. Fresh patch daily. lidocaine-prilocaine 2.5-2.5 % cream 30 g topical ONCE PRN (Reason: pain) Qty: 30 2RF Rx Instructions: apply quarter inch amount over port site 1 hour prior to access as needed. benzonatate 200 mg capsule See Rx Instructions .ROUTE .COMPLEX Qty: 30 3RF Dose Instruction: TAKE ONE CAPSULE BY MOUTH EVERY EIGHT HOURS NEEDED FOR COUGH Rx Instructions: TAKE ONE CAPSULE BY MOUTH EVERY EIGHT HOURS NEEDED FOR COUGH. Do not exceed 3 caps per day. (DME) FreeStyle Lite Strips Strip See Rx Instructions .ROUTE .MEDSUPPLY Qty: 100 2RF Rx Instructions: Monitor in the AM and PM (DME) FreeStyle Deep 3 Sensor Device See Rx Instructions .Route Qty: 6 3RF Rx Instructions: Needs to take blood glucose 5 times daily. One in the AM one time prior to each meal times 3 and once in the evening (DME) FreeStyle Deep 3 Plus Sensor Device See Rx Instructions .Route Qty: 3 5RF Rx Instructions: Check blood glucose in the AM and PM ondansetron 8 mg tablet,disintegrating 8 mg PO Q8H PRN (Reason: nausea and vomiting) Qty: 90 1RF Rx Instructions: For use after chemotherapy. hydromorphone 1 mg/mL liquid 3 - 4 mg PO Q4H PRN (Reason: pain) Qty: 473 0RF (DME) FreeStyle Deep 3 [place] Misc See Rx Instructions .Route Qty: 1 0RF Rx Instructions: Needs to take blood glucose 5 times daily. One in the AM one time prior to each meal times 3 and once in the evening famotidine 40 mg/5 mL (8 mg/mL) suspension for reconstitution 40 mg PO QDAY Qty: 150 2RF naloxone [Narcan] 4 mg/actuation spray,non-aerosol 4 mg intranasal Q2M PRN (Reason: opioid overdose) Qty: 2 4RF Rx Instructions: spray 1 dose into ONE nostril; alternate nostrils w each dose until help arrives insulin lispro [Humalog KwikPen Insulin] 100 unit/mL insulin pen 1 - 4 unit subcut TID Qty: 15 0RF diphenoxylate-atropine [Lomotil] 2.5-0.025 mg tablet 1 tab PO QID PRN (Reason: diarrhea) Qty: 60 3RF levalbuterol HCl 1.25 mg/3 mL solution for nebulization 1.25 mg inhalation Q12H miconazole nitrate 200 mg/5 gram (4 %) cream 1 appful vaginal insulin glargine [Lantus Solostar U-100 Insulin] 100 unit/mL (3 mL) insulin pen 5 - 10 unit subcut DAILY guaifenesin 100 mg/5 mL liquid 200 mg PO Q4H PRN (Reason: congestion) Rx Instructions: Take with lots of water to help push out secretions. Creon 12,000-38,000 -60,000 unit capsule,delayed release(DR/EC) 1 cap PO BID Qty: 60 2RF Rx Instructions: administer with meals and/or snacks mirtazapine 7.5 mg tablet 15 mg feeding tube HS Qty: 90 3RF acetaminophen 500 mg tablet 1,000 mg PO TID PRN (Reason: pain) Qty: 180 3RF sodium chloride 3 % solution for nebulization 4 ml inhalation BID prochlorperazine maleate [Compazine] 10 mg tablet 10 mg PO TID PRN (Reason: nausea and vomiting) Qty: 90 1RF (DME) lancets [CareTouch Twist Lancet] 30 gauge misc See Rx Instructions .Route Qty: 100 2RF Rx Instructions: As directed (DME) pen needle, diabetic [Comfort EZ Pen [place]] 31 gauge x 3/16" needle See Rx Instructions .Route Qty: 100 0RF Rx Instructions: As directed with Lantus Solostar pen budesonide-formoterol [Symbicort] 80-4.5 mcg/actuation HFA aerosol inhaler 2 puff inhalation BID Qty: 10.2 3RF apixaban 2.5 mg tablet 2.5 mg PO BID Qty: 60 5RF loperamide [Imodium A-D] 2 mg tablet 2 mg PO Q4H PRN (Reason: diarrhea) Rx Instructions: Take 4 mg daily routine to prevent diarrhea. Administer 2 mg after each loose stool until symptoms controlled; do not exceed 8 mg per 24 hrs olanzapine 5 mg tablet 5 mg PO QPM Qty: 60 2RF Rx Instructions: Take in the evening on night #2, 3, and 4 post chemotherapy weekly gabapentin 300 mg/6 mL (6 mL) solution 200 - 300 mg PO TID alprazolam 0.5 mg tablet,disintegrating 0.5 mg PO BID-TID PRN (Reason: Anxiety) Qty: 60 0RF Rx Instructions: Use sparingly due to sedation and addiction metformin 1,000 mg tablet 500 mg feeding tube HS Qty: 180 3RF Print Language: Arabic Stand Alone Forms: PCP List
[2025-03-10 19:07] LABS: ALKALINE PHOSPHATASE 90 IU/L (42-121); ALT ALANINE AMINOTRANSFERASE 10 IU/L (10-60); AST ASPARTATE AMINOTRANSFERASE 15 IU/L (10-42); BILIRUBIN,TOTAL 0.3 mg/dL (0.2-1.0); BUN - BLOOD UREA NITROGEN 12 mg/dL (6-20); CALCIUM 8.3 mg/dL (8.5-10.3); CARBON DIOXIDE - CO2 29 mmol/L (21-32); CHLORIDE 96 mmol/L (101-111); CREATININE 0.5 mg/dL (0.6-1.3); GFR - MDRD 127 (>89); GLUCOSE 173 mg/dL (74-104); POTASSIUM 2.8 mmol/L (3.5-4.5); SODIUM 133 mmol/L (135-145); TOTAL PROTEIN 6.1 g/dL (6.4-8.9)
[2025-03-10 19:09] LABS: LIPASE < 10 U/L (11-82)
[2025-03-10 19:20] LABS: BAND NEUTROPHILS % (MANUAL) 6 %; DIFFERENTIAL COMMENT MANUAL DIFFERENTIAL; EOSINOPHILS # (MANUAL) 0.1 10^3/uL (0-0.7); LYMPHOCYTES # (MANUAL) 0.2 10^3/uL (1.5-3.5); LYMPHOCYTES % (MANUAL) 4 %; MONOCYTES # (MANUAL) 0.1 10^3/uL (0.0-1.0); NEUTROPHILS # (MANUAL) 5.1 10^3/uL (1.5-6.6); PLATELET ESTIMATE, MANUAL NORMAL (130-450,000) (NORMAL); PLATELET MORPHOLOGY NORMAL APPEARANCE (NORMAL); RBC MORPHOLOGY (MULTIPLE) NORMAL APPEARANCE (NORMAL)
[2025-03-10 19:38] LABS: B. PARAPERTUSSIS- RESP PCR PAN NOT DETECTED; B. PERTUSSIS- RESP PCR PANEL NOT DETECTED; C. PNEUMONIAE- RESP PCR PANEL NOT DETECTED; CORONAVIRUS 229E-RESP PCR NOT DETECTED; CORONAVIRUS HKU1-RESP PCR NOT DETECTED; CORONAVIRUS NL63-RESP PCR NOT DETECTED; CORONAVIRUS OC43-RESP PCR NOT DETECTED; HUMAN METAPNEUMOVIRUS NOT DETECTED; INFLUENZA A- RESP PCR PANEL NOT DETECTED; INFLUENZA B - RESP PCR PANEL NOT DETECTED; M. PNEUMONIAE- RESP PCR PANEL NOT DETECTED; PARAINFLUENZA VIRUS 1 NOT DETECTED; PARAINFLUENZA VIRUS 2 NOT DETECTED; PARAINFLUENZA VIRUS 4 NOT DETECTED; RHINOVIRUS/ENTEROVIRUS NOT DETECTED; RSV- RESP PCR PANEL NOT DETECTED; SARS-CoV-2 -RESP PCR PANEL NOT DETECTED
[2025-03-10] MEDS: ONDANSETRON 4 MG/2 ML VIAL IVP STA (19:57)
[2025-03-10] MEDS: MAGNESIUM SULFATE 2 GRAM 2 GM/50 ML BAG IV ONE (19:58)
[2025-03-10] MEDS: POTASSIUM CHLOR 10 MEQ/100 ML 10 MEQ/100 ML BAG IV SCH (19:58)
[2025-03-10] MEDS ORDERED: iohexoL-300 100 ML VIAL ONE (20:33)
[2025-03-10] MEDS: iohexoL-300 100 ML VIAL IVP ONE (21:07)
--- NOTE | 2025-03-10 21:31 | CT Report ---
PROCEDURE: CT Angio Chest INDICATIONS: Rule out PE CONTRAST: 65 ML OMNI 300 TECHNIQUE: After the administration of intravenous contrast, 2 mm axial images were acquired from the pulmonary apices to the posterior costophrenic angles during the arterial phase. In addition, 1 mm lung kernel and 5 mm soft tissue kernel reconstructions were performed. 3-dimensional coronal oblique maximum int ensity projection (MIP) reformats, 8 mm axial MIP, and 5 mm coronal and sagittal MPR reformats were t hen performed through the thorax. For radiation dose reduction, the following was used: automated exp osure control, adjustment of mA and/or kV according to patient size. COMPARISON: 03/25/2025 FINDINGS: Image quality: Excellent. Large vessels: No filling defects within the opacified pulmonary arteries, accounting for motion and contrast timing. No evidence of acute aortic syndrome or aortic aneurysm. Lungs and pleura: Diffuse tracheal thickening, with tracheal stent in place. There is dependent conso lidation in all lobes, with exception of the right middle lobe.. Mediastinum: Heart size is normal. No pericardial effusion. No large vessel abnormality. No mediastin al adenopathy by size criteria. Chest wall and lower neck: Thyroid is unremarkable. No axillary or supraclavicular adenopathy by size . Bones: No aggressive osseous abnormality. Upper Abdomen: Chronic pancreatitis. IMPRESSION: No pulmonary embolus. Dependent consolidation. Differential includes drug reaction, aspiration, multifocal pneumonia Diffuse tracheal thickening, with tracheal stent present. Reviewed by: Nish Tamez MD on 03/10/2025 9:29 PM PDT Approved by: Nish Tamez MD on 03/10/2025 9:29 PM PDT Station ID: [id number]
--- NOTE | 2025-03-10 21:32 | XRAY Report ---
PROCEDURE: XR Chest 1V INDICATIONS: cough and dyspnea few days TECHNIQUE: One view of the chest was acquired. COMPARISON: Same day CT. FINDINGS: Surgical changes and devices: Left chest wall port hip projects over the low SVC. Lungs and pleura: Patchy bibasilar opacities. Mediastinum: Mediastinal contours appear normal. Heart size is normal. Bones and chest wall: No suspicious bony lesions. Overlying soft tissues appear unremarkable. IMPRESSION: Patchy dependent opacities. Differential includes drug reaction, aspiration or infection. Reviewed by: Nish Tamez MD on 03/10/2025 9:30 PM PDT Approved by: Nish Tamez MD on 03/10/2025 9:30 PM PDT Station ID: [id number]
[2025-03-10] MEDS: cefTRIAXone 1 GM VIAL IVP STA (22:02)
[2025-03-10] MEDS: metroNIDAZOLE 500 MG/100 ML 500 MG/100 ML BAG IV ONE (22:04)
[2025-03-10] MEDS: POTASSIUM BICARB 25 MEQ TABLET PO STA (22:05)
[2025-03-10] MEDS: AZITHROMYCIN INJ 500 MG in SODIUM CHLORIDE 0.9% 250 ML IV STA (22:05)
[2025-03-10] MEDS ORDERED: SODIUM CHLORIDE FLUSH 0.9% 10 ML SYRINGE IVP PRN (22:52)
[2025-03-10] MEDS ORDERED: PROCHLORPERAZINE 10 MG/2 ML VIAL IVP PRN (22:52)
--- OUTSIDE RECORDS SUMMARY | 2025-03-10 23:07 | EXTERNAL MEDICAL SUMMARY RPT | Continuity of Care Document ---
Author Organization [facility] Address [address] [place] [address] Phone Problems date description facility 2024-12-11 08:21 Malignant neoplasm of trachea [facility] 2024-12-11 08:21 Type 2 diabetes mellitus with h yperglycemia [facility] 2024-12-11 08:21 Urinary tract infection, site n ot specified [facility] 2024-12-11 08:21 FPC (current) use of insu swati [facility] 2024-12-11 08:27 Malignant neoplasm of trachea [facility] 2024-12-11 08:27 Type 2 diabetes mellitus with h yperglycemia [facility] 2024-12-11 08:27 Urinary tract infection, site n ot specified [facility] 2024-12-11 08:27 [employer] (current) use of insu swati [facility] 2024-12-11 09:49 Malignant neoplasm of trachea [facility] 2024-12-11 09:49 Type 2 diabetes mellitus with h yperglycemia [facility] 2024-12-11 09:49 Urinary tract infection, site n ot specified [facility] 2024-12-11 09:49 FPC (current) use of insu swati [facility] 2024-12-12 09:05 Malignant neoplasm of trachea [facility] 2024-12-12 09:05 Type 2 diabetes mellitus with h yperglycemia [facility] 2024-12-12 09:05 Urinary tract infection, site n ot specified [facility] 2024-12-12 09:05 FPC (current) use of insu swati [facility] 2024-12-12 10:50 Malignant neoplasm of trachea [facility] 2024-12-12 10:50 Type 2 diabetes mellitus with h yperglycemia [facility] 2024-12-12 10:50 Urinary tract infection, site n ot specified [facility] 2024-12-12 10:50 FPC (current) use of insu swati [facility] 2024-12-12 19:06 Malignant neoplasm of trachea [facility] 2024-12-12 19:06 Type 2 diabetes mellitus with h yperglycemia [facility] 2024-12-12 19:06 Urinary tract infection, site n ot specified [facility] 2024-12-12 19:06 [employer] (current) use of insu [employer] [facility] 2024-12-13 00:23 Bronchitis, not specified as ac samish or chronic [facility] 2024-12-13 07:54 Malignant neoplasm of trachea [facility] 2024-12-13 07:54 Type 2 diabetes mellitus with h yperglycemia [facility] 2024-12-13 07:54 Urinary tract infection, site n ot specified [facility] 2024-12-13 07:54 [employer] (current) use of insu [employer] 2024-12-13 08:11 Malignant neoplasm of trachea [facility] 2024-12-13 08:11 Type 2 diabetes mellitus with h yperglycemia [facility] 2024-12-13 08:11 Urinary tract infection, site n ot specified [facility] 2024-12-13 08:11 FPC (current) use of insu [employer] 2024-12-13 08:12 Malignant neoplasm of trachea [facility] 2024-12-13 08:12 Type 2 diabetes mellitus with h yperglycemia [facility] 2024-12-13 08:12 Urinary tract infection, site n ot specified [facility] 2024-12-13 08:12 [employer] (current) use of insu [employer] 2024-12-13 08:28 Malignant neoplasm of trachea [facility] 2024-12-13 08:28 Type 2 diabetes mellitus with h yperglycemia [facility] 2024-12-13 08:28 Urinary tract infection, site n ot specified [facility] 2024-12-13 08:28 [employer] (current) use of insu [employer] 2024-12-13 10:05 Malignant neoplasm of trachea [facility] 2024-12-13 10:05 Other specified counseling [employer] 2024-12-13 10:44 Bronchitis, not specified as ac samish or chronic [facility] 11:05 [facility]24-12[facility]13 11:05 Other specified counseling [employer] [facility] [employer] 2024-12-14 10:39 Bronchitis, not specified as ac samish or chronic [facility]24-12-14 10:39 Other specified cough [facility] 2024-12-14 10:39 Pain, unspecified [facility] 2024-12-14 13:11 Malignant neoplasm of trachea [facility] 2024-12-14 13:11 Type 2 diabetes mellitus with h [facility]perglycemia [facility] 13:11 Urinary tract infection, site n ot specified [employer] 2024-12-14 13:11 [employer] (current) use of insu swati [employer] 2024-12-14 13:12 Malignant neoplasm of trachea [facility] 2024-12-14 13:12 Type 2 diabetes mellitus with h yperglycemia [facility] 13:12 Urinary tract infection, site n ot specified [employer] 2024-12-14 13:12 [employer] (current) use of insu swati [employer] 2024-12-14 13:14 Malignant neoplasm of trachea [facility] 2024-12-14 13:14 Type 2 diabetes mellitus with h yperglycemia [facility] 13:14 Urinary tract infection, site n ot specified [employer] 2024-12-14 13:14 FPC (current) use of insu swati [employer] 2024-12-14 13:17 Malignant neoplasm of trachea [facility] 2024-12-14 13:17 Type 2 diabetes mellitus with h yperglycemia [employer] 2024-12-14 13:17 Urinary tract infection, site n ot specified [employer] 2024-12-14 13:17 [employer] (current) use of insu swati [facility] 2024-12-14 13:19 Malignant neoplasm of trachea [facility] 2024-12-14 13:19 Type 2 diabetes mellitus with h yperglycemia [facility] 2024-12-14 13:19 Urinary tract infection, site n ot specified [employer] 2024-12-14 13:19 FPC (current) use of insu [employer] 2024-12-14 14:48 Malignant neoplasm of trachea [facility] 2024-12-14 14:48 Type 2 diabetes mellitus with h yperglycemia [facility] 2024-12-14 14:48 Bronchitis, not specified as ac samish or chronic [facility] 2024-12-14 14:48 Urinary tract infection, site n ot specified [facility] 2024-12-14 14:48 Other specified cough [facility] 2024-12-14 14:48 Pain, unspecified [facility] 2024-12-14 14:48 Other specified counseling [facility] 2024-12-14 14:48 FPC (current) use of insu [employer] 2024-12-15 00:00 Malignant neoplasm of trachea [facility] 2024-12-15 00:00 Type 2 diabetes mellitus withou t complications [facility] 2024-12-15 00:00 Unspecified severe protein-anastacio rajiv malnutrition [facility] 2024-12-15 00:00 Major depressive disorder, sing le episode, moderate [facility] 2024-12-15 00:00 Other specified diseases of upp er respiratory tract [facility] 2024-12-15 00:00 Bronchitis, not specified as ac samish or chronic [facility] 2024-12-15 00:00 Encounter for antineoplastic ch emotherapy [facility] 2024-12-15 00:00 Encounter for palliative care [employer] 2024-12-15 00:00 FPC (current) use of insu [employer] 2024-12-17 06:27 Malignant neoplasm of trachea [facility] 2024-12-17 06:27 Anemia, unspecified [facility] 2024-12-17 06:27 Neoplasm related pain (acute) ( chronic) [facility] 2024-12-17 06:27 Other pulmonary embolism withou t acute cor [facility]ale [facility]17 06:27 Other specified diseases of upp er respiratory tract [facility] 2024-12-17 06:27 Encounter for genera l adult medical examination without abnormal findings [facility]17 06:27 Encounter for antineoplastic ch emotherapy [facility]24-[facility]-17 06:27 Encounter for palliative care [facility] 2024-12-17 06:27 Gastrostomy status [facility] 2024-12-18 08:33 Malignant neoplasm of trachea [facility] 2024-12-18 08:33 Type 2 diabetes mellitus with h yperglycemia [facility] 08:33 Urinary tract infection, site n ot specified [facility]24-12-18 08:33 [employer] (current) use of insu swati [employer] 2024-12-18 08:38 Malignant neoplasm of trachea [facility] 2024-12-18 08:38 Type 2 diabetes mellitus with h yperglycemia [facility] 08:38 Urinary tract infection, site n ot specified [employer] 2024-12-18 08:38 FPC (current) use of insu swati [employer] 2024-12-18 09:32 Malignant neoplasm of trachea [facility] 2024-12-18 09:32 Type 2 diabetes mellitus with h yperglycemia [facility]18 09:32 Urinary tract infection, site n ot specified [employer] 2024-12-18 09:32 [employer] (current) use of insu swati [employer] 2024-12-18 10:22 Malignant neoplasm of trachea [facility] 2024-12-18 10:22 Type 2 diabetes mellitus with h yperglycemia [facility]18 10:22 Urinary tract infection, site n ot specified [employer] 2024-12-18 10:22 [employer] (current) use of insu swati [facility] 2024-12-19 14:57 Malignant neoplasm of trachea [facility] 2024-12-19 14:57 Gastrostomy status [facility] 2024-12-20 10:09 Malignant neoplasm of trachea [facility] 2024-12-20 10:09 Type 2 diabetes mellitus with h yperglycemia [facility] 2024-12-20 10:09 Urinary tract infection, site n ot specified [facility] 2024-12-20 10:09 [employer] (current) use of insu swati [employer] 2024-12-20 12:46 Malignant neoplasm of trachea [facility] 2024-12-20 12:46 Type 2 diabetes mellitus with h yperglycemia [facility]20 12:46 Urinary tract infection, site n ot specified [facility] 2024-12-20 12:46 [employer] (current) use of insu swati [employer] 2024-12-20 12:47 Malignant neoplasm of trachea [facility] 2024-12-20 12:47 Type 2 diabetes mellitus with h yperglycemia [facility]20 12:47 Urinary tract infection, site n ot specified [facility]24-12-20 12:47 FPC (current) use of insu [employer] 2024-12-25 09:19 Malignant neoplasm of trachea [facility] 2024-12-25 09:19 Type 2 diabetes mellitus with h yperglycemia [employer] 2024-12-25 09:19 Urinary tract infection, site n ot specified [facility] 2024-12-25 09:19 [employer] (current) use of insu swati [facility] 2024-12-25 09:22 Malignant neoplasm of trachea [facility] 2024-12-25 09:22 Type 2 diabetes mellitus with h yperglycemia [employer] 2024-12-25 09:22 Urinary tract infection, site n ot specified [employer] 2024-12-25 09:22 [employer] (current) use of insu swati [facility] 2024-12-25 09:48 Malignant neoplasm of trachea [facility] 2024-12-25 09:48 Type 2 diabetes mellitus with h yperglycemia [employer] 2024-12-25 09:48 Urinary tract infection, site n ot specified [facility] 2024-12-25 09:48 [employer] (current) use of insu swati [employer] 2024-12-25 10:02 Malignant neoplasm of trachea [facility] 2024-12-25 10:02 Gastrostomy status [facility] 2024-12-25 10:13 Malignant neoplasm of trachea [facility] 2024-12-25 10:13 Gastrostomy status [facility] 2024-12-25 10:14 Malignant neoplasm of trachea [facility] 2024-12-25 10:14 Gastrostomy status [facility] 2024-12-25 11:17 Malignant neoplasm of trachea [facility] 2024-12-25 11:17 Type 2 diabetes mellitus with h yperglycemia [facility]24-[facility]-25 11:17 Urinary tract infection, site n ot specified [facility] 2024-12-25 11:17 FPC (current) use of insu swati [employer] 2024-12-27 07:29 Malignant neoplasm of trachea [facility] 2024-12-27 07:29 Gastrostomy status [facility] 2024-12-27 08:18 Malignant neoplasm of trachea [facility] 2024-12-27 08:18 Type 2 diabetes mellitus with h yperglycemia [facility]24-[facility]27 08:18 Urinary tract infection, site n ot specified [employer] 2024-12-27 08:18 FPC (current) use of insu swati [employer] [facility] 2024-12-27 11:50 Malignant neoplasm of trachea [facility] 2024-12-27 11:50 Neoplasm related pain (acute) ( chronic) [employer] [facility] 2024-12-27 11:50 Other specified diseases of upp er respiratory tract [facility]27 11:50 Encounter for genera l adult medical examination without abnormal findings [employer] [facility] 2024-12-27 11:50 Encounter for antineoplastic ch emotherapy [facility] 2024-12-27 11:50 Procedure and treatm ent not carried out, unspecified reason [facility] 2024-12-27 11:50 Gastrostomy status [facility] 2025-01-01 08:15 Malignant neoplasm of trachea [facility] 2025-01-01 08:15 Type 2 diabetes mellitus with h yperglycemia [facility] 2025-01-01 08:15 Urinary tract infection, site n ot specified [facility] 2025-01-01 08:15 FPC (current) use of insu swati [facility]25-01-01 08:52 Malignant neoplasm of trachea [facility] 2025-01-01 08:52 Type 2 diabetes mellitus with h yperglycemia [facility] 2025-01-01 08:52 Urinary tract infection, site n ot specified [facility] 2025-01-01 08:52 FPC (current) use of insu swati [facility]25-[facility]-01 08:55 Malignant neoplasm of trachea [facility] 2025-01-01 08:55 Type 2 diabetes mellitus with h yperglycemia [facility]25-[facility]-01 08:55 Urinary tract infection, site n ot specified [facility] 2025-01-01 08:55 [employer] (current) use of insu swati [facility] 2025-01-01 12:23 Malignant neoplasm of trachea [facility] 2025-01-01 12:23 Gastrostomy status [facility] 2025-01-03 08:12 Malignant neoplasm of trachea [facility] 2025-01-03 08:20 Malignant neoplasm of trachea [facility] 2025-01-03 08:20 Type 2 diabetes mellitus with h yperglycemia [facility]25-[facility]-03 08:20 Urinary tract infection, site n ot specified [employer] 2025-01-03 08:20 FPC (current) use of insu swati [employer] 2025-01-03 08:21 Malignant neoplasm of trachea [facility] 2025-01-03 08:21 Type 2 diabetes mellitus with h yperglycemia [facility]25-[facility]-03 08:21 Urinary tract infection, site n ot specified [employer] 2025-01-03 08:21 FPC (current) use of insu swati [facility] 2025-01-03 08:35 Malignant neoplasm of trachea [facility] 2025-01-03 08:35 Type 2 diabetes mellitus with h yperglycemia [facility] 2025-01-03 08:35 Urinary tract infection, site n ot specified [employer] 2025-01-03 08:35 [employer] (current) use of insu swati [employer] 2025-01-03 08:40 Malignant neoplasm of trachea [facility] 2025-01-03 08:52 Malignant neoplasm of trachea [facility] 2025-01-03 08:52 Type 2 diabetes mellitus with h yperglycemia [facility] 2025-01-03 08:52 Urinary tract infection, site n ot specified [facility]25-[facility]-03 08:52 [employer] (current) use of insu swati [employer] 2025-01-03 09:04 Malignant neoplasm of trachea [facility] 2025-01-03 09:04 Type 2 diabetes mellitus with h yperglycemia [facility]25-[facility]-03 09:04 Urinary tract infection, site n ot specified [employer] 2025-01-03 09:04 [employer] (current) use of insu [employer] 2025-01-03 09:09 Malignant neoplasm of trachea [facility] 2025-01-03 09:09 Type 2 diabetes mellitus with h yperglycemia [facility]25-[facility]03 09:09 Urinary tract infection, site n ot specified [employer] 2025-01-03 09:09 [employer] (current) use of insu swati [facility] 2025-01-03 10:27 Malignant neoplasm of trachea [facility] 2025-01-03 10:27 Type 2 diabetes mellitus with h yperglycemia [facility] 2025-01-03 10:27 Urinary tract infection, site n ot specified [facility]25-[facility]-03 10:27 FPC (current) use of insu swati [facility] 2025-01-03 10:29 Malignant neoplasm of trachea [facility] 2025-01-03 10:29 Type 2 diabetes mellitus with h yperglycemia [facility] 2025-01-03 10:29 Urinary tract infection, site n ot specified [facility] 2025-01-03 10:29 FPC (current) use of insu swati [facility] 2025-01-03 10:32 Malignant neoplasm of trachea [facility] 2025-01-03 10:32 Type 2 diabetes mellitus with h yperglycemia [facility] 2025-01-03 10:32 Urinary tract infection, site n ot specified [facility] 2025-01-03 10:32 FPC (current) use of insu swati [facility] 2025-01-03 10:34 Malignant neoplasm of trachea [facility] 2025-01-03 10:34 Type 2 diabetes mellitus with h yperglycemia [facility] 2025-01-03 10:34 Urinary tract infection, site n ot specified [facility]25-[facility]-03 10:34 FPC (current) use of insu swati [facility] 2025-01-03 11:21 Malignant neoplasm of trachea [facility] 2025-01-03 11:21 Type 2 diabetes mellitus with h yperglycemia [facility] 2025-01-03 11:21 Urinary tract infection, site n ot specified [facility]25-[facility]-03 11:21 FPC (current) use of insu swati [employer] 2025-01-03 11:22 Malignant neoplasm of trachea [facility] 2025-01-03 11:22 Type 2 diabetes mellitus with h yperglycemia [facility] 2025-01-03 11:22 Urinary tract infection, site n ot specified [facility] 2025-01-03 11:22 [employer] (current) use of insu swati [facility] 2025-01-04 00:03 Malignant neoplasm of trachea [facility] 2025-01-08 09:00 Malignant neoplasm of trachea [facility] 2025-01-08 09:00 Type 2 diabetes mellitus with h yperglycemia [facility] 2025-01-08 09:00 Urinary tract infection, site n ot specified [facility] 2025-01-08 09:00 FPC (current) use of insu swati [facility] 2025-01-08 09:01 Malignant neoplasm of trachea [facility] 2025-01-08 09:01 Type 2 diabetes mellitus with h yperglycemia [facility] 2025-[facility]-08 09:01 Urinary tract infection, site n ot specified [facility] 2025-01-08 09:01 FPC (current) use of insu swati [facility] 2025-01-08 09:58 [facility]ignant [facility] trachea [facility] 2025-01-08 09:58 Type 2 diabetes mellitus with h yperglycemia [facility] 2025-01-08 09:58 Urinary tract infection, site n ot specified [employer] 2025-01-08 09:58 [employer] (current) use of insu swati [employer] [facility] 2025-01-08 09:59 Malignant neoplasm of trachea [facility] 2025-01-08 09:59 Type 2 diabetes mellitus with h yperglycemia [facility] 2025-01-08 09:59 Urinary tract infection, site n ot specified [employer] 2025-01-08 09:59 [employer] (current) use of insu swati [facility] 2025-01-08 10:00 Malignant neoplasm of trachea [facility] 2025-01-08 10:00 Type 2 diabetes mellitus with h yperglycemia [facility] 10:00 Urinary tract infection, site n ot specified [employer] 2025-01-08 10:00 [employer] (current) use of insu [employer] 2025-01-08 10:05 Malignant neoplasm of trachea [facility] 2025-01-08 10:05 Type 2 diabetes mellitus with h yperglycemia [facility] 2025-01-08 10:05 Urinary tract infection, site n ot specified [employer] 2025-01-08 10:05 FPC (current) use of insu [employer] 2025-01-08 10:11 Malignant neoplasm of trachea [facility] 2025-01-08 10:11 Type 2 diabetes mellitus with h yperglycemia [facility] 2025-01-08 10:11 Urinary tract infection, site n ot specified [facility] 2025-01-08 10:11 FPC (current) use of insu swati [facility] 2025-01-08 13:43 Malignant neoplasm of trachea [facility] 2025-01-08 13:43 Type 2 diabetes mellitus with h yperglycemia [facility] 2025-01-08 13:43 Urinary tract infection, site n ot specified [employer] 2025-01-08 13:43 FPC (current) use of insu swati [facility] 2025-01-08 15:49 Malignant neoplasm of trachea [facility] 2025-01-08 15:49 Type 2 diabetes mellitus with h yperglycemia [facility] 2025-01-08 15:49 Urinary tract infection, site n ot specified [employer] 2025-01-08 15:49 [employer] (current) use of insu swati [facility] 2025-01-09 15:59 Malignant neoplasm of trachea [facility] 2025-01-09 15:59 Type 2 diabetes mellitus with h yperglycemia [employer] 2025-01-09 15:59 Urinary tract infection, site n ot specified [employer] 2025-01-09 15:59 [employer] (current) use of insu [employer] 2025-01-10 08:03 Malignant neoplasm of trachea [facility] 2025-01-10 08:03 Type 2 diabetes mellitus with h yperglycemia [employer] 2025-01-10 08:03 Urinary tract infection, site n ot specified [employer] 2025-01-10 08:03 [employer] (current) use of insu swati [facility] 2025-01-10 09:46 Malignant neoplasm of trachea [facility] 2025-01-10 09:46 Type 2 diabetes mellitus with h yperglycemia [facility] 2025-01-10 09:46 Urinary tract infection, site n ot specified [employer] 2025-01-10 09:46 FPC (current) use of insu swati [facility] 2025-01-10 09:47 Malignant neoplasm of trachea [facility] 2025-01-10 09:47 Type 2 diabetes mellitus with h yperglycemia [facility] 2025-01-10 09:47 Urinary tract infection, site n ot specified [facility] 2025-01-10 09:47 [employer] (current) use of [employer] [facility] 2025-01-10 10:03 Malignant neoplasm of trachea [facility] 2025-01-10 10:03 Type 2 diabetes mellitus with h yperglycemia [facility]25-[facility]10 10:03 Urinary tract infection, site n ot specified [facility] 2025-01-10 10:03 [employer] (current) use of [employer] [facility] 2025-01-10 11:10 Malignant neoplasm of trachea [facility] 2025-01-10 11:10 Anemia, unspecified [facility] [facility] [employer] [facility] 2025-01-10 11:10 Neoplasm related pain (acute) ( chronic) [facility] 2025-01-10 11:10 Other pulmonary embolism withou t acute cor pulmonale [facility] 2025-01-10 11:10 Other specified diseases of upp er respiratory tract [facility] 2025-01-10 11:10 Dysuria [facility] 2025-01-10 11:10 Encounter for genera l adult medical examination without abnormal findings [facility] 2025-01-10 11:10 Encounter for antineoplastic ch emotherapy [facility]25-[facility]-10 11:10 Gastrostomy status [facility] 2025-01-10 11:27 Malignant neoplasm of trachea [facility] 2025-01-10 11:27 Anemia, unspecified idHello Markety [facility] 2025-01-10 11:27 Neoplasm related pain (acute) ( chronic) [facility] 2025-01-10 11:27 Other pulmonary embolism withou t acute cor pulmonale [facility] 2025-01-10 11:27 Other specified diseases of upp er respiratory tract [facility] 2025-01-10 11:27 Dysuria [facility] 2025-01-10 11:27 Encounter for genera l adult medical examination without abnormal findings [employer] 2025-01-10 11:27 Encounter for antineoplastic ch emotherapy [facility] 2025-01-10 11:27 Gastrostomy status [facility] 2025-01-10 15:43 Malignant neoplasm of trachea [facility] 2025-01-10 15:43 Type 2 diabetes mellitus with h yperglycemia [facility] 2025-01-10 15:43 Urinary tract infection, site n ot specified [facility] 2025-01-10 15:43 FPC (current) use of insu swati [facility] 2025-01-10 16:25 Acute upper respiratory infecti on, unspecified [facility] 2025-01-10 16:25 Bronchitis, not specified as ac samish or chronic [facility] 2025-01-10 16:25 Nausea [facility] 2025-01-13 18:31 Diarrhea, unspecified [facility] 2025-01-13 18:47 Diarrhea, unspecified [facility] 2025-01-14 08:56 Diarrhea, unspecified [facility] 2025-01-14 15:58 Malignant neoplasm [facility]a [facility] 2025-01-14 15:58 Type 2 diabetes mellitus with h yperglycemia [facility] 2025-01-14 15:58 Urinary tract infection, site n ot specified [facility] 2025-01-14 15:58 FPC (current) use of insu swati Helijia [facility] 2025-01-15 07:49 Malignant neoplasm of trachea [facility] 2025-01-15 07:49 Type 2 diabetes mellitus with h yperglycemia [facility] 2025-01-15 07:49 Urinary tract infection, site n ot specified [facility] 2025-01-15 07:49 FPC (current) use of insu [employer] 2025-01-15 08:44 Malignant neoplasm of trachea [facility] 2025-01-15 08:44 Type 2 diabetes mellitus with h yperglycemia [facility] 2025-01-15 08:44 Urinary tract infection, site n ot specified [facility] 2025-01-15 08:44 [employer] (current) use of insu [employer] 2025-01-16 08:08 Unspecified abdominal pain [employer] 2025-01-16 08:08 Diarrhea, unspecified [facility] 2025-01-16 15:20 Malignant neoplasm of trachea [facility] 2025-01-16 15:20 Type 2 diabetes mellitus with h yperglycemia [facility] 2025-01-16 15:20 Urinary tract infection, site n ot specified [facility] 2025-01-16 15:20 FPC (current) use of insu swati [employer] 2025-01-17 07:56 Malignant neoplasm of trachea [employer] 2025-01-17 08:06 Malignant neoplasm of trachea [facility] 2025-01-17 08:06 Type 2 diabetes mellitus with h yperglycemia [facility] 08:06 Urinary tract infection, site n ot specified [facility] 2025-01-17 08:06 FPC (current) use of insu swati [employer] 2025-01-17 08:07 Malignant neoplasm of trachea [employer] 2025-01-17 08:07 Type 2 diabetes mellitus with h yperglycemia [facility] 2025-01-17 08:07 Urinary tract infection, site n ot specified [facility] 2025-01-17 08:07 [employer] (current) use of insu swati [employer] 2025-01-17 08:27 Malignant neoplasm of trachea [facility] 2025-01-17 08:27 Type 2 diabetes mellitus with h yperglycemia [facility]25-[facility]-17 08:27 Urinary tract infection, site n ot specified [employer] 2025-01-17 08:27 [employer] (current) use of insu swati [employer] 2025-01-17 08:48 Malignant neoplasm of trachea [facility] 2025-01-17 08:48 Type 2 diabetes mellitus with h yperglycemia [facility]25-[facility]-17 08:48 Urinary tract infection, site n ot specified [employer] 2025-01-17 08:48 FPC (current) use of insu swati [employer] 2025-01-17 08:57 Malignant neoplasm of trachea [employer] 2025-01-17 10:02 Malignant neoplasm of trachea [employer] 2025-01-17 10:02 Type 2 diabetes mellitus with h yperglycemia [employer] 2025-01-17 10:02 Urinary tract infection, site n ot specified [employer] 2025-01-17 10:02 [employer] (current) use of insu swati [employer] 2025-01-17 15:47 Malignant neoplasm of trachea [facility] 2025-01-17 15:47 Type 2 diabetes mellitus with h yperglycemia [facility]17 15:47 Urinary tract infection, site n ot specified [employer] 2025-01-17 15:47 [employer] (current) use of insu swati [employer] 2025-01-17 15:48 Malignant neoplasm of trachea [facility] 2025-01-17 15:48 Type 2 diabetes mellitus with h yperglycemia [facility]25-[facility]-17 15:48 Urinary tract infection, site n ot specified [employer] 2025-01-17 15:48 [employer] (current) use of insu swati [employer] 2025-01-17 15:51 Malignant neoplasm of trachea [facility] 2025-01-17 15:51 Type 2 diabetes mellitus with h yperglycemia [facility]25-01-17 15:51 Urinary tract infection, site n ot specified [employer] 2025-01-17 15:51 [employer] (current) use of insu [employer] 2025-01-17 15:52 Malignant neoplasm of trachea [facility] 2025-01-17 15:52 Type 2 diabetes mellitus with h yperglycemia [employer] 2025-01-17 15:52 Urinary tract infection, site n ot specified [facility] 2025-01-17 15:52 FPC (current) use of insu swati [employer] 2025-01-20 14:53 Toxic gastroenteritis and colit is [employer] [facility] 2025-01-20 14:53 Personal history of antineoplas tic chemotherapy [employer] 2025-01-21 09:01 Malignant neoplasm of trachea [facility] 2025-01-21 09:01 Other pulmonary embolism withou t acute cor pulmonale [employer] 2025-01-21 09:01 Other diseases of me diastinum, not elsewhere classified [employer] [facility] 2025-01-21 09:11 Malignant neoplasm of trachea [facility] 2025-01-21 09:11 Other pulmonary embolism withou t acute cor pulmonale [employer] [facility] 2025-01-21 09:11 Other diseases of me diastinum, not elsewhere classified [employer] [facility] 2025-01-21 11:39 Malignant neoplasm of trachea [facility] 2025-01-21 12:31 Malignant neoplasm of trachea [facility] 2025-01-21 12:31 Other pulmonary embolism withou t acute cor pulmonale [employer] [facility] 2025-01-21 12:31 Other diseases of me diastinum, not elsewhere classified [employer] 2025-01-21 14:13 Malignant neoplasm of trachea [facility] 2025-01-21 14:13 Type 2 diabetes mellitus with h yperglycemia [employer] 2025-01-21 14:13 Urinary tract infection, site n ot specified [employer] 2025-01-21 14:13 FPC (current) use of insu [employer] 2025-01-22 08:25 Malignant neoplasm of trachea [facility] 2025-01-22 08:25 Type 2 diabetes mellitus with h yperglycemia [employer] 2025-01-22 08:25 Urinary tract infection, site n ot specified [facility] [facility] 2025-01-22 08:25 FPC (current) use of insu [employer] 2025-01-22 08:52 Malignant neoplasm of trachea [facility] 2025-01-22 08:52 Type 2 diabetes mellitus with h yperglycemia [employer] 2025-01-22 08:52 Urinary tract infection, site n ot specified [employer] 2025-01-22 08:52 [employer] (current) use of insu [employer] 2025-01-23 13:20 Malignant neoplasm of trachea [facility] 2025-01-23 13:20 Other pulmonary embolism withou t acute cor pulmonale [employer] [facility] 2025-01-23 13:20 Other diseases of me diastinum, not elsewhere classified [facility] 2025-01-24 00:01 Malignant neoplasm of trachea [facility] 2025-01-24 00:01 Other pulmonary embolism withou t acute cor pulmonale [employer] [facility] 2025-01-24 00:01 Other diseases of me diastinum, not elsewhere classified [facility] [facility] 2025-01-24 07:24 Malignant neoplasm of trachea [facility] 2025-01-24 07:40 Malignant neoplasm of trachea [facility] 2025-01-24 07:40 Type 2 diabetes mellitus with h yperglycemia [employer] [facility] 2025-01-24 07:40 Urinary tract infection, site n ot specified [facility] [facility] 2025-01-24 07:40 [employer] (current) use of insu [employer] 2025-01-24 07:41 Malignant neoplasm of trachea [employer] 2025-01-24 07:41 Type 2 diabetes mellitus with h yperglycemia [employer] [facility] 2025-01-24 07:41 Urinary tract infection, site n ot specified [facility] [facility] 2025-01-24 07:41 FPC (current) use of [employer] 2025-01-24 08:07 Malignant neoplasm of trachea [employer] 2025-01-24 08:07 Type 2 diabetes mellitus with h yperglycemia [facility] [facility] 2025-01-24 08:07 Urinary tract infection, site n ot specified [employer] [facility] 2025-01-24 08:07 [employer] (current) use of [employer] 2025-01-24 11:07 Malignant neoplasm of trachea [employer] 2025-01-24 11:07 Anemia, unspecified [facility] 2025-01-24 11:07 Other pulmonary embolism withou t acute cor pulmonale [employer] 2025-01-24 11:07 Other specified diseases of upp er respiratory tract [employer] 2025-01-24 11:07 Pain [facility] right [facility] 2025-01-24 11:07 Pain in left knee [facility] 2025-01-24 11:07 Encounter for genera l adult medical examination without abnormal findings [employer] 2025-01-24 11:07 Encounter for antineoplastic ch emotherapy [employer] 2025-01-24 11:07 Gastrostomy status [facility] 2025-01-24 11:15 Malignant neoplasm of trachea [facility] 2025-01-24 15:43 Malignant neoplasm of trachea [facility] 2025-01-24 15:43 Type 2 diabetes mellitus with h yperglycemia [facility] 15:43 Urinary tract infection, site n ot specified [employer] 2025-01-24 15:43 [employer] (current) use of insu swati [employer] 2025-01-25 00:03 Malignant neoplasm of trachea [facility] 2025-01-28 13:15 Malignant neoplasm of trachea [facility] 2025-01-28 13:15 Type 2 diabetes mellitus with h yperglycemia [facility] 2025-01-28 13:15 Urinary tract infection, site n ot specified [employer] 2025-01-28 13:15 FPC (current) use of insu swati [employer] 2025-01-29 08:55 Malignant neoplasm of trachea [facility] 2025-01-29 08:55 Type 2 diabetes mellitus with h yperglycemia [facility]25-01-29 08:55 Urinary tract infection, site n ot specified [employer] 2025-01-29 08:55 FPC (current) use of insu swati [employer] 2025-02-05 09:08 Cough, unspecified [facility] 2025-02-05 09:08 Shortness of breath Helij[facility] 2025-02-07 07:21 Malignant neoplasm of trachea [facility] 2025-02-07 08:33 Malignant neoplasm of trachea [facility] 2025-02-07 08:33 Type 2 diabetes mellitus with h yperglycemia [employer] 2025-02-07 08:33 Urinary tract infection, site n ot specified [employer] 2025-02-07 08:33 FPC (current) use of insu swati [employer] 2025-02-07 08:54 Malignant neoplasm of trachea [facility] 2025-02-07 08:54 Type 2 diabetes mellitus with h yperglycemia [facility] 2025-02-07 08:54 Urinary tract infection, site n ot specified [facility] 2025-02-07 08:54 [employer] (current) use of insu swati [employer] 2025-02-07 09:08 Malignant neoplasm of trachea [facility] 2025-02-07 09:08 Type 2 diabetes mellitus with h yperglycemia [facility] 2025-02-07 09:08 Urinary tract infection, site n ot specified [employer] 2025-02-07 09:08 [employer] (current) use of insu swati [employer] 2025-02-07 09:25 Malignant neoplasm of trachea [facility] 2025-02-07 09:25 Type 2 diabetes mellitus with h yperglycemia [facility] 2025-02-07 09:25 Urinary tract infection, site n ot specified [employer] 2025-02-07 09:25 [employer] (current) use of insu swati [employer] 2025-02-07 09:27 Malignant neoplasm of trachea [facility] 2025-02-07 09:27 Type 2 diabetes mellitus with h yperglycemia [facility] 2025-02-07 09:27 Urinary tract infection, site n ot specified [employer] 2025-02-07 09:27 [employer] (current) use of insu swati [employer] 2025-02-07 10:10 Malignant neoplasm of trachea W Pint [facility] 2025-02-07 10:10 Type 2 diabetes mellitus with h yperglycemia [facility] 2025-02-07 10:10 Urinary tract infection, site n ot specified [employer] 2025-02-07 10:10 [employer] (current) use of insu swati [employer] 2025-02-07 13:21 Dyspnea, unspecified [facility]bey [facility] 2025-02-07 14:34 Malignant neoplasm of trachea [facility] 2025-02-07 14:34 Type 2 diabetes mellitus with h yperglycemia [facility] 2025-02-07 14:34 Urinary tract infection, site n ot specified [facility] 2025-02-07 14:34 FPC (current) use of insu swati [employer] 2025-02-07 14:37 Malignant neoplasm of trachea [facility] 2025-02-07 14:37 Type 2 diabetes mellitus with h yperglycemia [facility] 2025-02-07 14:37 Urinary tract infection, site n ot specified [facility] 2025-02-07 14:37 FPC (current) use of insu swati [employer] 2025-02-07 14:38 Malignant neoplasm of trachea [facility] 2025-02-07 14:38 Type 2 diabetes mellitus with h yperglycemia [facility] 2025-02-07 14:38 Urinary tract infection, site n ot specified [employer] 2025-02-07 14:38 FPC (current) use of insu swati [employer] 2025-02-07 14:52 Malignant neoplasm of trachea [facility] 2025-02-07 14:52 Type 2 diabetes mellitus with h yperglycemia [facility]25-02-07 14:52 Urinary tract infection, site n ot specified [employer] 2025-02-07 14:52 FPC (current) use of insu swati [employer] 2025-02-07 15:38 Malignant neoplasm of trachea [facility] 2025-02-07 15:38 Type 2 diabetes mellitus with h yperglycemia [facility] 2025-02-07 15:38 Urinary tract infection, site n ot specified [employer] 2025-02-07 15:38 FPC (current) use of insu swati [employer] 2025-02-07 15:39 Malignant neoplasm of trachea [facility] 2025-02-07 15:39 Type 2 diabetes mellitus with h yperglycemia [facility] 2025-02-07 15:39 Urinary tract infection, site n ot specified [employer] 2025-02-07 15:39 [employer] (current) use of insu swati [employer] 2025-02-07 15:40 Malignant neoplasm of trachea [facility] 2025-02-07 15:40 Type 2 diabetes mellitus with h yperglycemia [facility] 2025-02-07 15:40 Urinary tract infection, site n ot specified [facility] 2025-02-07 15:40 [employer] (current) use of insu swati [facility] 2025-02-07 15:57 Malignant neoplasm of trachea [facility] 2025-02-07 15:57 Type 2 diabetes mellitus with h yperglycemia [facility] 2025-02-07 15:57 Urinary tract infection, site n ot specified [facility] 2025-02-07 15:57 [employer] (current) use of insu swati [facility] 2025-02-07 16:04 Malignant neoplasm of trachea [facility] 2025-02-07 16:04 Type 2 diabetes mellitus with h yperglycemia [facility] 2025-02-07 16:04 Urinary tract infection, site n ot specified [employer] [facility] 2025-02-07 16:04 FPC (current) use of insu swati [facility] 2025-02-07 16:05 Malignant neoplasm of trachea [facility] 2025-02-07 16:05 Type 2 diabetes mellitus with h yperglycemia [facility] 2025-02-07 16:05 Urinary tract infection, site n ot specified [facility] 2025-02-07 16:05 FPC (current) use of insu swati [facility] 2025-02-07 16:06 Malignant neoplasm of trachea [facility] 2025-02-07 16:06 Type 2 diabetes mellitus with h yperglycemia [facility] 2025-02-07 16:06 Urinary tract infection, site n ot specified [facility] 2025-02-07 16:06 [employer] (current) use of insu swati [facility] 2025-02-07 16:09 Malignant neoplasm of trachea [facility] 2025-02-07 16:09 Type 2 diabetes mellitus with h yperglycemia [facility] 2025-02-07 16:09 Urinary tract infection, site n ot specified [employer] [facility] 2025-02-07 16:09 [employer] (current) use of insu swati [employer] 2025-02-07 16:10 Malignant neoplasm of trachea [facility] 2025-02-07 16:10 Type 2 diabetes mellitus with h yperglycemia [facility] 2025-02-07 16:10 Urinary tract infection, site n ot specified [facility] 2025-02-07 16:10 [employer] (current) use of insu swati [employer] 2025-02-07 16:12 Malignant neoplasm of trachea [facility] 2025-02-07 16:12 Type 2 diabetes mellitus with h yperglycemia [facility] 2025-02-07 16:12 Urinary tract infection, site n ot specified [employer] 2025-02-07 16:12 FPC (current) use of insu swati [employer] [facility] 2025-02-11 07:46 Malignant neoplasm of trachea [facility] 2025-02-11 12:59 Malignant neoplasm of trachea [facility] 2025-02-11 12:59 Type 2 diabetes mellitus with h yperglycemia [employer] 2025-02-11 12:59 Urinary tract infection, site n ot specified [employer] 2025-02-11 12:59 FPC (current) use of insu swati [employer] 2025-02-11 13:00 Malignant neoplasm of trachea [facility] 2025-02-11 13:00 Type 2 diabetes mellitus with h yperglycemia [facility]11 13:00 Urinary tract infection, site n ot specified [employer] 2025-02-11 13:00 [employer] (current) use of insu swati [employer] 2025-02-11 15:19 Malignant neoplasm of trachea [facility] 2025-02-11 15:19 Type 2 diabetes mellitus with h yperglycemia [employer] 2025-02-11 15:19 Urinary tract infection, site n ot specified [employer] 2025-02-11 15:19 FPC (current) use of insu swati [employer] 2025-02-12 08:05 Malignant neoplasm of trachea [facility] 2025-02-12 08:05 Type 2 diabetes mellitus with h yperglycemia [employer] 2025-02-12 08:05 Urinary tract infection, site n ot specified [employer] 2025-02-12 08:05 FPC (current) use of insu swati [employer] 2025-02-12 08:50 Malignant neoplasm of trachea [facility] 2025-02-12 08:50 Type 2 diabetes mellitus with h yperglycemia [facility] 2025-02-12 08:50 Urinary tract infection, site n ot specified [employer] 2025-02-12 08:50 [employer] (current) use of insu swati [employer] 2025-02-12 08:51 Malignant neoplasm of trachea [facility] 2025-02-12 08:51 Type 2 diabetes mellitus with h yperglycemia [facility] 2025-02-12 08:51 Urinary tract infection, site n ot specified [employer] 2025-02-12 08:51 FPC (current) use of insu swati [employer] 2025-02-12 08:54 Malignant neoplasm of trachea [facility] 2025-02-12 08:54 Type 2 diabetes mellitus with h [facility]perglycemia [facility]12 08:54 Urinary tract infection, site n ot specified [employer] 2025-02-12 08:54 FPC (current) use of insu swati [employer] [facility] 2025-02-12 09:51 Malignant neoplasm of trachea [facility] 2025-02-12 09:51 Type 2 diabetes mellitus with h yperglycemia [employer] 2025-02-12 09:51 Urinary tract infection, site n ot specified [facility] [facility] 2025-02-12 09:51 FPC (current) use of insu swati [employer] 2025-02-12 11:29 Malignant neoplasm of trachea [facility] 2025-02-12 11:29 Type 2 diabetes mellitus with h yperglycemia [employer] 2025-02-12 11:29 Type 2 diabetes mellitus withou t complications [facility] 2025-02-12 11:29 Urinary tract infection, site n ot specified [employer] [facility] 2025-02-12 11:29 [employer] (current) use of insu swati [employer] 2025-02-12 11:31 Malignant neoplasm of trachea [employer] 2025-02-12 11:31 Type 2 diabetes mellitus with h [facility]perglycemia [facility]12 11:31 Type 2 diabetes mellitus withou t complications [facility] 2025-02-12 11:31 Urinary tract infection, site n ot specified [facility] 2025-02-12 11:31 FPC (current) use of insu swati [employer] 2025-02-12 11:35 Type 2 diabetes mellitus withou t complications [facility] 2025-02-12 11:35 [employer] (current) use of insu swati [employer] 2025-02-12 14:04 Type 2 diabetes mellitus withou t complications [facility] 2025-02-12 14:04 [employer] (current) use of insu swati [employer] 2025-02-14 08:19 Malignant neoplasm of trachea [facility] 2025-02-14 08:19 Type 2 diabetes mellitus with h yperglycemia [facility]25-[facility]-14 08:19 Type 2 diabetes mellitus withou t complications [facility] 2025-02-14 08:19 Urinary tract infection, site n ot specified [employer] 2025-02-14 08:19 FPC (current) use of insu [employer] 2025-02-14 09:11 Malignant neoplasm of trachea [employer] 2025-02-14 09:11 Type 2 diabetes mellitus with h yperglycemia [employer] 2025-02-14 09:11 Type 2 diabetes mellitus withou t complications [employer] 2025-02-14 09:11 Urinary tract infection, site n ot specified [employer] 2025-02-14 09:11 [employer] (current) use of insu swati [employer] 2025-02-14 12:33 Malignant neoplasm of trachea [employer] 2025-02-14 12:33 Type 2 diabetes mellitus with h yperglycemia [employer] 2025-02-14 12:33 Type 2 diabetes mellitus withou t complications [employer] 2025-02-14 12:33 Urinary tract infection, site n ot specified [employer] 2025-02-14 12:33 [employer] (current) use of insu swati [employer] 2025-02-14 16:06 Malignant neoplasm of trachea W [facility] 2025-02-14 16:06 Type 2 diabetes mellitus with h yperglycemia [employer] 2025-02-14 16:06 Type 2 diabetes mellitus withou t complications [employer] 2025-02-14 16:06 Urinary tract infection, site n ot specified [employer] 2025-02-14 16:06 [employer] (current) use of insu [employer] 2025-02-18 15:33 Malignant neoplasm of trachea W [employer] 2025-02-18 15:33 Type 2 diabetes mellitus with h yperglycemia [employer] 2025-02-18 15:33 Type 2 diabetes mellitus withou t complications [employer] 2025-02-18 15:33 Urinary tract infection, site n ot specified [employer] 2025-02-18 15:33 FPC (current) use of insu [employer] 2025-02-19 07:44 Malignant neoplasm of trachea W [employer] 2025-02-19 08:01 Malignant neoplasm of trachea W [employer] 2025-02-19 08:01 Type 2 diabetes mellitus with h yperglycemia [employer] 2025-02-19 08:01 Type 2 diabetes mellitus withou t complications [employer] 2025-02-19 08:01 Urinary tract infection, site n ot specified [employer] 2025-02-19 08:01 [employer] (current) use of insu [employer] 2025-02-19 08:59 Malignant neoplasm of trachea W [employer] 2025-02-19 08:59 Type 2 diabetes mellitus with h yperglycemia [employer] 2025-02-19 08:59 Type 2 diabetes mellitus withou t complications [employer] 2025-02-19 08:59 Urinary tract infection, site n ot specified [employer] 2025-02-19 08:59 [employer] (current) use of insu [employer] 2025-02-19 09:18 Malignant neoplasm of trachea W [facility] 2025-02-19 09:20 Malignant neoplasm of trachea [facility] 2025-02-19 09:20 Type 2 diabetes mellitus with h yperglycemia [employer] 2025-02-19 09:20 Type 2 diabetes mellitus withou t complications [employer] 2025-02-19 09:20 [facility] 09:20 FPC (current) use of insu [employer] 2025-02-19 10:36 Malignant neoplasm of trachea [facility] 2025-02-19 10:36 Anemia, unspecified [facility] 2025-02-19 10:36 Type 2 diabetes mellitus with h yperglycemia [employer] 2025-02-19 10:36 Type 2 diabetes mellitus withou t complications [facility] 10:36 Urinary tract infection, site n ot specified [employer] 2025-02-19 10:36 Nausea with vomiting, unspecifi ed [employer] 2025-02-19 10:36 FPC (current) use of insu [employer] 2025-02-19 10:37 Malignant neoplasm of trachea [employer] 2025-02-19 10:37 Anemia, unspecified [facility] 2025-02-19 10:37 Type 2 diabetes mellitus with h yperglycemia [employer] 2025-02-19 10:37 Type 2 diabetes mellitus withou t complications [employer] 2025-02-19 10:37 Urinary tract infection, site n ot specified [employer] 2025-02-19 10:37 Nausea with vomiting, unspecifi ed [employer] 2025-02-19 10:37 [employer] (current) use of insu [employer] 2025-02-19 10:42 Malignant neoplasm of trachea [employer] 2025-02-19 10:42 Anemia, unspecified [facility] 2025-02-19 10:42 Type 2 diabetes mellitus with h yperglycemia [employer] 2025-02-19 10:42 Type 2 diabetes mellitus withou t complications [employer] 2025-02-19 10:42 Urinary tract infection, site n ot specified [employer] 2025-02-19 10:42 Nausea with vomiting, unspecifi ed [employer] 2025-02-19 10:42 FPC (current) use of insu swati [employer] 2025-02-19 10:43 Malignant neoplasm of trachea [facility] 2025-02-19 10:43 Anemia, unspecified [facility] 2025-02-19 10:43 Type 2 diabetes mellitus with h yperglycemia [employer] 2025-02-19 10:43 Type 2 diabetes mellitus withou t complications [facility] 10:43 Urinary tract infection, site n ot specified [employer] 2025-02-19 10:43 Nausea with vomiting, unspecifi ed [facility] 10:43 FPC (current) use of [employer] 2025-02-19 10:53 Malignant neoplasm of trachea [facility] 2025-02-19 10:53 Anemia, unspecified [facility] 2025-02-19 10:53 Type 2 diabetes mellitus with h yperglycemia [employer] 2025-02-19 10:53 Type 2 diabetes mellitus withou t complications [facility] 10:53 Urinary tract infection, site n ot specified [employer] 2025-02-19 10:53 Nausea with vomiting, unspecifi ed [facility]25-02-19 10:53 [employer] (current) use of [employer] 2025-02-20 00:03 Malignant neoplasm of trachea [employer] 2025-02-20 09:32 Malignant neoplasm of trachea [employer] 2025-02-20 09:32 Anemia, unspecified [facility] 2025-02-20 09:32 Type 2 diabetes mellitus with h yperglycemia [employer] 2025-02-20 09:32 Type 2 diabetes mellitus withou t complications [employer] 2025-02-20 09:32 Urinary tract infection, site n ot specified [employer] 2025-02-20 09:32 Nausea with vomiting, unspecifi ed [employer] 2025-02-20 09:32 FPC (current) use of insu [employer] 2025-02-20 11:35 Malignant neoplasm of trachea W [facility] 2025-02-20 11:35 Anemia, unspecified [facility] 2025-02-20 11:35 Type 2 diabetes mellitus with h yperglycemia [employer] 2025-02-20 11:35 Type 2 diabetes mellitus withou t complications [employer] 2025-02-20 11:35 Urinary tract infection, site n ot specified [employer] 2025-02-20 11:35 Nausea with vomiting, unspecifi ed [employer] 2025-02-20 11:35 FPC (current) use of [employer] 2025-02-20 13:44 Malignant neoplasm of trachea [employer] 2025-02-20 13:44 Anemia, unspecified [facility] 2025-02-20 13:44 Type 2 diabetes mellitus with h yperglycemia [employer] 2025-02-20 13:44 Type 2 diabetes mellitus withou t complications [employer] 2025-02-20 13:44 Urinary tract infection, site n ot specified [employer] 2025-02-20 13:44 Nausea with vomiting, unspecifi ed [employer] 2025-02-20 13:44 FPC (current) use of [employer] 2025-02-20 14:51 Hypotension, unspecified [employer] 2025-02-20 14:51 Weakness [employer] 2025-02-21 08:44 Malignant neoplasm of trachea [employer] 2025-02-21 08:44 Anemia, unspecified [facility] 2025-02-21 08:44 Type 2 diabetes mellitus with h yperglycemia [employer] 2025-02-21 08:44 Type 2 diabetes mellitus withou t complications [employer] 2025-02-21 08:44 Urinary tract infection, site n ot specified [employer] 2025-02-21 08:44 Nausea with vomiting, unspecifi ed [employer] 2025-02-21 08:44 [employer] (current) use of insu [employer] 2025-02-21 08:59 Malignant neoplasm of trachea [facility] 2025-02-21 08:59 Anemia, unspecified [facility] 2025-02-21 08:59 Type 2 diabetes mellitus with h yperglycemia [facility] 2025-02-21 08:59 Type 2 diabetes mellitus withou t complications [facility] 2025-02-21 08:59 Urinary tract infection, site n ot specified [employer] 2025-02-21 08:59 Nausea with vomiting, unspecifi ed [facility] 2025-02-21 08:59 [employer] (current) use of [employer] 2025-02-21 11:14 Malignant neoplasm of trachea [facility] 2025-02-21 11:14 Anemia, unspecified [facility] 2025-02-21 11:14 Type 2 diabetes mellitus with h yperglycemia [employer] 2025-02-21 11:14 Type 2 diabetes mellitus withou t complications [facility] 2025-02-21 11:14 Urinary tract infection, site n ot specified [employer] 2025-02-21 11:14 Nausea with vomiting, unspecifi ed [facility] 2025-02-21 11:14 Diarrhea, unspecified [facility] 2025-02-21 11:14 FPC (current) use of [employer] 2025-02-21 11:20 Malignant neoplasm of trachea [facility] 2025-02-21 11:20 Anemia, unspecified [facility] 2025-02-21 11:20 Type 2 diabetes mellitus with h yperglycemia [employer] 2025-02-21 11:20 Type 2 diabetes mellitus withou t complications [employer] 2025-02-21 11:20 Urinary tract infection, site n ot specified [employer] 2025-02-21 11:20 Nausea with vomiting, unspecifi ed [employer] 2025-02-21 11:20 Diarrhea, unspecified [facility] 2025-02-21 11:20 FPC (current) use of insu [employer] 2025-02-22 00:00 Type 2 diabetes mellitus with h yperglycemia [facility] 2025-02-22 00:00 Type 2 diabetes mellitus withou t complications [facility] 2025-02-22 00:00 [facility] 2025-02-22 00:00 [employer] (current) use of [employer] 2025-02-26 08:18 Malignant neoplasm of trachea [facility] 2025-02-26 08:18 Anemia, unspecified [facility] 2025-02-26 08:18 Type 2 diabetes mellitus with h yperglycemia [facility] 2025-02-26 08:18 Type 2 diabetes mellitus withou t complications [facility] 2025-02-26 08:18 Urinary tract infection, site n ot specified [employer] 2025-02-26 08:18 Nausea with vomiting, unspecifi ed [facility] 2025-02-26 08:18 Diarrhea, unspecified [place] [facility] 2025-02-26 08:18 FPC (current) use of [employer] 2025-02-26 08:24 Malignant neoplasm of trachea [facility] 2025-02-26 08:24 Anemia, unspecified [facility] 2025-02-26 08:24 Type 2 diabetes mellitus with h yperglycemia [employer] 2025-02-26 08:24 Type 2 diabetes mellitus withou t complications [facility] 2025-02-26 08:24 Urinary tract infection, site n ot specified [employer] 2025-02-26 08:24 Nausea with vomiting, unspecifi ed [employer] 2025-02-26 08:24 Diarrhea, unspecified [facility] 2025-02-26 08:24 FPC (current) use of [employer] 2025-02-26 08:25 Malignant neoplasm of trachea [facility] 2025-02-26 08:25 Anemia, unspecified [facility] 2025-02-26 08:25 Type 2 diabetes mellitus with h [facility]perglycemia [facility] 08:25 Type 2 diabetes mellitus withou t complications [facility] 2025-02-26 08:25 Urinary tract infection, site n ot specified [facility] 2025-02-26 08:25 Nausea with vomiting, unspecifi ed [facility] 2025-02-26 08:25 Diarrhea, unspecified [facility] 2025-02-26 08:25 [employer] (current) use of insu swati [employer] 2025-02-26 08:55 Malignant neoplasm of trachea [facility] 2025-02-26 08:55 Anemia, unspecified [facility] 2025-02-26 08:55 Type 2 diabetes mellitus with h yperglycemia [facility]26 08:55 Type 2 diabetes mellitus withou t complications [facility] 2025-02-26 08:55 Urinary tract infection, site n ot specified [employer] 2025-02-26 08:55 Nausea with vomiting, unspecifi ed [facility] 2025-02-26 08:55 Diarrhea, unspecified [facility] 2025-02-26 08:55 [employer] (current) use of [employer] 2025-02-26 09:56 Malignant neoplasm of trachea [facility] 2025-02-26 09:56 Anemia, unspecified [facility] 2025-02-26 09:56 Type 2 diabetes mellitus with h yperglycemia [facility]26 09:56 Type 2 diabetes mellitus withou t complications [facility] 2025-02-26 09:56 Urinary tract infection, site n ot specified [employer] 2025-02-26 09:56 Nausea with vomiting, unspecifi ed [employer] 2025-02-26 09:56 Diarrhea, unspecified [facility] 2025-02-26 09:56 FPC (current) use of [employer] 2025-02-28 08:39 Malignant neoplasm of trachea [facility] 2025-02-28 08:39 Anemia, unspecified [place] 2025-02-28 08:39 Type 2 diabetes mellitus with h yperglycemia [facility] 2025-02-28 08:39 Type 2 diabetes mellitus withou t complications [facility] 2025-02-28 08:39 Urinary tract infection, site n ot specified [facility] 2025-02-28 08:39 Nausea with vomiting, unspecifi ed [facility] 2025-02-28 08:39 Diarrhea, unspecified [place] [facility] 2025-02-28 08:39 [employer] (current) use of [employer] 2025-02-28 09:15 Malignant neoplasm of trachea [facility] 2025-02-28 09:15 Anemia, unspecified [place] 2025-02-28 09:15 Type 2 diabetes mellitus with h yperglycemia [facility] 2025-02-28 09:15 Type 2 diabetes mellitus withou t complications [facility] 2025-02-28 09:15 Urinary tract infection, site n ot specified [employer] 2025-02-28 09:15 Nausea with vomiting, unspecifi ed [facility]25-02[facility]28 09:15 Diarrhea, unspecified [place] [facility] 2025-02-28 09:15 FPC (current) use of [employer] 2025-02-28 09:21 Malignant neoplasm of trachea [facility] 2025-02-28 09:21 Anemia, unspecified [facility] 2025-02-28 09:21 Type 2 diabetes mellitus with h yperglycemia [facility]25-02-28 09:21 Type 2 diabetes mellitus withou t complications [facility] 2025-02-28 09:21 Urinary tract infection, site n ot specified [employer] 2025-02-28 09:21 Nausea with vomiting, unspecifi ed [facility] 2025-02-28 09:21 Diarrhea, unspecified [facility] 2025-02-28 09:21 FPC (current) use of [employer] 2025-02-28 14:39 [facility]a [facility] 2025-[facility]-28 14:39 Anemia, unspecified [place] 2025-02-28 14:39 Type 2 diabetes mellitus with h yperglycemia [facility] 2025-02-28 14:39 Type 2 diabetes mellitus withou t complications [facility] 2025-02-28 14:39 Urinary tract infection, site n ot specified [facility] 2025-02-28 14:39 Nausea with vomiting, unspecifi ed [facility] 2025-02-28 14:39 Diarrhea, unspecified [place] [facility] 2025-02-28 14:39 [employer] (current) use of insu [employer] 2025-02-28 14:41 Malignant neoplasm of trachea [facility] 2025-02-28 14:41 Anemia, unspecified [place] 2025-02-28 14:41 Type 2 diabetes mellitus with h yperglycemia [facility] 2025-02-28 14:41 Type 2 diabetes mellitus withou t complications [facility] 2025-02-28 14:41 Urinary tract infection, site n ot specified [facility] 2025-02-28 14:41 Nausea with vomiting, unspecifi ed [facility] 2025-02-28 14:41 Diarrhea, unspecified [facility] 2025-02-28 14:41 FPC (current) use of [employer] 2025-03-05 08:32 Malignant neoplasm of trachea [facility] 2025-03-05 08:32 Anemia, unspecified [place] 2025-03-05 08:32 Type 2 diabetes mellitus with h yperglycemia [facility]25-03-05 08:32 Type 2 diabetes mellitus withou t complications [facility] 2025-03-05 08:32 Urinary tract infection, site n ot specified [facility] 2025-03-05 08:32 Nausea with vomiting, unspecifi ed [facility] 2025-03-05 08:32 Diarrhea, unspecified [facility] 2025-03-05 08:32 [employer] (current) use of [employer] [facility] 2025-03-05 08:33 Malignant neoplasm of trachea [facility] 2025-03-05 08:33 Anemia, unspecified [facility] 2025-03-05 08:33 Type 2 diabetes mellitus with h yperglycemia [facility] 2025-03-05 08:33 Type 2 diabetes mellitus withou t complications [facility] 2025-03-05 08:33 Urinary tract infection, site n ot specified [facility] 2025-03-05 08:33 Nausea with vomiting, unspecifi ed [facility] 2025-03-05 08:33 Diarrhea, unspecified [facility] 2025-03-05 08:33 FPC (current) use of insu swati [facility] 2025-03-05 11:31 Malignant neoplasm of trachea [facility] 2025-03-05 11:31 Anemia, unspecified [facility] 2025-03-05 11:31 Other pulmonary embolism withou t acute cor pulmonale [facility] 2025-03-05 11:31 Other specified diseases of upp er respiratory tract [facility] 2025-03-05 11:31 Pain in right knee [facility] 2025-03-05 11:31 Pain in left knee [facility] 2025-03-05 11:31 Encounter for genera l adult medical examination without abnormal findings [facility] 2025-03-05 11:31 Encounter for antineoplastic ch emotherapy [facility] 2025-03-05 11:31 Gastrostomy status [facility] 2025-03-05 11:35 Malignant neoplasm of trachea [facility] 2025-03-05 11:35 Anemia, unspecified [facility] 2025-03-05 11:35 Type 2 diabetes mellitus with h yperglycemia [facility] 2025-03-05 11:35 Type 2 diabetes mellitus withou t complications [facility] 2025-03-05 11:35 Urinary tract infection, site n ot specified [facility] 2025-03-05 11:35 Nausea with vomiting, unspecifi ed [facility] 2025-03-05 11:35 Diarrhea, unspecified [place] [facility] 2025-03-05 11:35 [employer] (current) use of insu [employer]ati [employer] 2025-03-05 11:37 Malignant neoplasm of trachea [facility] 2025-03-05 11:37 Anemia, unspecified [place] [facility] 2025-03-05 11:37 Type 2 diabetes mellitus with h yperglycemia [facility] 2025-03-05 11:37 Type 2 diabetes mellitus withou t complications [facility] 2025-03-05 11:37 Urinary tract infection, site n ot specified [employer] 2025-03-05 11:37 Nausea with vomiting, unspecifi ed [facility] 2025-03-05 11:37 Diarrhea, unspecified [facility] 2025-03-05 11:37 [employer] (current) use of insu [employer] 2025-03-06 09:17 Malignant neoplasm of trachea [facility] 2025-03-06 09:17 Anemia, unspecified [place] 2025-03-06 09:17 Type 2 diabetes mellitus with h yperglycemia [facility]25-03-06 09:17 Type 2 diabetes mellitus withou t complications [facility] 2025-03-06 09:17 Urinary tract infection, site n ot specified [employer] 2025-03-06 09:17 Nausea with vomiting, unspecifi ed [facility] 2025-03-06 09:17 Diarrhea, unspecified [place] [facility] 2025-03-06 09:17 FPC (current) use of [employer] 2025-03-07 08:51 Malignant neoplasm of trachea [facility] 2025-03-07 08:51 Anemia, unspecified [place] [facility] 2025-03-07 08:51 Type 2 diabetes mellitus with h yperglycemia [facility] 2025-03-07 08:51 Type 2 diabetes mellitus withou t complications [facility] 2025-03-07 08:51 Urinary tract infection, site n ot specified [employer] 2025-03-07 08:51 Nausea with vomiting, unspecifi ed [facility] 2025-03-07 08:51 Diarrhea, unspecified [facility] 2025-03-07 08:51 [employer] (current) use of insu swati [facility] 2025-03-07 16:05 Malignant neoplasm of trachea [facility] 2025-03-07 16:05 Anemia, unspecified [place] [facility] 2025-03-07 16:05 Type 2 diabetes mellitus with h yperglycemia [facility] 2025-03-07 16:05 Type 2 diabetes mellitus withou t complications [facility] 2025-03-07 16:05 Urinary tract infection, site n ot specified [facility] 2025-03-07 16:05 Nausea with vomiting, unspecifi ed [facility] 2025-03-07 16:05 Diarrhea, unspecified [facility] 2025-03-07 16:05 [employer] (current) use of insu swati [facility] 2025-03-07 16:19 Malignant neoplasm of trachea [facility] [facility] 2025-03-07 16:19 Anemia, unspecified [facility] 2025-03-07 16:19 Type 2 diabetes mellitus with h yperglycemia [facility] 2025-03-07 16:19 Type 2 diabetes mellitus withou t complications [facility] 2025-03-07 16:19 Hypoglycemia, unspecified [facility] 2025-03-07 16:19 Hypotension, unspecified idbe [facility] [facility] 2025-03-07 16:19 Bronchitis, not specified as ac samish or chronic [facility] 2025-03-07 16:19 [facility] 2025-03-07 16:19 Urinary tract infection, site n ot specified [facility] 2025-03-07 16:19 Hemoptysis [facility] 2025-03-07 16:19 Other specified cough [facility] 2025-03-07 16:19 Cough, unspecified id[facility] 2025-03-07 16:19 Shortness of breath [facility] 2025-03-07 16:19 Other forms of dyspnea [facility] 2025-03-07 16:19 Wheezing [facility] 2025-03-07 16:19 Other chest pain [facility] 2025-03-07 16:19 Unspecified abdominal pain [facility] 2025-03-07 16:19 Nausea with vomiting, unspecifi ed [facility] 2025-03-07 16:19 Dysphagia, unspecified [facility] 2025-03-07 16:19 Diarrhea, unspecified [facility] 2025-03-07 16:19 Pain, unspecified [facility] 2025-03-07 16:19 Weakness [facility] 2025-03-07 16:19 Hyperglycemia, unspecified [facility] 2025-03-07 16:19 FPC (current) use of [employer] 2025-03-08 08:23 Malignant neoplasm of trachea [facility] [employer] 2025-03-08 08:23 Anemia, unspecified [facility] 2025-03-08 08:23 Type 2 diabetes mellitus with h yperglycemia [facility] 2025-03-08 08:23 Type 2 diabetes mellitus withou t complications [facility] 2025-03-08 08:23 Urinary tract infection, site n ot specified [facility] 2025-03-08 08:23 Nausea with vomiting, unspecifi ed [facility] 2025-03-08 08:23 Diarrhea, unspecified [facility] 2025-03-08 08:23 [employer] (current) use of [employer] Results/Labs test date facility value unit notes Result panel 1 SARS-CoV-2 -RESP PCR PANEL 2024-12-12 19:23 [employer] NOT DETECTED (missing) A negative test result for this test indicates that SARS-CoV-2 RNA was not present in the specimen above the limit of detection. Testing performed on the Preclick RP2.1 Panel, a multiplexed nucleic acid repiratory [...] H3, and H1-2009 not detected by the Preclick RP2.1 Panel, a multiplexed nucleic acid test [...] tract infection. CORONAVIRUS 229E-RESP PCR 2024-12-12 19:23 [facility] NOT DETECTED (missing) Negative results in [...] not be detected by nasopharyngeal specimen. CORONAVIRUS [id number] PCR 2024-12-12 19:23 [facility] NOT DETECTED (missing) Negative results in the setting ofa respiratory illness may be due to infection with pathogens not detected by this test, or lower respiratory tract infection that may not be detected by nasopharyngeal specimen. CORONAVIRUS [id number] PCR 2024-12-12 19:23 [facility] NOT DETECTED [...] reference ranges. HGB - HEMOGLOBIN 2024-12-12 19:24 [facility] 10.4 g /dl (missing) CHLORIDE 2024-12-12 19:24 [facility] [employer] 100 mmol/l As of May 2023 testing method has changed, this may include reference ranges. GFR - MDRD 2024-12-12 19:24 [facility] 127 (jihan givens) Social History date description facility
--- NOTE | 2025-03-10 23:08 | HISTORY & PHYSICAL EXAMINATION ---
Chief Complaint Chief Complaint Chief Complaint: Shortness of breath History of Present Illness Admitted From Admitted From:: ER History Obtained From Records Reviewed: Yes History obtained from: Pt, staff, chart Exam Limitations: Virtual exam History of Present Illness HPI Comment/Other: H&P was conducted via video remotely, using [employer]. Patient is in [place]. Physician is in [place]. RN is at bedside. 59 yo F with PMH of tracheal poorly differentiated squamous cell carcinoma dx'd in 07/2024 s/p resection and tracheal stent s/p Radiotx and now on Chemotherapy, PE d/t tracheal mass--off Eliquis x 1 week d/t insurance issues, COPD, DM type 2, HLD, h/o tobacco use, h/o ETOH use disorder now in remission with recent hospitalization for Aspiration PNA presented to the ER with c/o 3 day h/o cough with yellow sputum, SOB, weakness, fatigue. No F/C. No abdo pain. +Nausea. No CP. No hemoptysis. No urinary symptoms.Oximetry at home 95%. Pt has been using her usual Xopenex nebulizer and budesonide inhalers. Pt on Home oxygen at night at baseline. Pt was hospitalized at [facility] from 01/31/25-02/06/25 for Aspiration PNA with hypoxia. She was treated with Cefazolin/LVQ, then D/C'd on Linezolide/LVQ. BC 11/22 + for MSSA.. Pt had tracheal stent revision by Biotechnician. Pt was seen by Speech Therapist who recommended level 5 minced and moist diet. Pt felt that she was close to her baseline soon after she returned home and did not have worsening symptoms again until 3 days ago. Prior to her current symptoms, no unusual activity. Pt mostly uses her PEG tube for feeds, as she has poor interest in food, but she does eat soft foods occasionally. No choking or aspiration. She did have Chemotherapy last Tuesday. Pt received radiation therapy in 10/2024 and is currently on Chemotherapy. Her last treatment was on 03/05/25 with Carboplatin + Abraxane + Pembrolizumab. In the ER, Na 133, K 2.8, Glc 173, Hgb 7.1, Viral Resp neg CXR: Patchy dependent opacities. Differential includes drug reaction, aspiration or infection. CTA Chest: No pulmonary embolus. Dependent consolidation. Differential includes drug reaction, aspiration, multifocal pneumonia Diffuse tracheal thickening, with tracheal stent present. Pt was given Rocephin/Azithromycin/Flagyl, Decadron, K, nebs, MagSO4 2 gm in the ER. Aspiration PNA Recent PNA and MSSA bacteremia Tracheal squamous cell carcinoma (4) Tracheal stenosis: Plan: Status post tracheal stenting on 08/13/2024. She underwent bronchoscopy with cryo ablation on 01/16/2025. She underwent stent exchange on 02/01/2025. Follow-up with Hortencia Esparza pulmonology. Review of Systems Status of ROS: 10 or more systems reviewed and unremarkable except as noted in history and below PFSH Active Problems All Active Problems (Updated 03/10/25 @ 22:10 by Solomon Grande MD) Aspiration pneumonia (Acute) Acute hypokalemia (Acute) RAD (reactive airway disease) with wheezing (Acute) Productive cough (Acute) Acute dyspnea (Acute) Hiccups (Acute) Chronic pain (Acute) Nausea and vomiting (Acute) EMILY (acute kidney injury) (Acute) Status post chemotherapy (Chronic) Shortness of breath (Acute) Joint pain (Acute) Anemia (Acute) Fatigue due to treatment (Acute) Drug-induced diarrhea (Acute) Electrolyte and fluid disorder (Acute) 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) Diabetes mellitus type 2, insulin dependent (Chronic) Major depression (Chronic) Encounter for education about infusion care (Acute) Throat pain (Acute) Right pulmonary embolus (Acute) Type 2 diabetes mellitus with diabetic neuropathy (Chronic) GERD without esophagitis (Chronic) Anemia associated with chemotherapy (Chronic) Anxiety as acute reaction to gross stress (Acute) Tobacco use disorder, moderate, in sustained remission, dependence (Chronic) Palliative care patient (Acute) Counseling regarding advanced directives and goals of care (Acute) Joint pain following chemotherapy (Acute) Chronic pancreatitis (Acute) Severe protein-calorie malnutrition (Chronic) Alcohol dependence, in remission (Chronic) G tube feedings (Acute) Healthcare maintenance (Acute) Cancer associated pain (Chronic) Tracheal stenosis (Chronic) Encounter for antineoplastic chemotherapy (Acute) Medical History Medical History (Updated 03/10/25 @ 22:10 by Solomon Grande MD) Acidosis, lactic Nausea GERD (gastroesophageal reflux disease) Anemia Hypomagnesemia Type 2 diabetes mellitus with hyperglycemia Weight loss Diabetic eye exam 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 Numbness and tingling sensation of skin (04/20/24) Recurrent UTI Dyspnea and respiratory abnormalities Chronic cough (03/09/24) Mixed hyperlipidemia (03/22/24) Tracheal stenosis after procedure Type 2 diabetes mellitus with hyperglycemia, without long-term current use of insulin (03/22/24) Seasonal allergies (03/09/24) Atrophy of pancreas Tinnitus, bilateral (03/09/24) Hypochloremia (03/22/24) Bulimia nervosa (03/09/24) Anorexia nervosa (03/09/24) Alcohol abuse, episodic (03/09/24) Knee cartilage, torn, left Surgical History Surgical History H/O knee surgery 3 in the S/P bronchoscopy with biopsy History of reversal of tubal ligation History of tubal ligation History of laparoscopy Family History Family History Other Family history unknown Social History Social History Smoking Status: Former smoker If you are a former smoker, when did you quit? (Date/Year): 2010 Number of Years Smoked: 20 How many cigarettes a day do you smoke? (20 cigarettes=1 Pk): 20 Second hand tobacco smoke exposure: Yes Do you dip or chew tobacco?: No Do you vape?: No Patient requests smoking cessation consult: No Initiate information on smoking cessation: No Living arrangement: At home Marital Status: Living Condition: With spouse/s.o. 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 Service: No Are you following a diet prescribed by a doctor: Yes Are you following a special diet: Yes POLST Patient has POLST: No POLST Status: Full Code (by default ) Meds/Allgy Home Medications Ambulatory Orders Medication Instructions Recorded Confirmed sodium chloride 3 % for 4 ml inhalation BID 09/05/24 03/10/25 nebulization prochlorperazine maleate 10 mg 10 mg PO TID PRN nausea and 10/25/24 03/10/25 tablet (Compazine) vomiting #90 tabs naloxone 4 mg/actuation nasal 4 mg intranasal Q2M PRN opioid 10/30/24 03/10/25 spray (Narcan) overdose #2 ea budesonide-formoterol HFA 80 2 puff inhalation BID #10.2 grams 11/07/24 03/10/25 mcg-4.5 mcg/actuation aerosol inhaler (Symbicort) loperamide 2 mg tablet (Imodium 2 mg PO Q4H PRN diarrhea 11/21/24 03/10/25 A-D) lancets 30 gauge (CareTouch Twist #100 ea 11/23/24 03/02/25 Lancet) pen needle, diabetic 31 gauge x #100 ea 11/23/24 03/02/25 3/16" (Comfort EZ Pen [place]) apixaban 2.5 mg tablet 2.5 mg PO BID #60 tabs 11/29/24 03/10/25 insulin lispro 100 unit/mL 1 - 4 unit (0.01 - 0.04 mL) subcut 12/03/24 03/10/25 subcutaneous pen (Humalog KwikPen TID #15 mL (U-100) Insulin) lidocaine HCl 2 % mucosal solution 1 applic mucous membrane TID PRN 12/05/24 03/10/25 (Lidocaine Viscous) pain #100 mL lidocaine 5 % topical patch 1 patch topical QDAY #30 ea 12/13/24 03/10/25 lidocaine-prilocaine 2.5 %-2.5 % 30 g topical ONCE PRN pain #30 01/01/25 03/10/25 topical cream grams benzonatate 200 mg capsule See Rx Instructions .Route 01/10/25 03/10/25 .COMPLEX #30 caps blood sugar diagnostic (FreeStyle #100 ea 01/10/25 03/02/25 Lite Strips) olanzapine 5 mg tablet 5 mg PO QPM Nausea #60 tabs 01/10/25 03/10/25 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 sensor (FreeStyle #6 ea 01/17/25 03/02/25 Deep 3 Sensor device) diphenoxylate-atropine 2.5 1 tab PO QID PRN diarrhea #60 tabs 01/18/25 03/10/25 mg-0.025 mg tablet (Lomotil) 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 sensor (FreeStyle #3 ea 01/22/25 03/02/25 Deep 3 Plus Sensor device) hydromorphone 1 mg/mL oral liquid 3 - 4 mg (3 - 4 mL) PO Q4H PRN 01/24/25 03/10/25 pain #473 mL ondansetron 8 mg disintegrating 8 mg PO Q8H PRN nausea and 01/24/25 03/10/25 tablet vomiting #90 tabs 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,media planner,cont #1 ea 01/26/25 03/02/25 (FreeStyle Deep 3 [place]) levalbuterol HCl 1.25 mg/3 mL 1.25 mg inhalation Q12H 02/07/25 03/10/25 solution for nebulization miconazole nitrate 200 mg/5 gram 1 appful vaginal 02/07/25 03/02/25 (4 %) vaginal cream famotidine 40 mg/5 mL (8 mg/mL) 40 mg (5 mL) PO QDAY #150 mL 02/08/25 03/10/25 oral suspension guaifenesin 100 mg/5 mL oral liquid 200 mg PO Q4H PRN congestion 02/10/25 03/10/25 insulin glargine 100 unit/mL (3 5 - 10 unit subcut DAILY 02/10/25 03/10/25 mL) subcutaneous pen (Lantus Solostar U-100 Insulin) gabapentin 300 mg/6 mL (6 mL) oral 200 - 300 mg PO TID 02/12/25 03/10/25 solution acetaminophen 500 mg tablet 1,000 mg (2 x 500 mg) PO TID PRN 02/19/25 03/10/25 pain #180 tabs oihhmt-gvcdbqgh-zrfeqfh 1 cap PO BID #60 caps 02/19/25 03/10/25 12,000-38,000-60,000 unit capsule,delayed rel (Creon) mirtazapine 7.5 mg tablet 15 mg (2 x 7.5 mg) feeding tube HS 02/19/25 03/02/25 #90 tabs metformin 1,000 mg tablet 500 mg (1/2 x 1,000 mg) feeding 02/21/25 03/10/25 tube HS #180 tabs alprazolam 0.5 mg disintegrating 0.5 mg PO BID-TID PRN Anxiety #60 03/02/25 03/10/25 tablet tabs Allergies Allergies Allergy/AdvReac Type Severity Reaction Status Date / Time oxycodone Allergy Severe Rash Verified 03/10/25 17:52 Sulfa (Sulfonamide Allergy Rash Verified 03/10/25 17:52 Antibiotics) paclitaxel AdvReac Severe Respiratory Verified 03/10/25 17:52 codeine AdvReac Emesis Verified 03/10/25 17:52 Exam Exam Vital Signs: Vital Signs x48h Temp Pulse Resp BP Pulse Ox 03/10/25 20:20 100 24 104/67 93 03/10/25 18:32 88 20 03/10/25 17:52 36.5 C 105 H 24 117/62 94 Constitutional normal general appearance HENMT normocephalic and head/scalp atraumatic Eyes EOMs intact bilaterally and no scleral icterus Respiratory cart stethoscope not working; Per 1st ER Provider: breath sounds equal bilaterally, normal respiratory effort, wheezing noted (expiratory wheezes) and (scattered wheezes), rales noted (base) (left) and no retractions. Per 2nd ER Provider s/p nebs: no wheezing heard, +basilar crackles Cardiovascular cart stethoscope not working; per ER Provider: RRR, no murmurs Gastrointestinal per ER Provider: non-distended, NT, Soft, +PEG tube Extremities Per ER Provider: no tenderness and full ROM Frail extremities with very low muscle mass Neurology A+Ox3, normal speech, cooperative; per ER Provider: NFD Conclusion/Plan Problem List (1) Aspiration pneumonia: Plan: Aspiration PNA Recent PNA and MSSA bacteremia Tracheal squamous cell carcinoma Tracheal stenosis s/p recent stent revision H/o PE-off Eliquis x 1 week d/t insurance issues Cough SOB Weakness -Viral Resp panel neg -CXR: Patchy dependent opacities. Differential includes drug reaction, aspiration or infection. -CTA Chest: No pulmonary embolus. Dependent consolidation. Differential includes drug reaction, aspiration, multifocal pneumonia Diffuse tracheal thickening, with tracheal stent present. -Pt was given Rocephin/Azithromycin/Flagyl, Decadron, K, nebs, MagSO4 2 gm in the ER. -admit to Med Surg -O2 support PRN -nebs PRN -Unasyn ordered -IVF -Nutrition consult for help with PEG tube feedings -Pt was seen by Speech Therapist at [facility] who recommended level 5 minced and moist diet; continue -PT/OT eval -CM consult for help with Eliquis/insurance -restart home medications: Eliquis -continue home meds: Hydromorphone -s/p tracheal stenting on 08/13/2024, bronchoscopy with cryo ablation on 01/16/2025, stent exchange on 02/01/2025. -s/p radiation therapy in 10/2024 and is currently on Chemotherapy. Her last treatment was on 03/05/25 with Carboplatin + Abraxane + Pembrolizumab. -continue F/u with Oncologist, Biotechnician COPD -continue home medications: Xopenex, steroid MDI Hyponatremia Hypokalemia Poor appetite -Na 133, K 2.8, -IVF -replace K PRN -continue home medications: Mirtazapine, Olanzapine Anemia -Hgb 7.1 -r/t cancer -no signs of bleeding -monitor DM type 2 HLD -Glc 173 -accuchecks, SS Insulin, Hypoglycemic protocol -hold home medications: Metformin, Insulin -check Hgba1c GERD -continue home medications: Pepcid Anxiety -continue home medications: Xanax VTE Prophylaxis: continue Eliquis Code Status:D/W pt; she is Full Code ~Janeen Blount MD Hospitalist Qualifiers: Aspiration pneumonia type: unspecified Laterality: unspecified laterality Lung location: unspecified part of lung Qualified Code(s): J69.0 - Pneumonitis due to inhalation of food and vomit Lab Results Lab results reviewed: Yes 03/10/25 18:35 03/10/25 18:35
[2025-03-11] MEDS: SODIUM CHLORIDE 0.9% 1,000 ML IV SCH (01:59)
[2025-03-11] MEDS: SODIUM CHLORIDE FLUSH 0.9% 10 ML SYRINGE IVP SCH (02:03)
[2025-03-11] MEDS ORDERED: guaiFENesin 600 MG TABLET PO PRN (02:22)
[2025-03-11] MEDS ORDERED: LIDOCAINE PRILOCAINE TOP PRN (02:37)
[2025-03-11] MEDS ORDERED: ALPRAZolam 0.25 MG TABLET PO PRN (02:37)
[2025-03-11] MEDS ORDERED: FAMOTIDINE PO SCH (02:37)
[2025-03-11] MEDS ORDERED: ONDANSETRON ODT 4 MG TABLET PO PRN (02:37)
[2025-03-11] MEDS ORDERED: NALOXONE HCL NASAL SPRAY KIT NAS PRN (02:37)
[2025-03-11] MEDS ORDERED: NON FORMULARY MED (Hydromorphone 1 mg/mL liquid) PO PRN (02:37)
[2025-03-11] MEDS: ZINC OXIDE 20% OINT 60 GM TUBE TP PRN (04:10)
[2025-03-11] MEDS: AMPICILLIN/SULBACTAM 3 GM in SODIUM CHLORIDE 0.9% MINIBAG 100 ML IV SCH ×2 (04:10→10:25)
[2025-03-11] MEDS: guaiFENesin 100 MG/5 ML UDC PO PRN (04:11)
[2025-03-11] MEDS: BENZONATATE 100 MG CAPSULE PO PRN (04:11)
[2025-03-11] MEDS: LIDOCAINE VISCOUS 2% 15 ML UDC MM PRN (04:17)
[2025-03-11] MEDS: APIXABAN 2.5 MG TABLET PO SCH (04:19)
[2025-03-11] MEDS: ACETAMINOPHEN 500 MG TABLET PO PRN (04:23)
[2025-03-11] MEDS: HYDROmorphone 2 MG TABLET PO PRN (05:27)
[2025-03-11] MEDS: GABAPENTIN 100 MG CAPSULE PO SCH (05:35)
[2025-03-11] MEDS ORDERED: GABAPENTIN 300 MG/6 ML PO SCH (06:00)
[2025-03-11] MEDS: DIPHENOX/ATROPINE 2.5/0.025 MG TABLET PO PRN (06:32)
[2025-03-11 06:40] LABS: BASOPHILS % (AUTO) 1.7 %; HCT - HEMATOCRIT 22.8 % (37.0-47.0); HGB - HEMOGLOBIN 7.5 g/dL (12.0-16.0); LYMPHOCYTES % (AUTO) 4.1 %; MEAN CORPUSCULAR HEMOGLOBIN 30.2 pg (27.0-31.0); MEAN CORPUSCULAR HGB CONC 32.9 g/dL (32.0-36.0); MEAN CORPUSCULAR VOLUME 91.9 fL (81.0-99.0); MEAN PLATELET VOLUME 9.3 fL (7.9-10.8); MONOCYTES % (AUTO) 5.5 %; PLT - PLATELET COUNT 156 10^3/uL (130-450); RED BLOOD COUNT 2.48 10^6/uL (4.20-5.40); RED CELL DISTRIBUTION WIDTH 15.5 % (12.0-15.0); WHITE BLOOD COUNT 4.2 x10^3/uL (4.8-10.8)
[2025-03-11 06:43] LABS: ABNORMAL LYMPHS % (MANUAL) 0 %; BAND NEUTROPHILS % (MANUAL) 0 %
[2025-03-11 06:57] LABS: LYMPHOCYTES # (MANUAL) 0.3 10^3/uL (1.5-3.5); LYMPHOCYTES % (MANUAL) 7 %; MONOCYTES # (MANUAL) 0.2 10^3/uL (0.0-1.0); NEUTROPHILS # (MANUAL) 3.7 10^3/uL (1.5-6.6)
[2025-03-11 06:58] LABS: DIFFERENTIAL COMMENT MANUAL DIFFERENTIAL; PLATELET ESTIMATE, MANUAL NORMAL (130-450,000) (NORMAL); PLATELET MORPHOLOGY NORMAL APPEARANCE (NORMAL); RBC MORPHOLOGY (MULTIPLE) NORMAL APPEARANCE (NORMAL); WBC MORPHOLOGY (MULTIPLE) 2+ TOXIC GRANULATION (NORMAL)
[2025-03-11 07:04] LABS: CALCIUM 8.3 mg/dL (8.5-10.3); CREATININE 0.7 mg/dL (0.6-1.3); POTASSIUM 4.4 mmol/L (3.5-4.5)
[2025-03-11] MEDS: LEVALBUTEROL 1.25 MG/3 ML NEB INH SCH (08:15)
[2025-03-11] MEDS: FORMOTEROL FUMARATE NEB 20 MCG/2 ML INH SCH (08:16)
[2025-03-11] MEDS: BUDESONIDE 0.5 MG/2 ML NEB INH SCH (08:16)
[2025-03-11] MEDS: FAMOTIDINE 20 MG TABLET PO SCH (08:45)
[2025-03-11] MEDS: INSULIN LISPRO 300 UNIT/3 ML PEN SUBQ SCH ×2 (08:45→17:11)
[2025-03-11] MEDS: INSULIN GLARGINE-YFGN 300 UNIT/3 ML PEN SUBQ SCH (08:45)
[2025-03-11] MEDS: LIDOCAINE PATCH 4% TOP SCH (08:46)
[2025-03-11] MEDS: LIPASE/PROTEASE/AMYLASE CAPSULE PO SCH (08:49)
[2025-03-11] MEDS ORDERED: [UNRECOGNIZED DRUG - OTHER] INH SCH (09:00)
[2025-03-11] MEDS ORDERED: MICONAZOLE NITRATE VG SCH (09:00)
[2025-03-11] MEDS ORDERED: BUDESONIDE FORMOTEROL INH SCH (09:00)
[2025-03-11 10:30] LABS: ESTIMATED AVERAGE GLUCOSE 154 mg/dL (70-100)
--- NOTE | 2025-03-11 12:25 | PHARMACY PROGRESS NOTE ---
Best Possible Medication History Admit Date and Time: 03/10/25 4715 Home Medications Medication Instructions Recorded Confirmed Type sodium chloride 3 % for 4 ml inhalation BID 09/05/24 03/10/25 History nebulization prochlorperazine maleate 10 mg 10 mg PO TID PRN nausea and 10/25/24 03/11/25 Rx tablet (Compazine) vomiting #90 tabs naloxone 4 mg/actuation nasal 4 mg intranasal Q2M PRN opioid 10/30/24 03/10/25 Rx spray (Narcan) overdose #2 ea budesonide-formoterol HFA 80 2 puff inhalation BID #10.2 grams 11/07/24 03/10/25 Rx mcg-4.5 mcg/actuation aerosol inhaler (Symbicort) loperamide 2 mg tablet (Imodium 2 mg PO Q4H PRN diarrhea 11/21/24 03/10/25 History A-D) lancets 30 gauge (CareTouch Twist #100 ea 11/23/24 03/02/25 Rx Lancet) pen needle, diabetic 31 gauge x #100 ea 11/23/24 03/02/25 Rx 3/16" (Comfort EZ Pen [place]) insulin lispro 100 unit/mL 1 - 4 unit (0.01 - 0.04 mL) subcut 12/03/24 03/10/25 Rx subcutaneous pen (Humalog KwikPen TID #15 mL (U-100) Insulin) lidocaine HCl 2 % mucosal solution 1 applic mucous membrane TID PRN 12/05/24 03/10/25 Rx (Lidocaine Viscous) pain #100 mL lidocaine 5 % topical patch 1 patch topical QDAY #30 ea 12/13/24 03/10/25 Rx lidocaine-prilocaine 2.5 %-2.5 % 30 g topical ONCE PRN pain #30 01/01/25 03/10/25 Rx topical cream grams benzonatate 200 mg capsule See Rx Instructions .Route 01/10/25 03/10/25 Rx .COMPLEX #30 caps blood sugar diagnostic (FreeStyle #100 ea 01/10/25 03/02/25 Rx Lite Strips) olanzapine 5 mg tablet 5 mg PO QPM Nausea #60 tabs 01/10/25 03/10/25 Rx 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 sensor (FreeStyle #6 ea 01/17/25 03/02/25 Rx Deep 3 Sensor device) diphenoxylate-atropine 2.5 1 tab PO QID PRN diarrhea #60 tabs 01/18/25 03/10/25 Rx mg-0.025 mg tablet (Lomotil) 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 sensor (FreeStyle #3 ea 01/22/25 03/02/25 Rx Deep 3 Plus Sensor device) hydromorphone 1 mg/mL oral liquid 3 - 4 mg (3 - 4 mL) PO Q4H PRN 01/24/25 03/10/25 Rx pain #473 mL ondansetron 8 mg disintegrating 8 mg PO Q8H PRN nausea and 01/24/25 03/10/25 Rx tablet vomiting #90 tabs 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,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,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 #1 ea 01/26/25 03/02/25 Rx (FreeStyle Deep 3 [place]) levalbuterol HCl 1.25 mg/3 mL 1.25 mg inhalation Q12H 02/07/25 03/10/25 History solution for nebulization famotidine 40 mg/5 mL (8 mg/mL) 40 mg (5 mL) PO QDAY #150 mL 02/08/25 03/10/25 Rx oral suspension guaifenesin 100 mg/5 mL oral liquid 200 mg PO Q4H PRN congestion 02/10/25 History insulin glargine 100 unit/mL (3 5 - 10 unit subcut DAILY 02/10/25 03/10/25 History mL) subcutaneous pen (Lantus Solostar U-100 Insulin) gabapentin 300 mg/6 mL (6 mL) oral 200 - 300 mg PO TID 02/12/25 03/10/25 History solution acetaminophen 500 mg tablet 1,000 mg (2 x 500 mg) PO TID PRN 02/19/25 03/10/25 Rx pain #180 tabs ltmtov-alzxomqa-vumrmxu 1 cap PO BID #60 caps 02/19/25 03/10/25 Rx 12,000-38,000-60,000 unit capsule,delayed rel (Creon) mirtazapine 7.5 mg tablet 15 mg (2 x 7.5 mg) feeding tube HS 02/19/25 03/11/25 Rx #90 tabs metformin 1,000 mg tablet 500 mg (1/2 x 1,000 mg) feeding 02/21/25 03/10/25 Rx tube HS #180 tabs alprazolam 0.5 mg disintegrating 0.5 mg PO BID-TID PRN Anxiety #60 03/02/25 03/10/25 Rx tablet tabs apixaban 2.5 mg tablet 2.5 mg PO BID #60 tabs 03/11/25 03/11/25 Rx Processed by: Pharmacy Medications reviewed in ED?: No Medication History completed: Yes Patient Interview: Completed Secondary Source(s): Other family member and Insurance records [facility] Statement: Pharmacist interview with patient and spouse. [employer] insurance records reviewed. As the person ultimately responsible for medication therapy, providers are able to order a medication from an existing home medication list in [facility] via the "Reconcile Routine" prior to Confirmation of that medication by business support specialist. Such practice is discouraged except when the physician, in their clinical judgment, deems that a medical need exists for a medication without regard to previous use.
[2025-03-11] MEDS: LEVALBUTEROL 1.25 MG/3 ML NEB INH PRN (17:36)
--- NOTE | 2025-03-11 18:09 | PROVIDER PROGRESS NOTE ---
Subjective Prog Note Date Prog Note Date: 03/11/25 Prog Note Time: 14:00 Subjective Pt reports feeling: Improved Subjective: Pt feels better today. Cough and dyspnea improved. Reports mild globus sensation in throat that has worsened in recent 3-4 days, liquids and solids equally. She has been using her NC O2 at home 24/ for past couple days since she started feeling bad. Current Medications Current Medications Current Medications: Current Medications Generic Name Dose Route Start Last Admin Trade Name Freq PRN Reason Stop Dose Admin Acetaminophen 1,000 mg 03/11/25 02:37 03/11/25 04:23 Acetaminophen 500 Mg Tablet PO 1,000 mg TID PRN Administration pain Alprazolam 0.5 mg 03/11/25 02:37 Alprazolam 0.25 Mg Tablet PO TID PRN anxiety Lipase/Protease/Amylase 2 cap 03/11/25 09:00 03/11/25 17:11 Lipase/Protease/Amylase Capsule PO 2 cap BIDWM DONNY Administration Apixaban 2.5 mg 03/11/25 02:37 03/11/25 08:46 Apixaban 2.5 Mg Tablet PO 2.5 mg BID DONNY Administration Benzonatate 100 mg 03/11/25 02:37 03/11/25 16:12 Benzonatate 100 Mg Capsule PO 100 mg Q8H PRN Administration Cough Budesonide 0.5 mg 03/11/25 07:00 03/11/25 08:16 Budesonide 0.5 Mg/2 Ml Neb INH 0.5 mg RTBID DONNY Administration Diphenoxylate HCl/Atropine 1 tab 03/11/25 02:37 03/11/25 06:32 Diphenox/Atropine 2.5/0.025 Mg Tablet PO 1 tab QID PRN Administration diarrhea Famotidine 40 mg 03/11/25 09:00 03/11/25 08:45 Famotidine 20 Mg Tablet PO 40 mg DAILY DONNY Administration Formoterol Fumarate 20 mcg 03/11/25 07:00 03/11/25 08:16 Formoterol Fumarate Neb 20 Mcg/2 Ml INH 20 mcg RTBID DONNY Administration Gabapentin 200 mg 03/11/25 06:00 03/11/25 14:42 Gabapentin 100 Mg Capsule PO 200 mg TID DONNY Administration Guaifenesin 600 mg 03/11/25 02:22 Guaifenesin 600 Mg Tablet PO BID PRN Cough Guaifenesin 200 mg 03/11/25 02:23 03/11/25 04:11 Guaifenesin 100 Mg/5 Ml Udc PO 200 mg Q4H PRN Administration Cough Guaifenesin 200 mg 03/11/25 02:37 Guaifenesin 100 Mg/5 Ml Udc PO Q4H PRN congestion Hydromorphone HCl 3 mg 03/11/25 05:05 03/11/25 16:11 Hydromorphone 2 Mg Tablet PO 3 mg Q4H PRN Administration Severe Pain (Level 7-10) Sodium Chloride 1,000 mls @ 83.333 mls/hr 03/10/25 23:45 03/11/25 01:59 Normal Saline 0.9% IV 83.33 mls/hr .Q12H DONNY Administration Ampicillin Sodium/Sulbactam 100 mls @ 200 mls/hr 03/11/25 10:00 03/11/25 16:00 Sodium 3 gm/ Sodium Chloride IV 200 mls/hr Q6H DONNY Administration Insulin Glargine-yfgn 5 unit 03/11/25 09:00 03/11/25 08:45 Insulin Glargine-Yfgn 300 Unit/3 Ml Pen SUBQ 5 unit DAILY DONNY Administration Insulin Human Lispro 1 - 9 unit 03/11/25 17:00 03/11/25 17:11 Insulin Lispro 300 Unit/3 Ml Pen SUBQ 1 unit 0800,1200,1700,2100 DONNY Administration Protocol Levalbuterol HCl 1.25 mg 03/11/25 02:37 03/11/25 08:15 Levalbuterol 1.25 Mg/3 Ml Neb INH 1.25 mg Q12H DONNY Administration Levalbuterol HCl 1.25 mg 03/11/25 17:21 03/11/25 17:36 Levalbuterol 1.25 Mg/3 Ml Neb INH 1.25 mg Q4H PRN Administration Shortness of Air/Wheezing Lidocaine 1 patch 03/11/25 09:00 03/11/25 08:46 Lidocaine Patch 4% TOP 1 patch DAILY DONNY Administration Lidocaine HCl 5 ml 03/11/25 02:37 03/11/25 04:17 Lidocaine Viscous 2% 15 Ml Udc MM 5 ml TID PRN Administration pain Mirtazapine 15 mg 03/11/25 21:00 Mirtazapine 15 Mg Tablet FT HS [facility] Multi-Ingredient Ointment 1 applic 03/11/25 02:00 03/11/25 08:52 Zinc Oxide 20% Oint 60 Gm Tube TP 1 applic BID PRN Administration red coccyx- skin barrier Naloxone HCl 1 kit 03/11/25 02:37 Naloxone Hcl Nasal [place] Kit JENI Q2M PRN opioid overdose Ondansetron HCl 4 mg 03/10/25 22:52 Ondansetron 4 Mg/2 Ml Vial IVP Q6HR PRN Nausea / Vomiting Ondansetron HCl 8 mg 03/11/25 02:37 Ondansetron Odt 4 Mg Tablet PO Q8H PRN nausea and vomiting Prochlorperazine Edisylate 10 mg 03/10/25 22:52 Prochlorperazine 10 Mg/2 Ml Vial IVP Q6HR PRN Nausea / Vomiting Sodium Chloride 10 ml 03/10/25 22:52 Sodium Chloride Flush 0.9% 10 Ml Syringe IVP PRN PRN NEEDED PER PROVIDER ORDERS Sodium Chloride 10 ml 03/11/25 01:00 03/11/25 17:39 Sodium Chloride Flush 0.9% 10 Ml Syringe IVP Not Given 0100,0900,1700 [facility] Objective Vital Signs/Intake & Output Reviewed Vital Signs: Yes Vital Signs: Vital Signs x48h Temp Pulse Pulse Resp BP Pulse Ox 03/11/25 17:38 90 16 03/11/25 17:33 36.5 C 75 16 106/69 97 Intake & Output: Intake & Output 03/08/25 03/09/25 03/10/25 03/11/25 23:59 23:59 23:59 23:59 Intake Total 1250 / 1250 1660 / 1660 Balance 1250 / 1250 1660 / 1660 Weight (kg) 44.452 kg Objective Comments/Other: middle aged woman lying in bed, NAD, sclera anicteric, MMM, OP clear Lungs: crackles lower half of lung kwon bilat, no wheeze, nonlabored RRR, S1S2, no edema abd soft, NT, ND, BS+, PEG LUQ site c/d AAOX3 mild clubbing Lab Results 03/11/25 06:34 03/11/25 06:34 Other Labs: Lab Results x24hrs 03/11/25 03/11/25 03/11/25 Range/Units 16:34 11:43 07:30 WBC (4.8-10.8) x10^3/uL RBC (4.20-5.40) 10^6/uL Hgb (12.0-16.0) g/dL Hct (37.0-47.0) % MCV (81.0-99.0) fL MCH (27.0-31.0) pg MCHC (32.0-36.0) g/dL RDW (12.0-15.0) % Plt Count (130-450) 10^3/uL MPV (7.9-10.8) fL Neut # (Auto) Lymph # (Auto) Avery # (Auto) Eos # (Auto) Baso # (Auto) Absolute Nucleated RBC Total Counted Band Neuts % (Manual) (0 - 10) % Abnorm Lymph % (Manual) % Nucleated RBC % Neutrophils # (Manual) (1.5-6.6) 10^3/uL Lymphocytes # (Manual) (1.5-3.5) 10^3/uL Monocytes # (Manual) (0.0-1.0) 10^3/uL Eosinophils # (Manual) (0-0.7) 10^3/uL Basophils # (Manual) (0-0.1) 10^3/uL Differential Comment WBC Morphology (NORMAL) Platelet Estimate (NORMAL) Platelet Morphology (NORMAL) RBC Morph Micro Appear (NORMAL) Sodium (135-145) mmol/L Potassium (3.5-4.5) mmol/L Chloride (101-111) mmol/L Carbon Dioxide (21-32) mmol/L Anion Gap (6-13) BUN (6-20) mg/dL Creatinine (0.6-1.3) mg/dL Estimated GFR (MDRD) (>89) Glucose (74-104) mg/dL POC Whole Bld Glucose 157 391 293 (70-100) mg/dL Estimat Average Glucose (70-100) mg/dL Hemoglobin A1c % (4.27-6.07) % Calcium (8.5-10.3) mg/dL Total Bilirubin (0.2-1.0) mg/dL AST (10-42) IU/L ALT (10-60) IU/L Alkaline Phosphatase (42-121) IU/L Total Protein (6.4-8.9) g/dL Albumin (3.2-5.5) g/dL Globulin (2.1-4.2) g/dL Albumin/Globulin Ratio (1.0-2.2) Lipase (11-82) U/L Nasal Adenovirus (PCR) Nasal B. parapertussis DNA (PCR) Nasal Coronavir 229E PCR Nasal Coronavir HKU1 PCR Nasal Coronavir NL63 PCR Nasal Coronavir OC43 PCR Nasal Enterovir/Rhinovir PCR Nasal Influenza B PCR Nasal Influenza A PCR Nasal Parainfluen 1 PCR Nasal Parainfluen 2 PCR Nasal Parainfluen 3 PCR Nasal Parainfluen 4 PCR Nasal RSV (PCR) Nasal B.pertussis DNA PCR Nasal C.pneumoniae (PCR) Jeni Human Metapneumo PCR Nasal M.pneumoniae (PCR) Nasal SARS-CoV-2 (PCR) 03/11/25 03/10/25 Range/Units 06:34 18:35 WBC 4.2 L 5.5 (4.8-10.8) x10^3/uL RBC 2.48 L 2.33 L (4.20-5.40) 10^6/uL Hgb 7.5 L 7.1 L (12.0-16.0) g/dL Hct 22.8 L 21.0 L (37.0-47.0) % MCV 91.9 90.1 (81.0-99.0) fL MCH 30.2 30.5 (27.0-31.0) pg MCHC 32.9 33.8 (32.0-36.0) g/dL RDW 15.5 H 15.6 H (12.0-15.0) % Plt Count 156 148 (130-450) 10^3/uL MPV 9.3 9.4 (7.9-10.8) fL Neut # (Auto) Not Reportable Not Reportable Lymph # (Auto) Not Reportable Not Reportable Avery # (Auto) Not Reportable Not Reportable Eos # (Auto) Not Reportable Not Reportable Baso # (Auto) Not Reportable Not Reportable Absolute Nucleated RBC Not Reportable Not Reportable Total Counted 100 100 Band Neuts % (Manual) 0 6 (0 - 10) % Abnorm Lymph % (Manual) 0 0 % Nucleated RBC % Not Reportable Not Reportable Neutrophils # (Manual) 3.7 5.1 (1.5-6.6) 10^3/uL Lymphocytes # (Manual) 0.3 L 0.2 L (1.5-3.5) 10^3/uL Monocytes # (Manual) 0.2 0.1 (0.0-1.0) 10^3/uL Eosinophils # (Manual) 0.0 0.1 (0-0.7) 10^3/uL Basophils # (Manual) 0.0 0.0 (0-0.1) 10^3/uL Differential Comment MANUAL DIFFERENTIAL MANUAL DIFFERENTIAL WBC Morphology 2+ TOXIC GRANULATION (NORMAL) Platelet Estimate NORMAL (130-450,000) NORMAL (130-450,000) (NORMAL) Platelet Morphology NORMAL APPEARANCE NORMAL APPEARANCE (NORMAL) RBC Morph Micro Appear NORMAL APPEARANCE NORMAL APPEARANCE (NORMAL) Sodium 133 L 133 L (135-145) mmol/L Potassium 4.4 2.8 L (3.5-4.5) mmol/L Chloride 99 L 96 L (101-111) mmol/L Carbon Dioxide 27 29 (21-32) mmol/L Anion Gap 7.0 8.0 (6-13) BUN 12 12 (6-20) mg/dL Creatinine 0.7 0.5 L (0.6-1.3) mg/dL Estimated GFR (MDRD) 86 L 127 (>89) Glucose 325 H 173 H (74-104) mg/dL POC Whole Bld Glucose (70-100) mg/dL Estimat Average Glucose 154 H (70-100) mg/dL Hemoglobin A1c % 7.0 H (4.27-6.07) % Calcium 8.3 L 8.3 L (8.5-10.3) mg/dL Total Bilirubin 0.3 (0.2-1.0) mg/dL AST 15 (10-42) IU/L ALT 10 (10-60) IU/L Alkaline Phosphatase 90 (42-121) IU/L Total Protein 6.1 L (6.4-8.9) g/dL Albumin 3.0 L (3.2-5.5) g/dL Globulin 3.1 (2.1-4.2) g/dL Albumin/Globulin Ratio 1.0 (1.0-2.2) Lipase < 10 L (11-82) U/L Nasal Adenovirus (PCR) NOT DETECTED Nasal B. parapertussis DNA (PCR) NOT DETECTED Nasal Coronavir 229E PCR NOT DETECTED Nasal Coronavir HKU1 PCR NOT DETECTED Nasal Coronavir NL63 PCR NOT DETECTED Nasal Coronavir OC43 PCR NOT DETECTED Nasal Enterovir/Rhinovir PCR NOT DETECTED Nasal Influenza B PCR NOT DETECTED Nasal Influenza A PCR NOT DETECTED Nasal Parainfluen 1 PCR NOT DETECTED Nasal Parainfluen 2 PCR NOT DETECTED Nasal Parainfluen 3 PCR NOT DETECTED Nasal Parainfluen 4 PCR NOT DETECTED Nasal RSV (PCR) NOT DETECTED Nasal B.pertussis DNA PCR NOT DETECTED Nasal C.pneumoniae (PCR) NOT DETECTED Jeni Human Metapneumo PCR NOT DETECTED Nasal M.pneumoniae (PCR) NOT DETECTED Nasal SARS-CoV-2 (PCR) NOT DETECTED Assessment/Plan Problem List (1) Aspiration pneumonia: Impression: 59 yo F with PMH of 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 presented to the ER with c/o 3 day h/o cough with yellow sputum, SOB, weakness, fatigue. Found to have dependent consolidations on CT, afebrile, no leukocytosis. 1. multifocal bacterial pneumonia: consider recurrent aspiration given her history. She eats some by mouth and uses PEG tube feeds. She is on checkpoint inhibitor so consider immune reaction, but unlikely given mild presentation. resp viral panel neg. Comfortable on RA now. - f/u sputum cx - cont unasyn - discuss safety of continued po intake- may repeat [employer] eval here 2. COPD, chronic hypoxic respiratory failure: home O2 at night. No signs of significant exacerbation now so will hold off on steroids. - cont NC O2 prn to keep sat > 88% - cont home inhalers, duonebs prn 3. tracheal squamous cell ca: s/p tracheal stent, recent stent exchange 02/01/25. Currently on chemotherapy. Her last treatment was on 03/05/25 with Carboplatin + Abraxane + Pembrolizumab. 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 Aguila Murrell at [facility]- out of office today. Try calling tomorrow. - oncologist: Dr. Gutierrez at [facility]- notify of pt's admission-left message - dialudid prn 4. dysphagia/feeding dysfunction, sever protein/calorie malnutrition: - apprecaite nutrition input - pt wishes to do po feeds for now, resume PEG feeds on discharge 5. DM2: home regimen is lantus 5 units q am, SSI, metformin. - resume home lantus 5 q am - SSI - hold metformin - f/u A1c 6. Chronic PE: - cont apixaban- clarify insurance problems related to this med on discharge 7. hyponatremia: may be SIADH from lung infection vs volume depletion. Euvolemic. Corrected for glu Na is ~ 136. - monitor 8. normocytic anemia: recent b/l hgb 8-9. LIkely due to chemo, malignancy. - monitor dvt ppx: DOAC Dispo plan and GOC: Came from home with . Likely d/c tomorrow if she continues to do well. Qualifiers: Aspiration pneumonia type: unspecified Laterality: unspecified laterality Lung location: unspecified part of lung Qualified Code(s): J69.0 - Pneumonitis due to inhalation of food and vomit
[2025-03-11] MEDS ORDERED: PROCHLORPERAZINE 5 MG TABLET PO PRN (18:19)
[2025-03-11] MEDS ORDERED: OLANZapine ODT 5 MG TABLET TL SCH (21:00)
[2025-03-11] MEDS: MIRTAZAPINE 15 MG TABLET FT SCH (21:25)
[2025-03-12] MEDS: guaiFENesin 100 MG/5 ML UDC PO PRN (00:29)
[2025-03-12 05:51] LABS: BASOPHILS # (AUTO) 0.1 10^3/uL (0.0-0.1); BASOPHILS % (AUTO) 1.3 %; EOSINOPHILS % (AUTO) 0.4 %; LYMPHOCYTES # (AUTO) 0.3 10^3/uL (1.5-3.5); LYMPHOCYTES % (AUTO) 6.5 %; MEAN CORPUSCULAR HEMOGLOBIN 30.1 pg (27.0-31.0); MEAN CORPUSCULAR HGB CONC 32.6 g/dL (32.0-36.0); MEAN CORPUSCULAR VOLUME 92.2 fL (81.0-99.0); MEAN PLATELET VOLUME 9.3 fL (7.9-10.8); MONOCYTES # (AUTO) 0.6 10^3/uL (0.0-1.0); MONOCYTES % (AUTO) 12.9 %; NEUTROPHILS # (AUTO) 3.6 10^3/uL (1.5-6.6); NEUTROPHILS % (AUTO) 77.6 %; PLT - PLATELET COUNT 133 10^3/uL (130-450); RED BLOOD COUNT 2.06 10^6/uL (4.20-5.40); RED CELL DISTRIBUTION WIDTH 15.6 % (12.0-15.0); WHITE BLOOD COUNT 4.6 x10^3/uL (4.8-10.8)
[2025-03-12 06:03] LABS: CALCIUM 7.9 mg/dL (8.5-10.3); CREATININE 0.5 mg/dL (0.6-1.3); MAGNESIUM 1.5 mg/dL (1.7-2.3); PHOSPHORUS 2.8 mg/dL (2.5-5.0); POTASSIUM 3.4 mmol/L (3.5-4.5)
[2025-03-12 06:05] LABS: HGB - HEMOGLOBIN 6.2 g/dL (12.0-16.0)
[2025-03-12] MEDS: LEVALBUTEROL 1.25 MG/3 ML NEB INH SCH (07:13)
[2025-03-12] MEDS: diphenhydrAMINE 25 MG CAPSULE PO ONE (09:01)
[2025-03-12] MEDS: ACETAMINOPHEN 325 MG TABLET PO ONE (09:01)
--- NOTE | 2025-03-12 09:26 | PROVIDER PROGRESS NOTE ---
Subjective Subjective Subjective: Today, patient states that she still feels very fatigued. She has a cough, with some mild sputum production. Her shortness of breath has improved. She has had no fevers or chills. She states her pain is pretty uncontrolled at this time. She describes it as a 7/10 in her legs, and then a 4 out of 10 everywhere else. She takes oral Dilaudid at home, and usually takes 5 mg every 4 hours as needed. Current Medications Current Medications Current Medications: Current Medications Generic Name Dose Route Start Last Admin Trade Name Freq PRN Reason Stop Dose Admin Acetaminophen 1,000 mg 03/11/25 02:37 03/11/25 04:23 Acetaminophen 500 Mg Tablet PO 1,000 mg TID PRN Administration pain Alprazolam 0.5 mg 03/11/25 02:37 Alprazolam 0.25 Mg Tablet PO TID PRN anxiety Lipase/Protease/Amylase 2 cap 03/11/25 09:00 03/12/25 08:24 Lipase/Protease/Amylase Capsule PO 2 cap BIDWM DONNY Administration Apixaban 2.5 mg 03/11/25 02:37 03/12/25 08:24 Apixaban 2.5 Mg Tablet PO 2.5 mg BID DONNY Administration Benzonatate 100 mg 03/11/25 02:37 03/12/25 09:01 Benzonatate 100 Mg Capsule PO 100 mg Q8H PRN Administration Cough Budesonide 0.5 mg 03/11/25 07:00 03/12/25 07:16 Budesonide 0.5 Mg/2 Ml Neb INH 0.5 mg RTBID DONNY Administration Diphenoxylate HCl/Atropine 1 tab 03/11/25 02:37 03/12/25 09:01 Diphenox/Atropine 2.5/0.025 Mg Tablet PO 1 tab QID PRN Administration diarrhea Famotidine 40 mg 03/11/25 09:00 03/12/25 08:24 Famotidine 20 Mg Tablet PO 40 mg DAILY DONNY Administration Formoterol Fumarate 20 mcg 03/11/25 07:00 03/12/25 07:15 Formoterol Fumarate Neb 20 Mcg/2 Ml INH 20 mcg RTBID DONNY Administration Gabapentin 200 mg 03/11/25 06:00 03/12/25 05:52 Gabapentin 100 Mg Capsule PO 200 mg TID DONNY Administration Guaifenesin 600 mg 03/11/25 02:22 Guaifenesin 600 Mg Tablet PO BID PRN Cough Guaifenesin 200 mg 03/11/25 02:23 03/11/25 21:25 Guaifenesin 100 Mg/5 Ml Udc PO 200 mg Q4H PRN Administration Cough Guaifenesin 200 mg 03/11/25 02:37 03/12/25 00:29 Guaifenesin 100 Mg/5 Ml Udc PO 200 mg Q4H PRN Administration congestion Hydromorphone HCl 3 mg 03/11/25 05:05 03/12/25 08:28 Hydromorphone 2 Mg Tablet PO 3 mg Q4H PRN Administration Severe Pain (Level 7-10) Ampicillin Sodium/Sulbactam 100 mls @ 200 mls/hr 03/11/25 10:00 03/12/25 05:12 Sodium 3 gm/ Sodium Chloride IV Infused Q6H DONNY Infusion Insulin Glargine-yfgn 5 unit 03/11/25 09:00 03/12/25 08:23 Insulin Glargine-Yfgn 300 Unit/3 Ml Pen SUBQ 5 unit DAILY DONNY Administration Insulin Human Lispro 1 - 9 unit 03/11/25 17:00 03/12/25 08:22 Insulin Lispro 300 Unit/3 Ml Pen SUBQ 1 unit 0800,1200,1700,2100 DONNY Administration Protocol Levalbuterol HCl 1.25 mg 03/11/25 17:21 03/11/25 17:36 Levalbuterol 1.25 Mg/3 Ml Neb INH 1.25 mg Q4H PRN Administration Shortness of Air/Wheezing Levalbuterol HCl 1.25 mg 03/11/25 21:00 03/12/25 07:15 Levalbuterol 1.25 Mg/3 Ml Neb INH 1.25 mg Q12H DONNY Administration Lidocaine 1 patch 03/11/25 09:00 03/12/25 08:24 Lidocaine Patch 4% TOP 1 patch DAILY DONNY Administration Lidocaine HCl 5 ml 03/11/25 02:37 03/11/25 04:17 Lidocaine Viscous 2% 15 Ml Udc MM 5 ml TID PRN Administration pain Loperamide HCl 2 mg 03/11/25 18:19 Loperamide 2 Mg Capsule PO Q4H PRN diarrhea Mirtazapine 15 mg 03/11/25 21:00 03/11/25 21:25 Mirtazapine 15 Mg Tablet FT 15 mg HS DONNY Administration Multi-Ingredient Ointment 1 applic 03/11/25 02:00 03/11/25 08:52 Zinc Oxide 20% Oint 60 Gm Tube TP 1 applic BID PRN Administration red coccyx- skin barrier Naloxone HCl 1 kit 03/11/25 02:37 Naloxone Hcl Nasal [place] Kit JENI Q2M PRN opioid overdose Ondansetron HCl 4 mg 03/10/25 22:52 Ondansetron 4 Mg/2 Ml Vial IVP Q6HR PRN Nausea / Vomiting Ondansetron HCl 8 mg 03/11/25 02:37 Ondansetron Odt 4 Mg Tablet PO Q8H PRN nausea and vomiting Prochlorperazine Edisylate 10 mg 03/10/25 22:52 Prochlorperazine 10 Mg/2 Ml Vial IVP Q6HR PRN Nausea / Vomiting Prochlorperazine Maleate 10 mg 03/11/25 18:19 Prochlorperazine 5 Mg Tablet PO TID PRN nausea and vomiting Sodium Chloride 10 ml 03/10/25 22:52 Sodium Chloride Flush 0.9% 10 Ml Syringe IVP PRN PRN NEEDED PER PROVIDER ORDERS Sodium Chloride 10 ml 03/11/25 01:00 03/12/25 08:25 Sodium Chloride Flush 0.9% 10 Ml Syringe IVP 10 ml 0100,0900,1700 DONNY Administration Objective Vital Signs/Intake & Output Reviewed Vital Signs: Yes Vital Signs: Vital Signs x48h Temp Pulse Pulse Resp BP Pulse Ox 03/12/25 09:23 98.4 F 126 H 16 130/75 95 03/12/25 07:30 98.6 F 94 22 100/63 94 03/12/25 07:17 95 22 Intake & Output: Intake & Output 03/09/25 03/10/25 03/11/25 03/12/25 23:59 23:59 23:59 23:59 Intake Total 1250 / 1250 3550 / 3550 1045 / 1045 Balance 1250 / 1250 3550 / 3550 1045 / 1045 Weight (kg) 44.452 kg 43.5 kg Objective General Appearance: positive No acute distress and Alert; negative Anxious or Lethargic Eyes Bilateral: positive Normal inspection, PERRL and EOMI ENT: positive ENT inspection nml, Pharynx nml and No signs of dehydration Neck: positive Nml inspection, Thyroid nml and No JVD Respiratory: positive Chest non-tender, No respiratory distress, Breath sounds nml and Rales (mild, bibasilar crackles noted ); negative Wheezes Cardiovascular: positive Regular rate & rhythm, No murmur and Tachycardia; negative Systolic murmur Abdomen: positive Non-tender, No distention and Other (PEG tube in LUQ - no drainage or erythema noted) Back: positive Nml inspection; negative CVA tenderness (R) or CVA tenderness (L) Skin: positive Color nml, Dry and Pallor Extremities: positive Non-tender, Full ROM and Nml appearance Neurologic/Psychiatric: positive Oriented x3 and Mood/affect nml Lab Results 03/12/25 05:36 03/12/25 05:36 Other Labs: Lab Results x24hrs 03/12/25 03/12/25 03/12/25 Range/Units 07:27 07:05 05:36 WBC 4.6 L (4.8-10.8) x10^3/uL RBC 2.06 L (4.20-5.40) 10^6/uL Hgb 6.2 L* (12.0-16.0) g/dL Hct 19.0 L* (37.0-47.0) % MCV 92.2 (81.0-99.0) fL MCH 30.1 (27.0-31.0) pg MCHC 32.6 (32.0-36.0) g/dL RDW 15.6 H (12.0-15.0) % Plt Count 133 (130-450) 10^3/uL MPV 9.3 (7.9-10.8) fL Neut # (Auto) 3.6 (1.5-6.6) 10^3/uL Lymph # (Auto) 0.3 L (1.5-3.5) 10^3/uL [place] # (Auto) 0.6 (0.0-1.0) 10^3/uL Eos # (Auto) 0.0 (0.0-0.7) 10^3/uL Baso # (Auto) 0.1 (0.0-0.1) 10^3/uL Absolute Nucleated RBC 0.00 x10^3/uL Nucleated RBC % 0.0 /100WBC Sodium 138 (135-145) mmol/L Potassium 3.4 L (3.5-4.5) mmol/L Chloride 103 (101-111) mmol/L Carbon Dioxide 28 (21-32) mmol/L Anion Gap 7.0 (6-13) BUN 6 (6-20) mg/dL Creatinine 0.5 L (0.6-1.3) mg/dL Estimated GFR (MDRD) 127 (>89) Glucose 189 H (74-104) mg/dL POC Whole Bld Glucose 168 (70-100) mg/dL Estimat Average Glucose (70-100) mg/dL Hemoglobin A1c % (4.27-6.07) % Calcium 7.9 L (8.5-10.3) mg/dL Phosphorus 2.8 (2.5-5.0) mg/dL Magnesium 1.5 L (1.7-2.3) mg/dL Blood Type O POSITIVE Antibody Screen NEGATIVE Crossmatch IS Only See Detail 03/11/25 03/11/25 03/11/25 Range/Units 20:29 16:34 11:43 WBC (4.8-10.8) x10^3/uL RBC (4.20-5.40) 10^6/uL Hgb (12.0-16.0) g/dL Hct (37.0-47.0) % MCV (81.0-99.0) fL MCH (27.0-31.0) pg MCHC (32.0-36.0) g/dL RDW (12.0-15.0) % Plt Count (130-450) 10^3/uL MPV (7.9-10.8) fL Neut # (Auto) (1.5-6.6) 10^3/uL Lymph # (Auto) (1.5-3.5) 10^3/uL [place] # (Auto) (0.0-1.0) 10^3/uL Eos # (Auto) (0.0-0.7) 10^3/uL Baso # (Auto) (0.0-0.1) 10^3/uL Absolute Nucleated RBC x10^3/uL Nucleated RBC % /100WBC Sodium (135-145) mmol/L Potassium (3.5-4.5) mmol/L Chloride (101-111) mmol/L Carbon Dioxide (21-32) mmol/L Anion Gap (6-13) BUN (6-20) mg/dL Creatinine (0.6-1.3) mg/dL Estimated GFR (MDRD) (>89) Glucose (74-104) mg/dL POC Whole Bld Glucose 248 157 391 (70-100) mg/dL Estimat Average Glucose (70-100) mg/dL Hemoglobin A1c % (4.27-6.07) % Calcium (8.5-10.3) mg/dL Phosphorus (2.5-5.0) mg/dL Magnesium (1.7-2.3) mg/dL Blood Type Antibody Screen Crossmatch IS Only 03/11/25 Range/Units 06:34 WBC (4.8-10.8) x10^3/uL RBC (4.20-5.40) 10^6/uL Hgb (12.0-16.0) g/dL Hct (37.0-47.0) % MCV (81.0-99.0) fL MCH (27.0-31.0) pg MCHC (32.0-36.0) g/dL RDW (12.0-15.0) % Plt Count (130-450) 10^3/uL MPV (7.9-10.8) fL Neut # (Auto) (1.5-6.6) 10^3/uL Lymph # (Auto) (1.5-3.5) 10^3/uL [place] # (Auto) (0.0-1.0) 10^3/uL Eos # (Auto) (0.0-0.7) 10^3/uL Baso # (Auto) (0.0-0.1) 10^3/uL Absolute Nucleated RBC x10^3/uL Nucleated RBC % /100WBC Sodium (135-145) mmol/L Potassium (3.5-4.5) mmol/L Chloride (101-111) mmol/L Carbon Dioxide (21-32) mmol/L Anion Gap (6-13) BUN (6-20) mg/dL Creatinine (0.6-1.3) mg/dL Estimated GFR (MDRD) (>89) Glucose (74-104) mg/dL POC Whole Bld Glucose (70-100) mg/dL Estimat Average Glucose 154 H (70-100) mg/dL Hemoglobin A1c % 7.0 H (4.27-6.07) % Calcium (8.5-10.3) mg/dL Phosphorus (2.5-5.0) mg/dL Magnesium (1.7-2.3) mg/dL Blood Type Antibody Screen Crossmatch IS Only Diagnostic Imaging Diagnostic Imaging Results: positive Final report reviewed Assessment/Plan Problem List (1) Multifocal pneumonia: Impression: Patient presented with persistent cough, fevers, chills, malaise. CTA done 03/10 shows dependent consolidations. Patient has tracheal stent in place, and has some problems with dysphagia, and as such, there were concerns for aspiration. Continue minced and moist diet. Continue Unasyn. (2) Anemia: Impression: Patient has required transfusion in the pastlast done 02/14 for hemoglobin of 6.7. After this, her hemoglobin improved to around 8-9, and has been slowly downtrending. She has no active bleeding noted, no dark stools, no large bruises or any retroperitoneal tenderness. Will transfuse 1 unit PRBCs. Patient is receiving carboplatin, Abraxane, pembrolizumab, and her last session of chemoradiation was 01/10/2025. This anemia is likely a side effect of this. Will touch base with oncology. Qualifiers: Anemia type: unspecified type Qualified Code(s): D64.9 - Anemia, unspecified (3) Diabetes mellitus type 2, insulin dependent: Impression: Continue 5 units insulin at night, as well as sliding scale insulin. (4) Right pulmonary embolus: Impression: Continue home Eliquis dosing of 2.5 mg twice daily. (5) Chronic pancreatitis: Impression: Continue pancreatic enzyme supplementation with pancrelipase. Qualifiers: Pancreatitis type: unspecified pancreatitis type Qualified Code(s): K 86.1 - Other chronic pancreatitis (6) Cancer associated pain: Impression: Continue home regimen of Dilaudid as needed, 5 mg every 4 hours. Patient follows with palliative care in the outpatient setting for this. (7) Acute hypokalemia: Impression: Likely due to decreased food intake, continue supplementation. (8) Hypomagnesemia: Impression: Likely due to decreased food intake, continue supplementation. (9) Severe protein-calorie malnutrition: Impression: Patient with weight loss over the past year. Nutrition is following, continue tube feeds, minced and moist food. 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 She was transferred to [facility], bronchoscopy was done, as well as tracheal stenting. 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 She was started on chemoradiation, and her last session was 01/15. She follows with Dr. Gutierrez.
[2025-03-12] MEDS: POTASSIUM CHLORIDE 20 MEQ/15 ML UDC PO ONE (11:56)
[2025-03-12] MEDS: MAGNESIUM OXIDE 400 MG TABLET PO SCH (11:56)
[2025-03-12] MEDS: AMPICILLIN/SULBACTAM 3 GM in SODIUM CHLORIDE 0.9% MINIBAG 100 ML IV SCH (12:33)
[2025-03-12] MEDS: ONDANSETRON 4 MG/2 ML VIAL IVP PRN (12:33)
[2025-03-12] MEDS: HYDROmorphone 2 MG TABLET PO PRN ×2 (13:09→21:26)
[2025-03-12] MEDS: LACTATED RINGERS 1,000 ML IV SCH (14:26)
[2025-03-12] MEDS: LOPERAMIDE 2 MG CAPSULE PO PRN ×2 (16:20→18:16)
[2025-03-12] MEDS: GABAPENTIN 300 MG CAPSULE PO SCH (21:22)
[2025-03-13 05:28] LABS: BASOPHILS # (AUTO) 0.1 10^3/uL (0.0-0.1); BASOPHILS % (AUTO) 1.4 %; EOSINOPHILS % (AUTO) 0.7 %; HCT - HEMATOCRIT 23.9 % (37.0-47.0); LYMPHOCYTES # (AUTO) 0.3 10^3/uL (1.5-3.5); MEAN CORPUSCULAR HEMOGLOBIN 29.7 pg (27.0-31.0); MEAN CORPUSCULAR HGB CONC 33.5 g/dL (32.0-36.0); MEAN CORPUSCULAR VOLUME 88.8 fL (81.0-99.0); MEAN PLATELET VOLUME 9.1 fL (7.9-10.8); MONOCYTES # (AUTO) 0.8 10^3/uL (0.0-1.0); MONOCYTES % (AUTO) 18.4 %; NEUTROPHILS # (AUTO) 2.9 10^3/uL (1.5-6.6); NEUTROPHILS % (AUTO) 70.8 %; PLT - PLATELET COUNT 119 10^3/uL (130-450); RED BLOOD COUNT 2.69 10^6/uL (4.20-5.40); RED CELL DISTRIBUTION WIDTH 16.1 % (12.0-15.0); WHITE BLOOD COUNT 4.1 x10^3/uL (4.8-10.8)
[2025-03-13 05:49] LABS: CREATININE 0.5 mg/dL (0.6-1.3); POTASSIUM 3.6 mmol/L (3.5-4.5)
[2025-03-13 08:36] VITALS: TEMP 98.1; O2SAT 93
--- NOTE | 2025-03-13 10:09 | Discharge Summary ---
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 CTA done shows dependent consolidations. Concerns for aspiration. Received Unasyn, and will transition to Augmentin on discharge. Patient was on room air, but has 2 L at home for sleeping as well as with activity. Anemia Patient has required transfusion in the pastlast done 02/14 for hemoglobin of 6.7. After this, her hemoglobin improved to around 8-9, and has been slowly downtrending. She has no active bleeding noted, no dark stools, no large bruises or any retroperitoneal tenderness. Patient is receiving carboplatin, Abraxane, pembrolizumab, and her last session of chemoradiation was 01/10/2025. This anemia is likely a side effect of this. Transfused 1 unit, she has a follow-up appoint with oncology in 1 week, where they will recheck her labs. Vies to follow closely. Diabetes mellitus type 2continue long-acting insulin 5 units at night, as well as sliding scale. Right pulmonary emboluscontinue home dosing of Eliquis 2.5 mg twice daily. Chronic pancreatitiscontinue pancreatic enzyme supplementation of pancolitis. Chronic cancer associated paincontinue home Dilaudid. Acute hypokalemiaresolved. Hypomagnesemiaresolved. Severe protein calorie malnutritioncontinue tube feeds, as well as minced and moist food. Tracheal carcinomacontinue outpatient follow-up with Dr. Gutierrez. HPI History of Present Illness: Per Dr. Janeen Blount: H&P was conducted via video remotely, using [employer] Cart. [place] is in [place]. Physician is in [place]. RN is at bedside. 59 yo F with PMH of tracheal poorly differentiated squamous cell carcinoma dx'd in 07/2024 s/p resection and tracheal stent s/p Radiotx and now on Chemotherapy, PE d/t tracheal mass--off Eliquis x 1 week d/t insurance issues, COPD, DM type 2, HLD, h/o tobacco use, h/o ETOH use disorder now in remission with recent hospitalization for Aspiration PNA presented to the ER with c/o 3 day h/o cough with yellow sputum, SOB, weakness, fatigue. No F/C. No abdo pain. +Nausea. No CP. No hemoptysis. No urinary symptoms.Oximetry at home 95%. Pt has been using her usual Xopenex nebulizer and budesonide inhalers. Pt on Home oxygen at night at baseline. Pt was hospitalized at [facility] from 01/31/25-02/06/25 for Aspiration PNA with hypoxia. She was treated with Cefazolin/LVQ, then D/C'd on Linezolide/LVQ. BC 11/22 + for MSSA.. Pt had tracheal stent revision by [employer]. Pt was seen by Speech Therapist who recommended level 5 minced and moist diet. Pt felt that she was close to her baseline soon after she returned home and did not have worsening symptoms again until 3 days ago. Prior to her current symptoms, no unusual activity. Pt mostly uses her PEG tube for feeds, as she has poor interest in food, but she does eat soft foods occasionally. No choking or aspiration. She did have Chemotherapy last Tuesday. Pt received radiation therapy in 10/2024 and is currently on Chemotherapy. Her last treatment was on 03/05/25 with Carboplatin + Abraxane + Pembrolizumab. In the ER, Na 133, K 2.8, Glc 173, Hgb 7.1, Viral Resp neg CXR: Patchy dependent opacities. Differential includes drug reaction, aspiration or infection. CTA Chest: No pulmonary embolus. Dependent consolidation. Differential includes drug reaction, aspiration, multifocal pneumonia Diffuse tracheal thickening, with tracheal stent present. Pt was given Rocephin/Azithromycin/Flagyl, Decadron, K, nebs, MagSO4 2 gm in the ER. Aspiration PNA Recent PNA and MSSA bacteremia Tracheal squamous cell carcinoma (4) Tracheal stenosis: Plan: Status post tracheal stenting on 08/13/2024. She underwent bronchoscopy with cryo ablation on 01/16/2025. She underwent stent exchange on 02/01/2025. Follow-up with Hortencia Esparza pulmonology. CONSULTS | PROCEDURES Consultations: None Procedures: Chest/thorax CTA, chest x-ray HOSPITAL COURSE Hospital Course: Patient is a 59-year-old female with history of poorly differentiated squamous cell carcinoma status post resection and tracheal stent now on chemotherapy who presented initially for fatigue, fevers, chills, cough. Chest CT showed dependent consolidations. She was started on Unasyn for possible aspiration pneumonia. During her stay, she also developed an anemia, which she has had in the past, as early as last month after her chemotherapy cycles. She was not actively bleeding, and was given a unit of red blood cells with appropriate response. She no longer required oxygen, and passed an oxygen desaturation study. She does have 2 L of oxygen at home as needed for shortness of breath when she is sleeping and with a lot of activity. She is advised to continue to use this. She also has an appointment set up with Dr. Gutierrez within the next week, which is appropriate as she will need to recheck her hemoglobin and make sure it is at a good level. Overall, patient felt much better. She was deemed stable for discharge home with close follow-up with her primary care doctor as well as her oncologist. ALLERGIES Allergies Allergy/AdvReac Type Severity Reaction Status Date / Time oxycodone Allergy Severe Rash Verified 03/10/25 17:52 Sulfa (Sulfonamide Allergy Rash Verified 03/10/25 17:52 Antibiotics) paclitaxel AdvReac Severe Respiratory Verified 03/10/25 17:52 codeine AdvReac Emesis Verified 03/10/25 17:52 MEDICATIONS Ambulatory Orders Medication Instructions Recorded Confirmed sodium chloride 3 % for 4 ml inhalation BID 09/05/24 03/10/25 nebulization prochlorperazine maleate 10 mg 10 mg PO TID PRN nausea and 10/25/24 03/11/25 tablet (Compazine) vomiting #90 tabs naloxone 4 mg/actuation nasal 4 mg intranasal Q2M PRN opioid 10/30/24 03/10/25 spray (Narcan) overdose #2 ea budesonide-formoterol HFA 80 2 puff inhalation BID #10.2 grams 11/07/24 03/10/25 mcg-4.5 mcg/actuation aerosol inhaler (Symbicort) loperamide 2 mg tablet (Imodium 2 mg PO Q4H PRN diarrhea 11/21/24 03/10/25 A-D) lancets 30 gauge (CareTouch Twist #100 ea 11/23/24 03/02/25 Lancet) pen needle, diabetic 31 gauge x #100 ea 11/23/24 03/02/25 3/16" (Comfort EZ Pen [place]) insulin lispro 100 unit/mL 1 - 4 unit (0.01 - 0.04 mL) subcut 12/03/24 03/10/25 subcutaneous pen (Humalog KwikPen TID #15 mL (U-100) Insulin) lidocaine HCl 2 % mucosal solution 1 applic mucous membrane TID PRN 12/05/24 03/10/25 (Lidocaine Viscous) pain #100 mL lidocaine 5 % topical patch 1 patch topical QDAY #30 ea 12/13/24 03/10/25 lidocaine-prilocaine 2.5 %-2.5 % 30 g topical ONCE PRN pain #30 01/01/25 03/10/25 topical cream grams benzonatate 200 mg capsule See Rx Instructions .Route 01/10/25 03/10/25 .COMPLEX #30 caps blood sugar diagnostic (FreeStyle #100 ea 01/10/25 03/02/25 Lite Strips) olanzapine 5 mg tablet 5 mg PO QPM Nausea #60 tabs 01/10/25 03/10/25 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 sensor (FreeStyle #6 ea 01/17/25 03/02/25 Deep 3 Sensor device) diphenoxylate-atropine 2.5 1 tab PO QID PRN diarrhea #60 tabs 01/18/25 03/10/25 mg-0.025 mg tablet (Lomotil) 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 sensor (FreeStyle #3 ea 01/22/25 03/02/25 Deep 3 Plus Sensor device) hydromorphone 1 mg/mL oral liquid 3 - 4 mg (3 - 4 mL) PO Q4H PRN 01/24/25 03/10/25 pain #473 mL ondansetron 8 mg disintegrating 8 mg PO Q8H PRN nausea and 01/24/25 03/10/25 tablet vomiting #90 tabs 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,crusher wet ground mica,cont #1 ea 01/26/25 03/02/25 (FreeStyle Deep 3 [place]) levalbuterol HCl 1.25 mg/3 mL 1.25 mg inhalation Q12H 02/07/25 03/10/25 solution for nebulization famotidine 40 mg/5 mL (8 mg/mL) 40 mg (5 mL) PO QDAY #150 mL 02/08/25 03/10/25 oral suspension guaifenesin 100 mg/5 mL oral liquid 200 mg PO Q4H PRN congestion 02/10/25 03/10/25 insulin glargine 100 unit/mL (3 5 - 10 unit subcut DAILY 02/10/25 03/10/25 mL) subcutaneous pen (Lantus Solostar U-100 Insulin) gabapentin 300 mg/6 mL (6 mL) oral 200 - 300 mg PO TID 02/12/25 03/10/25 solution acetaminophen 500 mg tablet 1,000 mg (2 x 500 mg) PO TID PRN 02/19/25 03/10/25 pain #180 tabs [id number] 1 cap PO BID #60 caps 02/19/25 03/10/25 12,000-38,000-60,000 unit capsule,delayed rel (Creon) mirtazapine 7.5 mg tablet 15 mg (2 x 7.5 mg) feeding tube HS 02/19/25 03/11/25 #90 tabs metformin 1,000 mg tablet 500 mg (1/2 x 1,000 mg) feeding 02/21/25 03/10/25 tube HS #180 tabs alprazolam 0.5 mg disintegrating 0.5 mg PO BID-TID PRN Anxiety #60 03/02/25 03/10/25 tablet tabs apixaban 2.5 mg tablet 2.5 mg PO BID #60 tabs 03/11/25 03/11/25 amoxicillin 875 mg-potassium 1 tab PO BID 4 days #8 tabs 03/13/25 clavulanate 125 mg tablet PHYSICAL EXAM AT DISCHARGE Vital Signs: Vital Signs x48h Temp Pulse Resp BP Pulse Ox 03/13/25 14:59 98.1 F 93 20 131/87 H 93 General Appearance: positive No acute distress and Alert; negative Anxious Eyes Bilateral: positive Normal inspection, PERRL and EOMI ENT: positive ENT inspection nml, Pharynx nml and No signs of dehydration Neck: positive Nml inspection, Thyroid nml and No JVD Respiratory: positive Chest non-tender, No respiratory distress, Breath sounds nml and Rales (mild LLL); negative Wheezes or Rhonchi Cardiovascular: positive Regular rate & rhythm, No murmur and No gallop Peripheral Pulses: positive 2+ Abdomen: positive Non-tender, Nml bowel sounds and No distention; negative Tenderness, Guarding, Rebound, Hepatomegaly or Mass Back: positive Nml inspection; negative CVA tenderness (R) Skin: positive Color nml, No rash, Warm and Dry Extremities: positive Non-tender, Full ROM and No pedal edema Neurologic/Psychiatric: positive Oriented x3, Motor nml, Sensation nml and Mood/affect nml LABS 03/13/25 05:16 03/13/25 05:16 DIAGNOSTIC IMAGING Diagnostic Imaging Results: Final report reviewed FOLLOW UP Follow Up: Follow up with primary care provider. Follow up with oncologist. TIME SPENT Time Spent in Discharge (Minutes): 35 Discharge Plan Discharge Patient Disposition: Home, Self Care Condition: Stable Prescriptions: New amoxicillin-pot clavulanate 875-125 mg tablet 1 tab PO BID 4 Days Qty: 8 0RF Continued lidocaine HCl [Lidocaine Viscous] 2 % solution 1 applic mucous membrane TID PRN (Reason: pain) Qty: 100 3RF Rx Instructions: Mix 5 ml / 15 ml water to thin; use every 3 hours as need for throat pain lidocaine 5 % adhesive patch,medicated 1 patch topical QDAY Qty: 30 5RF Rx Instructions: leave on most painful area for up to 12 hrs then remove. Fresh patch daily. lidocaine-prilocaine 2.5-2.5 % cream 30 g topical ONCE PRN (Reason: pain) Qty: 30 2RF Rx Instructions: apply quarter inch amount over port site 1 hour prior to access as needed. benzonatate 200 mg capsule See Rx Instructions .ROUTE .COMPLEX Qty: 30 3RF Dose Instruction: TAKE ONE CAPSULE BY MOUTH EVERY EIGHT HOURS NEEDED FOR COUGH Rx Instructions: TAKE ONE CAPSULE BY MOUTH EVERY EIGHT HOURS NEEDED FOR COUGH. Do not exceed 3 caps per day. (DME) FreeStyle Lite Strips Strip See Rx Instructions .ROUTE .MEDSUPPLY Qty: 100 2RF Rx Instructions: Monitor in the AM and PM (DME) FreeStyle Deep 3 Sensor Device See Rx Instructions .Route Qty: 6 3RF Rx Instructions: Needs to take blood glucose 5 times daily. One in the AM one time prior to each meal times 3 and once in the evening (DME) FreeStyle Deep 3 Plus Sensor Device See Rx Instructions .Route Qty: 3 5RF Rx Instructions: Check blood glucose in the AM and PM ondansetron 8 mg tablet,disintegrating 8 mg PO Q8H PRN (Reason: nausea and vomiting) Qty: 90 1RF Rx Instructions: For use after chemotherapy. hydromorphone 1 mg/mL liquid 3 - 4 mg PO Q4H PRN (Reason: pain) Qty: 473 0RF (DME) FreeStyle Deep 3 [place] Misc See Rx Instructions .Route Qty: 1 0RF Rx Instructions: Needs to take blood glucose 5 times daily. One in the AM one time prior to each meal times 3 and once in the evening famotidine 40 mg/5 mL (8 mg/mL) suspension for reconstitution 40 mg PO QDAY Qty: 150 2RF apixaban 2.5 mg tablet 2.5 mg PO BID Qty: 60 5RF Patient Comments: Pt states that she has not been taking this due to an insurance issue with filling the prescription. naloxone [Narcan] 4 mg/actuation spray,non-aerosol 4 mg intranasal Q2M PRN (Reason: opioid overdose) Qty: 2 4RF Rx Instructions: spray 1 dose into ONE nostril; alternate nostrils w each dose until help arrives insulin lispro [Humalog KwikPen Insulin] 100 unit/mL insulin pen 1 - 4 unit subcut TID Qty: 15 0RF diphenoxylate-atropine [Lomotil] 2.5-0.025 mg tablet 1 tab PO QID PRN (Reason: diarrhea) Qty: 60 3RF levalbuterol HCl 1.25 mg/3 mL solution for nebulization 1.25 mg inhalation Q12H insulin glargine [Lantus Solostar U-100 Insulin] 100 unit/mL (3 mL) insulin pen 5 - 10 unit subcut DAILY guaifenesin 100 mg/5 mL liquid 200 mg PO Q4H PRN (Reason: congestion) Rx Instructions: Take with lots of water to help push out secretions. Creon 12,000-38,000 -60,000 unit capsule,delayed release(DR/EC) 1 cap PO BID Qty: 60 2RF Rx Instructions: administer with meals and/or snacks mirtazapine 7.5 mg tablet 15 mg feeding tube HS Qty: 90 3RF acetaminophen 500 mg tablet 1,000 mg PO TID PRN (Reason: pain) Qty: 180 3RF sodium chloride 3 % solution for nebulization 4 ml inhalation BID prochlorperazine maleate [Compazine] 10 mg tablet 10 mg PO TID PRN (Reason: nausea and vomiting) Qty: 90 1RF (DME) lancets [CareTouch Twist Lancet] 30 gauge misc See Rx Instructions .Route Qty: 100 2RF Rx Instructions: As directed (DME) pen needle, diabetic [Comfort EZ Pen [place]] 31 gauge x 3/16" needle See Rx Instructions .Route Qty: 100 0RF Rx Instructions: As directed with Lantus Solostar pen budesonide-formoterol [Symbicort] 80-4.5 mcg/actuation HFA aerosol inhaler 2 puff inhalation BID Qty: 10.2 3RF loperamide [Imodium A-D] 2 mg tablet 2 mg PO Q4H PRN (Reason: diarrhea) Rx Instructions: Take 4 mg daily routine to prevent diarrhea. Administer 2 mg after each loose stool until symptoms controlled; do not exceed 8 mg per 24 hrs olanzapine 5 mg tablet 5 mg PO QPM Qty: 60 2RF Rx Instructions: Take in the evening on night #2, 3, and 4 post chemotherapy weekly gabapentin 300 mg/6 mL (6 mL) solution 200 - 300 mg PO TID alprazolam 0.5 mg tablet,disintegrating 0.5 mg PO BID-TID PRN (Reason: Anxiety) Qty: 60 0RF Rx Instructions: Use sparingly due to sedation and addiction metformin 1,000 mg tablet 500 mg feeding tube HS Qty: 180 3RF Activity Restrictions: Activity as Tolerated Diet: Soft Health Concerns: You came in because you were having shortness of breath. You had weakness and fatigue as well. You are found to have a pneumonia. We started you on IV antibiotics for this. You have slowly gotten better. I would like you to continue 4 more days of oral antibiotics on discharge. While you were here, we noted that your blood levels were very low. You received a blood transfusion. This is likely due to chemotherapy side effects. I understand that you have an appointment with Dr. Gutierrez in the next week. Please have them recheck your blood levels at your next appointment. We talked about how you did not have any blood in your stools, nor did you have any dark stools, or any large bruisesif that changes, please return to the emergency room. We are glad you are feeling better, thank you for letting us to take care of you. Print Language: Micronesian Patient Instructions: Aspiration Dysphagia Stand Alone Forms: PCP List Follow-up Care: Sean Gutierrez MD [Primary Care Provider] -
[2025-03-13 15:00] VITALS: BP 131/87
== END 2025-03-13 15:30 | disposition home or self-care (01) | DRG 177 ==
LOC: ED 17:48 → MS2 22:45
PROVIDERS: ADMIT Internal Medicine; ATTEND Internal Medicine
DX: Z87.891 Personal history of nicotine dependence; J44.0 Chronic obstructive pulmonary disease with (acute) lower respiratory infection; C33 Malignant neoplasm of trachea; E87.6 Hypokalemia; D64.81 Anemia due to antineoplastic chemotherapy; R13.10 Dysphagia, unspecified; J44.9 Chronic obstructive pulmonary disease, unspecified; E43 Unspecified severe protein-calorie malnutrition; D61.1 Drug-induced aplastic anemia; E78.5 Hyperlipidemia, unspecified; Z68.1 Body mass index [BMI] 19.9 or less, adult; Z86.711 Personal history of pulmonary embolism; K86.1 Other chronic pancreatitis; T45.1X5A Adverse effect of antineoplastic and immunosuppressive drugs, initial encounter; R63.0 Anorexia; E87.1 Hypo-osmolality and hyponatremia; F41.9 Anxiety disorder, unspecified; J69.0 Pneumonitis due to inhalation of food and vomit; R53.1 Weakness; R00.0 Tachycardia, unspecified; Z99.81 Dependence on supplemental oxygen; E83.42 Hypomagnesemia; K21.9 Gastro-esophageal reflux disease without esophagitis; Z79.4 Long term (current) use of insulin; G89.3 Neoplasm related pain (acute) (chronic); E11.9 Type 2 diabetes mellitus without complications; Z79.84 Long term (current) use of oral hypoglycemic drugs